=== PATIENT | male | born 1930 | race Caucasian/White ===

== ENCOUNTER 2016-10-12 12:40 | Inpatient (IN) | payer OTHER, MEDICARE ==
[~2016-10-12] VITALS: Ht 182.9 cm; Wt 91.4 kg
[~2016-10-12 12:40] MED LIST: ALEN70TA4 PO; ASCA500 PO; ASPEC81 PO; CLTP PO; CMD25 PO; HYDR-3419 PO; MAGN400T6 PO; MULT-506 PO; SIMV10TA2 PO
[2016-10-12] MEDS ORDERED: CMD/25 PO ×2 (15:46→16:35)
[2016-10-12] MEDS ORDERED: CHOL20005 PO (15:46)
[2016-10-12] MEDS ORDERED: METO-551 PO (15:46)
[2016-10-12] MEDS ORDERED: OMEG-112 PO (15:46)
--- NOTE | 2016-10-12 16:26 | EMERGENCY ROOM VISIT NOTE ---
History First contact with patient: 15:42 (David Marquez MD) First contact with patient: 15:41 (Murray Farris M.D.) Chief Complaint: RESPIRATORY PROBLEMS Stated Complaint: RESP ISSUES-HAS PACEMAKER Nursing Triage Summary: woke up this morning with sob. denies chest pains. denies cough. does not wear home o2. "i just feel like I cant catch my breath" (David Marquez MD) History of Present Illness The patient is a 85 year old male w/ Hx of Afib on Coumadin, Metoprolol a who presents to the Emergency Room with complaints of Generalized weakness and increased SOB. Patient reports he was walking around the house this morning and when trying to make it up a step going into the kitchen he felt increasingly weak like hr couldn't make it up the step. He denies presyncope, syncope, Chest pain, palpitation. He later to his bedroom and relaxed for a few hrs and felt better. Upon arrival of his son to the house, son was concerned about his symptoms and patient subsequently called his University Manager (Len) Dr. Rowland. Dr. Rowland then advised patient to get evaluated at Emergency Dept. Patient reports he never had previous similar symptoms. Pt denies headache, change in vision, fevers, , nausea, vomiting, diarrhea, pain with urination, and change in stool. NO hx of CAD, CVA, CHF, VTE. Patient reportedly had a stress test within the last year that was normal. (David Marquez MD) Review of Systems Pt denies headache, change in vision, fevers, chest pain, shortness of breath, nausea, vomiting, diarrhea, pain with urination, and melena. (David Marquez MD) Past Medical/Surgical History Medical Problems: (1) Atrial fibrillation (2) CKD (chronic kidney disease) stage 3, GFR 30-59 ml/min (3) Generalized weakness (4) History of left heart catheterization (5) HTN (hypertension) (6) Hyperlipidemia (7) SOB (shortness of breath) (8) Tachy-saray syndrome Surgical Problems: (1) History of appendectomy (2) History of cholecystectomy (Murray Farris M.D.) Atrial Fibrillation (David Marquez MD) Social History Smoking Status: Never Smoker Alcohol Use: none Marital Status: Housing Status: lives with family Occupation Status: retired (David Marquez MD) Current/Historical Medications Scheduled Ascorbic Acid (Vitamin C 500 mg), 500 MG PO DAILY Aspirin (Aspirin Ec), 81 MG PO DAILY Calcium Carbonate-Vitamin D W/ (Caltrate 600 Plus), 1 TAB PO DAILY Cholecalciferol (Vitamin D3), 2,000 UNIT PO DAILY Fluorouracil (Topical) (Efudex), 1 APPLN TOP DAILY Krill Oil (Krill Oil 500 mg), 1 CAP PO DAILY Magnesium Oxide (Mag-Ox), 400 MG PO DAILY Metoprolol Tartrate (Lopressor), 50 MG PO BID Multivitamin (Multivitamin), 1 TAB PO DAILY Simvastatin (Zocor), 10 MG PO HS Warfarin Sod (Coumadin), 5 MG PO 5XWK Warfarin Sod (Coumadin), 2.5 MG PO MON & FRI Allergies Coded Allergies: Apple (Verified Allergy, Severe, SWELLING OF LIPS AND HIVES, 07/27/12) Coffee (Verified Allergy, Severe, SWELLING OF LIPS AND HIVES, 07/27/12) Flounder (Verified Allergy, Severe, SWELLING OF LIPS AND HIVES, 07/27/12) Penicillins (Verified Adverse Reaction, Intermediate, GIVES PATIENT THRUSH , 07/27/12) Meperidine (Verified Adverse Reaction, Mild, LIGHTHEADEDNESS, 08/23/09) Physical Exam Vital Signs Date Time Temp Pulse Resp B/P Pulse Ox O2 Delivery O2 Flow Rate FiO2 10/12/16 17:20 84 16 147/75 96 Room Air 10/12/16 16:35 89 10/12/16 15:52 84 20 158/79 100 Room Air 10/12/16 12:50 99 Room Air 10/12/16 12:48 36.4 88 26 123/74 99 Room Air (Murray Farris M.D.) Physical Exam GENERAL: alert, well appearing, well nourished, no distress, non-toxic EYE EXAM: normal conjunctiva, PERRL and EOM's grossly intact OROPHARYNX: no exudate, no erythema, lips, buccal mucosa, and tongue normal and mucous membranes are moist NECK: supple, no nuchal rigidity, no adenopathy, non-tender, NO elevated JVD LUNGS: Clear to auscultation. Normal chest wall mechanics HEART: no murmurs, Irregularly Irregular Rhythm ABDOMEN: abdomen soft, non-tender, normo-active bowel sounds, no masses, no rebound or guarding. SKIN: no rashes and no bruising UPPER EXTREMITIES: upper extremities are grossly normal. LOWER EXTREMITIES: No pitting edema. (David Marquez MD) Medical Decision & Procedures Laboratory Results 10/12/16 16:47 Red Blood Count 3.63, Mean Corpuscular Volume 87.3, Mean Corpuscular Hemoglobin 28.9, Mean Corpuscular Hemoglobin Concent 33.1, Mean Platelet Volume 11.6, Neutrophils (%) (Auto) 69.5, Lymphocytes (%) (Auto) 17.3, Monocytes (%) (Auto) 10.6, Eosinophils (%) (Auto) 2.2, Basophils (%) (Auto) 0.2, Neutrophils # (Auto ) 4.38, Lymphocytes # (Auto) 1.09, Monocytes # (Auto) 0.67, Eosinophils # (Auto ) 0.14, Basophils # (Auto) 0.01 10/12/16 16:47 Test 10/12/16 16:47 White Blood Count 6.30 K/uL (4.8-10.8) Red Blood Count 3.63 M/uL (4.7-6.1) Hemoglobin 10.5 g/dL (14.0-18.0) Hematocrit 31.7 % (42-52) Mean Corpuscular Volume 87.3 fL (80-100) Mean Corpuscular Hemoglobin 28.9 pg (25-34) Mean Corpuscular Hemoglobin Concent 33.1 g/dl (32-36) Platelet Count 161 K/uL (130-400) Mean Platelet Volume 11.6 fL (7.4-10.4) Neutrophils (%) (Auto) 69.5 % Lymphocytes (%) (Auto) 17.3 % Monocytes (%) (Auto) 10.6 % Eosinophils (%) (Auto) 2.2 % Basophils (%) (Auto) 0.2 % Neutrophils # (Auto) 4.38 K/uL (1.4-6.5) Lymphocytes # (Auto) 1.09 K/uL (1.2-3.4) Monocytes # (Auto) 0.67 K/uL (0.11-0.59) Eosinophils # (Auto) 0.14 K/uL (0-0.5) Basophils # (Auto) 0.01 K/uL (0-0.2) RDW Standard Deviation 45.5 fL (36.4-46.3) RDW Coefficient of Variation 14.2 % (11.5-14.5) Immature Granulocyte % (Auto) 0.2 % Immature Granulocyte # (Auto) 0.01 K/uL (0.00-0.02) Prothrombin Time 33.9 SECONDS (9.0-12.0) Prothromb Time International Ratio 3.0 (0.9-1.1) Urine Color YELLOW Urine Appearance CLEAR (CLEAR) Urine pH 5.5 (4.5-7.5) Urine Specific [place] 1.020 (1.000-1.030) Urine Protein NEG (NEG) Urine Glucose (UA) NEG (NEG) Urine Ketones NEG (NEG) Urine Occult Blood NEG (NEG) Urine Nitrite NEG (NEG) Urine Bilirubin NEG (NEG) Urine Urobilinogen NEG (NEG) Urine Leukocyte Esterase NEG (NEG) Anion Gap 5.0 mmol/L (3-11) Est Creatinine Clear Calc Drug Dose 75.6 ml/min Estimated GFR () 91.9 Estimated GFR (Non- 79.3 BUN/Creatinine Ratio 59.4 (10-20) Calcium Level 8.4 mg/dl (8.5-10.1) Magnesium Level 2.3 mg/dl (1.8-2.4) Troponin I < 0.015 ng/ml (0-0.045) (Murray Farris M.D.) Medications Administered Medications (Trade) Dose Ordered Sig/Melanie Route Start Time Stop Time Status Last Admin Dose Admin Sodium Chloride (Nss 500ml) 500 ml @ 500 mls/hr Q1H IV 10/12/16 17:45 10/12/16 21:01 DC 10/12/16 17:51 500 MLS/HR (Murray Farris M.D.) Medical Decision 85 yo M w/ hx of Afib on Coumadin, Metoprolol, p/w Generalized weakness, SOB on exertion, afebrile, normal breath sounds , normal O2 saturation Weakness Differential diagnoses includes but is not limited to pneumonia, bronchitis, COPD/Asthma exacerbation, pneumothorax, pulmonary embolism, congestive heart failure, acute coronary syndrome CBC mild anemia H/H 10.5/31.7 INR: 3 BMP unremarkable Mg wnl CXR: chronic changes, no acute process ECG: Afib with T-wave inversions Troponin <0.015, new onset CAD unlikely -Given 500 ml Fluid -Based on weakness with new ekg changes patient needs further evaluation -[facility]. (David Marquez MD) Resident Physician Supervision Note: Dr. Marquez was resident physician during care of patient. I separately evaluated patient and did history and exam. I discussed the case with the resident and generally agree with the findings and plan. Please see my full H& P note for complete documentation. Documented By: Murray Farris MD (Murray Farris M.D.) Impression Primary Impression: Generalized weakness Additional Impression: Dyspnea on exertion Departure Information Dispostion Admitted as an inpatient Referrals Daniel Rowland M.D. (PCP) Patient Instructions My [facility] Resident Tracking Resident Involvement: Resident Care Provided Care Provided: Adult ED (David Marquez MD) Problem Qualifiers
--- NOTE | 2016-10-12 16:32 | DIAGNOSTIC IMAGING REPORT ---
CHEST ONE VIEW PORTABLE CLINICAL HISTORY: SOB dyspnea COMPARISON STUDY: 04/29/2010 FINDINGS: Mild stable cardiomegaly. Small fixed hiatal hernia. Diaphragms smooth. Lungs are clear. Chronic parenchymal prominence left lung base. IMPRESSION: Chronic change. No acute process. Electronically signed by: Red Hoang M.D. 10/12/2016 4:30 PM Dictated Date/Time: 10/12/2016 4:29 PM
[2016-10-12] MEDS ORDERED: CALCTAB7 PO (16:35)
[2016-10-12] MEDS ORDERED: ASPI81TA28 PO (16:35)
[2016-10-12] MEDS ORDERED: ASCO500C43 PO (16:35)
[2016-10-12] MEDS ORDERED: FLUO5CRE TOP (16:35)
[2016-10-12 17:11] LABS: BASO % 0.2 %; BASO ABS # 0.01 K/uL (0-0.2); COMPLETE YES; EOS % 2.2 %; HEMATOCRIT 31.7 % (42-52); IG% 0.2 %; LYMPH % 17.3 %; LYMPH ABS # 1.09 K/uL (1.2-3.4); MEAN CELL VOLUME 87.3 fL (80-100); MEAN CORPUSCULAR HEMOGLOBIN 28.9 pg (25-34); MEAN CORPUSCULAR HGB CONC 33.1 g/dl (32-36); MEAN PLATELET VOLUME 11.6 fL (7.4-10.4); MONO % 10.6 %; NEUT % 69.5 %; PLATELET COUNT 161 K/uL (130-400); RED BLOOD COUNT 3.63 M/uL (4.7-6.1)
[2016-10-12 17:24] LABS: URINE APPEARANCE CLEAR (CLEAR); URINE BILIRUBIN NEG (NEG); URINE COLOR YELLOW; URINE NITRITE NEG (NEG); URINE PH 5.5 (4.5-7.5); UROBILINOGEN NEG (NEG)
[2016-10-12 17:33] LABS: BLOOD UREA NITROGEN 52 mg/dl (7-18); BUN/CREATININE RATIO 59.4 (10-20); CALCIUM 8.4 mg/dl (8.5-10.1); CARBON DIOXIDE 26 mmol/L (21-32); CHLORIDE 111 mmol/L (98-107); CREATININE 0.87 mg/dl (0.60-1.40); GLUCOSE 84 mg/dl (70-99); MAGNESIUM 2.3 mg/dl (1.8-2.4); POTASSIUM 4.2 mmol/L (3.5-5.1); SODIUM 142 mmol/L (136-145)
[2016-10-12 17:35] LABS: MANUAL MICROSCOPIC REQUIRED? NO; REVIEW REQ? NO
[2016-10-12 17:42] LABS: PROTHROMBIN TIME (PATIENT) 33.9 SECONDS (9.0-12.0)
[2016-10-12] MEDS ORDERED: SODIUM CHLORIDE 0.9% 500ML 500 ML IV SCH (17:45)
--- NOTE | 2016-10-12 18:23 | EMERGENCY ROOM VISIT NOTE ---
History Report prepared by Zoey: Jennifer Begum Under the Supervision of: Dr. Murray Farris M.D. First contact with patient: 15:41 Chief Complaint: RESPIRATORY PROBLEMS Stated Complaint: RESP ISSUES-HAS PACEMAKER Nursing Triage Summary: woke up this morning with sob. denies chest pains. denies cough. does not wear home o2. "i just feel like I cant catch my breath" History of Present Illness The patient is a 85 year old male who presents to the Emergency Room with complaints of improved shortness of breath that started this morning. He states that he feels better now than he did this morning and he states that he slept well last night. The patient walked into the kitchen to get a pill bottle after he ate cereal for breakfast and when he was walking back from the kitchen he felt very weak and short of breath, which made it difficult for him to go down the one step between his kitchen and the family room. He denies any pre-syncope symptoms, as well as LOC. The patient also denies recent head trauma, cough, and melena. The patient's reports that the patient has been experiencing clear rhinorrhea recently. The patient states that as the day went on his symptoms seemed to resolve, but when his son got to the house, he was concerned and called the patient's diamond assorter, Dr. Rowland. Dr. Rowland recommended bringing the patient into the ED for further evaluation. The patient has a history of atrial fibrillation and is on Coumadin. He also has a pacemaker in place. The patient states that when his INR most recently, it was normal. He adds that he is due for a check-up with his PCP next Wednesday. The patient states that he has been eating and drinking normally. He also states that he is taking is medications regularly. The patient denies recent sick contacts. The patient adds that he had a stress test done within the last year that was unremarkable. Source of History: patient, spouse/significant other () Onset: this morning Position: chest Quality: other (shortness of breath) Timing: other (improved) Associated Symptoms: + weakness (generalized), No LOC, No cough, No melena Note: clear rhinorrhea, no pre-syncope symptoms, as well as LOC, no recent head trauma Review of Systems See HPI for pertinent positives & negatives. A total of 10 systems reviewed and were otherwise negative. Past Medical & Surgical Medical Problems: (1) Atrial fibrillation (2) CKD (chronic kidney disease) stage 3, GFR 30-59 ml/min (3) Generalized weakness (4) History of left heart catheterization (5) HTN (hypertension) (6) Hyperlipidemia (7) SOB (shortness of breath) (8) Tachy-saray syndrome Surgical Problems: (1) History of appendectomy (2) History of cholecystectomy Family History Cancer Heart disease Social History Smoking Status: Never Smoker Marital Status: Housing Status: lives with family Current/Historical Medications Scheduled Ascorbic Acid (Vitamin C 500 mg), 500 MG PO DAILY Aspirin (Aspirin Ec), 81 MG PO DAILY Calcium Carbonate-Vitamin D W/ (Caltrate 600 Plus), 1 TAB PO DAILY Cholecalciferol (Vitamin D3), 2,000 UNIT PO DAILY Fluorouracil (Topical) (Efudex), 1 APPLN TOP DAILY Krill Oil (Krill Oil 500 mg), 1 CAP PO DAILY Magnesium Oxide (Mag-Ox), 400 MG PO DAILY Metoprolol Tartrate (Lopressor), 50 MG PO BID Multivitamin (Multivitamin), 1 TAB PO DAILY Simvastatin (Zocor), 10 MG PO HS Warfarin Sod (Coumadin), 5 MG PO 5XWK Warfarin Sod (Coumadin), 2.5 MG PO MON & FRI Allergies Coded Allergies: Apple (Verified Allergy, Severe, SWELLING OF LIPS AND HIVES, 07/27/12) Coffee (Verified Allergy, Severe, SWELLING OF LIPS AND HIVES, 07/27/12) Flounder (Verified Allergy, Severe, SWELLING OF LIPS AND HIVES, 07/27/12) Penicillins (Verified Adverse Reaction, Intermediate, GIVES PATIENT THRUSH , 07/27/12) Meperidine (Verified Adverse Reaction, Mild, LIGHTHEADEDNESS, 08/23/09) Physical Exam Vital Signs Date Time Temp Pulse Resp B/P Pulse Ox O2 Delivery O2 Flow Rate FiO2 10/12/16 17:20 84 16 147/75 96 Room Air 10/12/16 16:35 89 10/12/16 15:52 84 20 158/79 100 Room Air 10/12/16 12:50 99 Room Air 10/12/16 12:48 36.4 88 26 123/74 99 Room Air Physical Exam GENERAL: Patient is well appearing and in no acute distress. HEENT: No acute trauma, normocephalic atraumatic, mucous membranes moist, no nasal congestion, no scleral icterus. NECK: No stridor, no adenopathy, no meningismus, trachea is midline. LUNGS: No dyspnea. Clear to auscultation and equal bilaterally. No wheeze, no rhonchi. HEART: Regular rate and irregular rhythm. No murmurs, rubs, gallops appreciated. ABDOMEN: Soft, nontender, bowel sounds positive, no masses appreciated, no peritonitis. BACK: No midline tenderness, no CVA tenderness EXTREMITIES: Normal motion all extremities, no cyanosis, no edema. NEUROLOGIC: Alert and oriented, no acute motor or sensory deficits, no focal weakness, cranial nerves grossly intact. SKIN: No rash, no jaundice, no diaphoresis. Medical Decision & Procedures ER Provider Diagnostic Interpretation: X ray results are stated below per my interpretation and the radiologist's interpretation. CHEST ONE VIEW PORTABLE IMPRESSION: Chronic change. No acute process. Electronically signed by: Red Hoang M.D. 10/12/2016 4:30 PM Dictated Date/Time: 10/12/2016 4:29 PM Laboratory Results 10/12/16 16:47 Red Blood Count 3.63, Mean Corpuscular Volume 87.3, Mean Corpuscular Hemoglobin 28.9, Mean Corpuscular Hemoglobin Concent 33.1, Mean Platelet Volume 11.6, Neutrophils (%) (Auto) 69.5, Lymphocytes (%) (Auto) 17.3, Monocytes (%) (Auto) 10.6, Eosinophils (%) (Auto) 2.2, Basophils (%) (Auto) 0.2, Neutrophils # (Auto ) 4.38, Lymphocytes # (Auto) 1.09, Monocytes # (Auto) 0.67, Eosinophils # (Auto ) 0.14, Basophils # (Auto) 0.01 10/12/16 16:47 Test 10/12/16 16:47 White Blood Count 6.30 K/uL (4.8-10.8) Red Blood Count 3.63 M/uL (4.7-6.1) Hemoglobin 10.5 g/dL (14.0-18.0) Hematocrit 31.7 % (42-52) Mean Corpuscular Volume 87.3 fL (80-100) Mean Corpuscular Hemoglobin 28.9 pg (25-34) Mean Corpuscular Hemoglobin Concent 33.1 g/dl (32-36) Platelet Count 161 K/uL (130-400) Mean Platelet Volume 11.6 fL (7.4-10.4) Neutrophils (%) (Auto) 69.5 % Lymphocytes (%) (Auto) 17.3 % Monocytes (%) (Auto) 10.6 % Eosinophils (%) (Auto) 2.2 % Basophils (%) (Auto) 0.2 % Neutrophils # (Auto) 4.38 K/uL (1.4-6.5) Lymphocytes # (Auto) 1.09 K/uL (1.2-3.4) Monocytes # (Auto) 0.67 K/uL (0.11-0.59) Eosinophils # (Auto) 0.14 K/uL (0-0.5) Basophils # (Auto) 0.01 K/uL (0-0.2) RDW Standard Deviation 45.5 fL (36.4-46.3) RDW Coefficient of Variation 14.2 % (11.5-14.5) Immature Granulocyte % (Auto) 0.2 % Immature Granulocyte # (Auto) 0.01 K/uL (0.00-0.02) Prothrombin Time 33.9 SECONDS (9.0-12.0) Prothromb Time International Ratio 3.0 (0.9-1.1) Urine Color YELLOW Urine Appearance CLEAR (CLEAR) Urine pH 5.5 (4.5-7.5) Urine Specific [place] 1.020 (1.000-1.030) Urine Protein NEG (NEG) Urine Glucose (UA) NEG (NEG) Urine Ketones NEG (NEG) Urine Occult Blood NEG (NEG) Urine Nitrite NEG (NEG) Urine Bilirubin NEG (NEG) Urine Urobilinogen NEG (NEG) Urine Leukocyte Esterase NEG (NEG) Anion Gap 5.0 mmol/L (3-11) Est Creatinine Clear Calc Drug Dose 75.6 ml/min Estimated GFR () 91.9 Estimated GFR (Non- 79.3 BUN/Creatinine Ratio 59.4 (10-20) Calcium Level 8.4 mg/dl (8.5-10.1) Magnesium Level 2.3 mg/dl (1.8-2.4) Troponin I < 0.015 ng/ml (0-0.045) Laboratory results as reviewed by me. Medications Administered Medications (Trade) Dose Ordered Sig/Melanie Route Start Time Stop Time Status Last Admin Dose Admin Sodium Chloride (Nss 500ml) 500 ml @ 500 mls/hr Q1H IV 10/12/16 17:45 10/12/16 21:01 DC 10/12/16 17:51 500 MLS/HR ECG Indication: SOB/dyspnea Rate (beats per minute): 85 Rhythm: atrial fibrillation Findings: T-wave inversion (Anterolateral) Comparison ECG Date: Multiple Prior Change: Anterolateral T-wave inversions are new compared to previous EKGs, atrial fibrillation has replaced a paced rhythm in the patient's most recent EKGs ED Course 1545: The medical device engineer, Dr. David Marquez, evaluated the patient at this time. We discussed his findings and potential treatment plans. 1640: The patient was evaluated in room B8. A complete history and physical exam was performed. 1745: Ordered Sodium Chloride 500 ml @ 500 mls/hr IV 175: Upon Dr. Marquez's reevaluation, the patient is resting comfortably. He discussed results and treatment plan with the patient. The patient verbalized understanding and agreement with the treatment plan. The patient will be evaluated for further management. 1754: Dr. Marquez discussed the patient's case with Nelly Harrington. The patient will be evaluated for further treatment and disposition. Medical Decision Differential: Sepsis, Infectious (UTI/Pneumonia/Meningitis/etc), Metabolic/ Electrolyte Abnormality, Cardiac, Hepatic, Endocrine, Toxicologic, Neurologic, amongst other pathologies entertained. 85 yr old male with acute onset generalized weakness starting earlier today which he notes is mildly better than earlier but still persists. He has clear T wave inversions on EKG which have acutely changed from previous EKGs. With this and symptoms I feel monitoring further reasonable and hospitalist was consulted. Consults Time Called: 1750 Consulting Physician: Nelly Harrington Returned Call: 1754 Dr. Marquez discussed the patient's case with Nelly Harrington. The patient will be evaluated for further treatment and disposition. Impression Primary Impression: Generalized weakness Additional Impression: T wave inversion in EKG Scribe Attestation The scribe's documentation has been prepared under my direction and personally reviewed by me in its entirety. I confirm that the note above accurately reflects all work, treatment, procedures, and medical decision making performed by me. Departure Information Dispostion Being Evaluated By Hospitalist Referrals Daniel Rowland M.D. (PCP) Patient Instructions My [facility] Problem Qualifiers
[2016-10-12] MEDS ORDERED: NITROGLYCERIN 0.4 MG SL PER TAB CHARGE SL PRN (18:45)
[2016-10-12] MEDS ORDERED: ONDANSETRON INJ 2 MG/ML 2 ML VIAL IV PRN (18:45)
[2016-10-12] MEDS ORDERED: ACETAMINOPHEN 325 MG TAB PO PRN (18:45)
[2016-10-12] MEDS ORDERED: KRIL1CAP24 PO (18:49)
[2016-10-12] MEDS ORDERED: WARFARIN SOD 2.5 MG TAB PO SCH (19:00)
--- NOTE | 2016-10-12 19:14 | History and Physical ---
History & Physical Date & Time of Service: Oct 12, 2016 at 18:55 Chief Complaint: Resp Issues-Has Pacemaker Primary Care Physician: Rambo Castro D.O. History of Present Illness Source: patient This is an 85 y/o male with PMHx of CKD stage 3, Atrial Fibrillation on Coumadin , HTN, Dyslipidemia and other problems as outlined below who presents to the ED c/o generalized weakness that began this morning Today, patient had just finished eating his breakfast when he became very weak to the point that he was unable to climb up one strep. His weakness was associated with exertional SOB. Patient was eventually able to climb the step however he felt completely wiped out and exhausted. Yesterday patient climbed 13 steps to the basement with no issues. Pt called his commission specialist (Dr. Rowland) today who recommended he go to the ED for further evaluation. Pt has a history of Afib on Coumadin. He had a negative stress test in October 2015. Pt has no history of CAD or PE. He currently lives at home with his . Pt denies fever/chills, diaphoresis, chest pain, palpitations, syncope, pre-syncope, wheezing, abd pain, N/V, bowel or bladder issues, LE edema ,calf pain, unilateral weakness, facial droop, slurred speech, lightheadedness/dizziness. In the ED, vitals are stable. Trop is negative and EKG + T wave inversions in inferior and anterolateral leads. CXR no acute process. Pt is stable and will be admitted for further evaluation and treatment. 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 Status: Chronic Surgical Problems: (1) History of appendectomy Status: Resolved (2) History of cholecystectomy Status: Resolved Family History Cancer Heart disease Social History Smoking Status: Never Smoker Alcohol Use: none Drug Use: none Marital Status: Housing status: lives with significant other Occupational Status: retired Immunizations History of Influenza Vaccine: No History of Tetanus Vaccine?: Yes History of Pneumococcal: Unknown History of Hepatitis B Vaccine: No Multi-Drug Resistant Organisms History of MDRO: No Allergies Coded Allergies: Apple (Verified Allergy, Severe, SWELLING OF LIPS AND HIVES, 07/27/12) Coffee (Verified Allergy, Severe, SWELLING OF LIPS AND HIVES, 07/27/12) Flounder (Verified Allergy, Severe, SWELLING OF LIPS AND HIVES, 07/27/12) Penicillins (Verified Adverse Reaction, Intermediate, GIVES PATIENT THRUSH , 07/27/12) Meperidine (Verified Adverse Reaction, Mild, LIGHTHEADEDNESS, 08/23/09) Home Medications Scheduled Ascorbic Acid (Vitamin C 500 mg), 500 MG PO DAILY Aspirin (Aspirin Ec), 81 MG PO DAILY Calcium Carbonate-Vitamin D W/ (Caltrate 600 Plus), 1 TAB PO DAILY Cholecalciferol (Vitamin D3), 2,000 UNIT PO DAILY Fluorouracil (Topical) (Efudex), 1 APPLN TOP DAILY Krill Oil (Krill Oil 500 mg), 1 CAP PO DAILY Magnesium Oxide (Mag-Ox), 400 MG PO DAILY Metoprolol Tartrate (Lopressor), 50 MG PO BID Multivitamin (Multivitamin), 1 TAB PO DAILY Simvastatin (Zocor), 10 MG PO HS Warfarin Sod (Coumadin), 5 MG PO 5XWK Warfarin Sod (Coumadin), 2.5 MG PO MON & FRI Review of Systems Constitutional: + fatigue, + weakness, No chills, No fever, No sweats Eyes: No diplopia, No worsening of vision ENT: No hearing loss Respiratory: + dyspnea on exertion, + shortness of breath, No cough, No dyspnea at rest Cardiovascular: No chest pain, No claudication, No edema, No palpitations Abdomen: No constipation, No diarrhea, No nausea, No pain, No vomiting Musculoskeletal: No calf pain, No swelling Genitourinary - Male: No dysuria Neurologic: No weakness Psychiatric: No depression symptoms Endocrine: + fatigue Hematologic / Lymphatic: No abnormal bleeding/bruising Integumentary: No new/changing skin lesions Physical Exam Vital Signs Date Time Temp Pulse Resp B/P Pulse Ox O2 Delivery O2 Flow Rate FiO2 10/12/16 17:20 84 16 147/75 96 Room Air 10/12/16 16:35 89 10/12/16 15:52 84 20 158/79 100 Room Air 10/12/16 12:50 99 Room Air 10/12/16 12:48 36.4 88 26 123/74 99 Room Air General Appearance: WD/WN, no apparent distress, + pertinent finding (Pt is laying in bed with and 2 sons at bedside ) Head: normocephalic, atraumatic Eyes: normal inspection ENT: hearing grossly normal Neck: supple Respiratory/Chest: chest non-tender, lungs clear, normal breath sounds, no respiratory distress Cardiovascular: no edema, no murmur, + irregularly irregular (rate controlled) Abdomen/GI: normal bowel sounds, non tender, soft Back: normal inspection Extremities/Musculoskelatal: normal inspection, no calf tenderness, no pedal edema Neurologic/Psych: alert, normal mood/affect, oriented x 3 Skin: normal color, warm/dry Diagnostics Laboratory Results Results Past 24 Hours Test 10/12/16 16:47 Range/Units White Blood Count 6.30 4.8-10.8 K/uL Red Blood Count 3.63 4.7-6.1 M/uL Hemoglobin 10.5 14.0-18.0 g/dL Hematocrit 31.7 42-52 % Mean Corpuscular Volume 87.3 80-100 fL Mean Corpuscular Hemoglobin 28.9 25-34 pg Mean Corpuscular Hemoglobin Concent 33.1 32-36 g/dl Platelet Count 161 130-400 K/uL Mean Platelet Volume 11.6 7.4-10.4 fL Neutrophils (%) (Auto) 69.5 % Lymphocytes (%) (Auto) 17.3 % Monocytes (%) (Auto) 10.6 % Eosinophils (%) (Auto) 2.2 % Basophils (%) (Auto) 0.2 % Neutrophils # (Auto) 4.38 1.4-6.5 K/uL Lymphocytes # (Auto) 1.09 1.2-3.4 K/uL Monocytes # (Auto) 0.67 0.11-0.59 K/uL Eosinophils # (Auto) 0.14 0-0.5 K/uL Basophils # (Auto) 0.01 0-0.2 K/uL RDW Standard Deviation 45.5 36.4-46.3 fL RDW Coefficient of Variation 14.2 11.5-14.5 % Immature Granulocyte % (Auto) 0.2 % Immature Granulocyte # (Auto) 0.01 0.00-0.02 K/uL Prothrombin Time 33.9 9.0-12.0 SECONDS Prothromb Time International Ratio 3.0 0.9-1.1 Urine Color YELLOW Urine Appearance CLEAR CLEAR Urine pH 5.5 4.5-7.5 Urine Specific [place] 1.020 1.000-1.030 Urine Protein NEG NEG Urine Glucose (UA) NEG NEG Urine Ketones NEG NEG Urine Occult Blood NEG NEG Urine Nitrite NEG NEG Urine Bilirubin NEG NEG Urine Urobilinogen NEG NEG Urine Leukocyte Esterase NEG NEG Sodium Level 142 136-145 mmol/L Potassium Level 4.2 3.5-5.1 mmol/L Chloride Level 111 98-107 mmol/L Carbon Dioxide Level 26 21-32 mmol/L Anion Gap 5.0 3-11 mmol/L Blood Urea Nitrogen 52 7-18 mg/dl Creatinine 0.87 0.60-1.40 mg/dl Est Creatinine Clear Calc Drug Dose 75.6 ml/min Estimated GFR () 91.9 Estimated GFR (Non- 79.3 BUN/Creatinine Ratio 59.4 10-20 Random Glucose 84 70-99 mg/dl Calcium Level 8.4 8.5-10.1 mg/dl Magnesium Level 2.3 1.8-2.4 mg/dl Troponin I < 0.015 0-0.045 ng/ml Diagnostic Radiology CXR IMPRESSION: Chronic change. No acute process EKG EKG: rate controlled Afib with T wave inversion in inferior and anterolateral leads; T wave inversion is new finding when compared to EKG from 04/29/10 Impression Assessment and Plan EXERTIONAL SOB; R/O ACS pt presented with generalized weakness assoc with exertional SOB; denies chest pain -admit observation status to telemetry -RFs include HTN, Dyslipidemia, age and sex -negative stress test October 2015 -EKG + new T wave inversions in inferior and anterolateral leads; repeat EKG PRN chest pain and in AM -Initial troponin is negative; continue to monitor with serial cardiac enzymes q6h -obtain echo to r/o cardiac wall motion abnormalities -interrogate pacemaker -cont ASA, BB and statin -consult cardiology, Dr. Suh -pending input -pt is currently chest pain free -continue to monitor GENERALIZED WEAKNESS -improving -PT/OT eval CKD STAGE 3 -creatinine 0.87 ( baseline 1.1) -cont to monitor with daily prp and avoid nephrotoxic agents when able ATRIAL FIBRILLATION -EKG: rate controlled Afib -cont Coumadin and metoprolol -INR therapeutic at 3; cont to monitor daily TACHY-SARAY SYNDROME -s/p pacemaker insertion 2005 HTN -BP stable -cont metoprolol -monitor DYSLIPIDEMIA -cont statin DVT PROPHYLAXIS -Coumadin CODE STATUS -FULL CODE per discussion with patient upon admission DISPO Observation status until further workup is complete. Pt seen in collaboration with Dr. Gonzalez. Please see his addendum for further details. Thanks! Attending Addendum Pt was seen and examined with family member at bedside.Agreed with Rowena HU's physical exam, assessment and Plan. 85 y/o male with PMHx of CKD stage 3, Atrial Fibrillation on Coumadin, HTN, Dyslipidemia presents to the ED for generalized weakness that happened this morning. Pt said that this morning he feels very weak to the point where he could not climb one step. pt said that he never felt like that before. he said that the symptom last about 5 minutes. he said that now he is back to his baseline. denies any chest pain, palpitation, dizziness. General- no acute distress Head- atraumatic Eyes- PERRL, EOMI ENT- oropharynx clear Neck- supple, no JVD Lungs- clear to auscultation, no wheezing Heart- irregular rhythm Abdomen- normal bowel sounds, soft A/P Generalized weakness associated with SOB Telemetry for observation EKG showed new T wave inversions in inferior and anterolateral leads Repeat EKG in AM 1st set troponin is negative, follow up 2 more sets interrogate pacemaker cont ASA, BB and statin consult cardiology, Dr. Suh -pending input resolved EKG, imaging, lab reviewed Please refer to Rowena HU's documentation for other problems. Spike Gonzalez MD VTE Prophylaxis VTE Risk Assessment Done? Y/N: Yes Risk Level: High
[2016-10-12] MEDS ORDERED: IV FLUIDS COMPLETED PRN (19:45)
[2016-10-12 21:39] VITALS: BP 157/71; PULSE 87; TEMP 36.3; O2SAT 97; Ht 182.9 cm; Wt 91.4 kg
[2016-10-12] MEDS: SIMVASTATIN 10 MG TAB PO SCH (21:43)
[2016-10-12] MEDS: METOPROLOL TARTRATE 50 MG TAB PO SCH (21:44)
[2016-10-12 23:30] VITALS: BP 150/76; PULSE 68; TEMP 36.8; O2SAT 97
[2016-10-13 04:01] VITALS: BP 104/58; PULSE 75; TEMP 36.8; O2SAT 97
[2016-10-13 07:16] VITALS: BP 117/63; PULSE 69; TEMP 36.5; O2SAT 98
[2016-10-13 07:30] LABS: HEMATOCRIT 26.9 % (42-52); MEAN CELL VOLUME 87.3 fL (80-100); MEAN CORPUSCULAR HEMOGLOBIN 29.2 pg (25-34); MEAN CORPUSCULAR HGB CONC 33.5 g/dl (32-36); MEAN PLATELET VOLUME 10.8 fL (7.4-10.4); PLATELET COUNT 144 K/uL (130-400); RED BLOOD COUNT 3.08 M/uL (4.7-6.1); WHITE BLOOD COUNT 5.65 K/uL (4.8-10.8)
[2016-10-13 07:47] LABS: PROTHROMBIN TIME (PATIENT) 34.1 SECONDS (9.0-12.0)
[2016-10-13 08:04] LABS: BUN/CREATININE RATIO 48.8 (10-20); CALCIUM 8.2 mg/dl (8.5-10.1); CREATININE 0.89 mg/dl (0.60-1.40); POTASSIUM 4.6 mmol/L (3.5-5.1)
[2016-10-13] MEDS: MAGNESIUM OXIDE 400 MG TAB PO SCH (08:14)
[2016-10-13] MEDS: ASCORBIC ACID 500 MG TAB PO SCH (08:14)
[2016-10-13] MEDS: METOPROLOL TARTRATE 50 MG TAB PO SCH ×2 (08:14→20:03)
[2016-10-13] MEDS: MULTIVITAMIN TAB PO SCH (08:15)
[2016-10-13] MEDS: CALCIUM 600MG + VIT D 400 IU TAB PO SCH (08:15)
[2016-10-13] MEDS: CHOLECALCIFEROL 1000 INTER.UNIT TAB PO SCH (08:15)
[2016-10-13] MEDS: ASPIRIN 81 MG ECTAB PO SCH (08:16)
[2016-10-13 08:57] VITALS: BP 148/75; PULSE 69; O2SAT 99
[2016-10-13] MEDS ORDERED: KRILL OIL PO SCH (09:00)
--- NOTE | 2016-10-13 12:45 | ECHOCARDIOGRAM REPORT ---
*NOTICE TO RECEIVING LIBERTARIAN AGENCY This information is strictly Confidential and protected under [place] law. [place] law prohibits you from making any further disclosure of this information unless further disclosure is expressly permitted by the written consent of the person to whom it pertains or is authorized by law. A general authorization for the release of medical or other information is not sufficient for this purpose. Hospital accepts no responsibility if the information is made available to any other person, INCLUDING THE PATIENT. Interpretation Summary * Name: JONATHAN PROCTOR Study Date: 10/13/2016 10:31 AM BP: 117/63 mmHg * Patient Location: [facility] HR: 75 * : 1930 (M/d/yyyy) Gender: Male Height: 72 in * Age: 85 yrs Ethnicity: CA Weight: 209 lb * Ordering Physician: Rowena Pedro * Referring Physician: JACQUIE * Performed By: Luh Herzog RDCS * * Reason For Study: SOB, WEAKNESS WITH EKG CHANGES * BSA: 2.2 m2 * History: SOB, WEAKNESS WITH EKG CHANGES * -- Conclusions -- * Atrial fibrillation with controlled ventricualar rate was present during the echocardiogram examination. * Severe bitatrial enlargement is noted. * The septal and apical wall motion is consistent with right ventricular pacemaker activation. * Otherwise , the LV wall motion is normal. * Left ventricular systolic function is normal. * The qualitative LV ejection fraction=55% * There is moderate concentric left ventricular hypertrophy. * The aortic valve is mildly calcified. * Aortic stenosis is absent. * Mild aortic regurgitation. * There is moderate mitral annular calcification. * There is mild tricuspid regurgitation. * Doppler findings do not suggest pulmonary hypertension. * The LV diastolic function is abnormal based on LVH and Left Atrial enlargement, but is not graded due to the presence of underlying atrial fibrillation. * Compared to the report of the outpatient study dated 11/01/15, the LVEF appears to be improved on the present study as visualized with the administration of ultrasound contrast. Procedure Details * A contrast injection of Definity was performed to improve assessment of LV function. * Contrast was injected into an intravenous site in the left arm. * One vial of Definity ultrasound contrast was diluted in normal saline to a total volume of 10 ml. A total of '2' ml of solution was administered during imaging. * Lot # [id number] of Definity utilized for procedure. * Expiration date NOV 03. * The attending nurse who injected the contrast agent was SIENNA ESTRADA RN. * A complete two-dimensional transthoracic echocardiogram was performed (2D, M-mode, Doppler and color flow Doppler). Left Ventricle * The left ventricular cavity is small. * There is moderate concentric left ventricular hypertrophy. * Left ventricular systolic function is normal. * The qualitative LV ejection fraction=55% * The septal and apical wall motion is consistent with right ventricular pacemaker activation. Otherwise , the LV wall motion is normal. Right Ventricle * The right ventricle is normal size. * The right ventricular systolic function is normal as assessed by tricuspid annular plane systolic excursion (TAPSE) (normal >1.5 cm). Atria * The left atrium is severely dilated. * The right atrium is severely dilated. * There is no evidence of atrial septal defect, but resolution does not allow assessment for a patent foramen ovale. Mitral Valve * There is moderate mitral annular calcification. * There is no mitral valve stenosis. * Significant mitral regurgitation is absent. Tricuspid Valve * The tricuspid valve is normal. * There is no tricuspid stenosis. * There is mild tricuspid regurgitation. * Doppler findings do not suggest pulmonary hypertension. Aortic Valve * The aortic valve is trileaflet. * The aortic valve is mildly calcified. * Aortic stenosis is absent. * Mild aortic regurgitation. Pulmonic Valve * The pulmonary valve is inadequately visualized, but the Doppler data is adequate for interpretation. * Pulmonic stenosis is absent. * Moderate pulmonic valvular regurgitation. Great Vessels * The aortic root and proximal ascending aorta are normal sized. Pericardium/Pleural * There is no pericardial effusion. Right Ventricle * An intracardiac device lead is noted in the right ventricle. Great Vessels * Normal inferior vena cava diameter and respiratory variation suggests normal central venous pressure. Left Ventricular Diastolic Function * The LV diastolic function is abnormal based on LVH and Left Atrial enlargement, but is not graded due to the presence of underlying atrial fibrillation. MMode 2D Measurements and Calculations IVSd 1.5 cm IVSs 2.0 cm LVIDd 4.2 cm LVIDs 2.7 cm LVPWd 1.6 cm LVPWs 1.8 cm IVS/LVPW 0.94 FS 35.4 % EDV(Teich) 80.2 ml ESV(Teich) 28.0 ml EF(Teich) 65.1 % EDV(cubed) 76.0 ml ESV(cubed) 20.5 ml EF(cubed) 73.0 % % IVS thick 37.3 % % LVPW thick 15.1 % LV mass(C)d 258.8 grams LV mass(C)dI 119.2 grams/m\S\2 LV mass(C)s 219.8 grams LV mass(C)sI 101.3 grams/m\S\2 SV(Teich) 52.2 ml SI(Teich) 24.0 ml/m\S\2 SV(cubed) 55.5 ml SI(cubed) 25.6 ml/m\S\2 LVAd ap4 26.6 cm\S\2 LVLd ap4 7.7 cm EDV(MOD-sp4) 74.5 ml LVAs ap4 13.9 cm\S\2 LVLs ap4 6.8 cm ESV(MOD-sp4) 23.9 ml EF(MOD-sp4) 67.9 % LVAd ap2 28.4 cm\S\2 LVLd ap2 8.5 cm EDV(MOD-sp2) 78.1 ml LVAs ap2 14.5 cm\S\2 LVLs ap2 7.0 cm ESV(MOD-sp2) 26.1 ml EF(MOD-sp2) 66.6 % SV(MOD-sp4) 50.6 ml SI(MOD-sp4) 23.3 ml/m\S\2 SV(MOD-sp2) 52.0 ml SI(MOD-sp2) 24.0 ml/m\S\2 Doppler Measurements and Calculations MV E max chuy 99.4 cm/sec MV dec time 0.26 sec Ao V2 max 164.4 cm/sec Ao max PG 10.8 mmHg Ao max PG (full) 8.0 mmHg AI max chuy 335.3 cm/sec AI max PG 45.0 mmHg AI dec slope 155.9 cm/sec\S\2 AI P1/2t 629.9 msec LV V1 max PG 2.8 mmHg LV V1 max 84.4 cm/sec TR max chuy 255.0 cm/sec
[2016-10-13 13:38] LABS: CKMB/CK RATIO 3.2 (0-3.0)
[2016-10-13 14:29] VITALS: BP 133/70; PULSE 86; TEMP 36.5; O2SAT 100
--- NOTE | 2016-10-13 14:52 | Cardiology Consultation ---
Cardiology Consultation Date of Consultation: Oct 13, 2016 History of Present Illness Hawk Rae is an 85-year-old male seen in cardiology consultation per the request of Rowena Pedro PA-C for the evaluation of abnormal EKG and exertional shortness of breath. The patient typically follows with Dr. 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 He previously undergone remote pacemaker implantation, and had a generator change performed in 2012. The patient was in his normal state of health until he got up on the morning of 10/12/16. He went through his morning routine and when he walked up a step and his home he felt profound sudden onset of weakness with associated shortness of breath. He felt as though his legs would give out on him. He rested and the symptoms improved to some degree. This was an abrupt onset episode without persistent symptoms. He denies chest discomfort. He describes generalized profound weakness with shortness of breath. He was admitted via the emergency room. He been seen by physical therapy and did some light bedside exercises and felt well. Overnight last night he had recurrence of his profound weakness while he was standing trying to urinate. At present he is accompanied by his spouse at the bedside. He is in no acute distress. A single set of cardiac enzymes had been drawn yesterday 10/12/16 1647 including negative troponin. I had requested another set which was performed today at 1300 revealing normal CPK and normal troponin level. His BNP level was also within normal limits for his age at 667 PG per mL. I've been asked to see the patient regarding his symptoms and due to concern of T-wave inversions noted in leads V3 to V6 on EKG performed yesterday at 1628. A repeat EKG performed today 10/13 revealed underlying atrial fibrillation with demand ventricular pacemaker. In following the rhythm strip, a few [place] beats are noted with narrow complex QRS complexes and T-wave inversions. In review of his recent outpatient EKG tracings for the most part he is ventricular paced, and although the T-wave inversions are new compared to a EKG from several years ago EKG is somewhat unhelpful due to his chronic ventricular paced rhythm. History PAST MEDICAL HISTORY: 1. Chronic atrial fibrillation, tachycardia-bradycardia syndrome 2. Stage III chronic kidney disease 3. Hypertension 4. Dyslipidemia PAST SURGICAL HISTORY: 1. Remote cardiac catheterization performed when the patient left in [place] , procedures performed in about 1995, and revealed no significant CAD per his recollection. 2. Permanent pacemaker implantation in 2005 with generator change in 2012 3. Remote appendectomy 4. Cholecystectomy FAMILY HISTORY: Cancer heart disease, details unknown SOCIAL HISTORY: Nonsmoker, retired, lives with his spouse his 2 sons who live locally. Review Of Systems See above for pertinent positives & negatives. A total of 10 systems reviewed and were otherwise negative. Allergies Coded Allergies: Apple (Verified Allergy, Severe, SWELLING OF LIPS AND HIVES, 07/27/12) Coffee (Verified Allergy, Severe, SWELLING OF LIPS AND HIVES, 07/27/12) Flounder (Verified Allergy, Severe, SWELLING OF LIPS AND HIVES, 07/27/12) Penicillins (Verified Adverse Reaction, Intermediate, GIVES PATIENT THRUSH , 07/27/12) Meperidine (Verified Adverse Reaction, Mild, LIGHTHEADEDNESS, 08/23/09) Medications Reported Home Medications Medications Dose Route/Sig Max Daily Dose Days Date Category Dose Instructions Krill Oil 500 mg (Krill Oil) 1 Cap Cap 1 Cap PO DAILY 10/12/16 Reported Vitamin C 500 mg (Ascorbic Acid) 1 Chw Chw 500 Mg PO DAILY 10/12/16 Reported Aspirin Ec (Aspirin) 81 Mg Tab 81 Mg PO DAILY 10/12/16 Reported Efudex (Fluorouracil (Topical)) 5 % Cre 1 Appln TOP DAILY 14 10/12/16 Reported Caltrate 600 Plus (Calcium Carbonate-Vitamin D W/) 1 Tab Tab 1 Tab PO DAILY 10/12/16 Reported Coumadin (Warfarin Sod) 2.5 Mg Tab 2.5 Mg PO MON & FRI 10/12/16 Reported Mag-Ox (Magnesium Oxide) 400 Mg Tab 400 Mg PO DAILY 02/28/13 Reported Lopressor (Metoprolol Tartrate) 50 Mg Tab 50 Mg PO BID 02/17/13 Reported Vitamin D3 (Cholecalciferol) 2,000 Unit Tab 2,000 Unit PO DAILY 02/17/13 Reported Coumadin (Warfarin Sod) 2.5 Mg Tab 5 Mg PO 5XWK 02/17/13 Reported TUES,WED,THURS,SAT,SUN Multivitamin (Multivitamins) Tab 1 Tab PO DAILY 04/02/08 Reported Zocor (Simvastatin) 10 Mg Tab 10 Mg PO HS 04/02/08 Reported Physical Exam Vital Signs (Last 8hrs): Last 8 Hrs Date Time Temp Pulse Resp B/P Pulse Ox O2 Delivery O2 Flow Rate FiO2 10/13/16 14:29 36.5 86 20 133/70 100 Room Air 10/13/16 12:00 Room Air 10/13/16 08:57 69 99 10/13/16 07:52 Room Air 10/13/16 07:16 36.5 69 18 117/63 98 Room Air General Appearance: Alert and Oriented x3. NAD. Head: Normocephalic Atraumatic. Eyes: PERRLA, EOMI, conjunctiva and sclera clear Neck: Supple. No carotid bruits noted. No JVD. No HJD. Respiratory: Breath sounds clear to auscultation bilaterally. No w/r/r. Cardiovascular: Reg rate and rhythm. S1 and S2 noted. No murmurs, rubs, gallops. PMI non displace. Abdomen: Normal bowel sounds, soft nontender. no abdominal bruits. Extremities: No edema, no clubbing or cyanosis. distal pulses 2/4 bilaterally. Neuro: No focal deficits. Psychiatric: Normal affect. Data Last Resulted 10/13/16 07:10 Last Resulted 10/13/16 07:10 Past 24 Hours Test 10/12/16 16:47 10/13/16 07:10 10/13/16 13:00 Range/Units Prothromb Time International Ratio 3.0 H 3.0 H 0.9-1.1 Prothrombin Time 33.9 H 34.1 H 9.0-12.0 SECONDS Troponin I < 0.015 < 0.015 0-0.045 ng/ml Creatine Kinase MB 2.0 0.5-3.6 ng/ml Creatine Kinase MB Ratio 3.2 H 0-3.0 Total Creatine Kinase 62 39-308 U/L Imaging: Chest x-ray without any findings to suggest congestive heart failure. EKG: As outlined in history of present illness Telemetry reviewed: Atrial fibrillation, for the most part ventricular paced Summary of transthoracic echocardiogram performed today 10/13/16 reviewed independently by the undersigned: * -- Conclusions -- * Atrial fibrillation with controlled ventricualar rate was present during the echocardiogram examination. * Severe bitatrial enlargement is noted. * The septal and apical wall motion is consistent with right ventricular pacemaker activation. * Otherwise , the LV wall motion is normal. * Left ventricular systolic function is normal. * The qualitative LV ejection fraction=55% * There is moderate concentric left ventricular hypertrophy. * The aortic valve is mildly calcified. * Aortic stenosis is absent. * Mild aortic regurgitation. * There is moderate mitral annular calcification. * There is mild tricuspid regurgitation. * Doppler findings do not suggest pulmonary hypertension. * The LV diastolic function is abnormal based on LVH and Left Atrial enlargement, but is not graded due to the presence of underlying atrial fibrillation. * Compared to the report of the outpatient study dated 11/01/15, the LVEF appears to be improved on the present study as visualized with the administration of ultrasound contrast. Assessment & Plan Impression: 85-year-old male 1. Episodic fatigue associated shortness of breath, without hawk chest discomfort. 2. Euvolemic on physical examination, stable BNP level, stable chest x-ray 3. History of tachycardia-bradycardia syndrome chronic atrial fibrillation with severe biatrial enlargement 4. Normocytic anemia 5. History of stage III chronic kidney disease with stable GFR Discussion/recommendations: The patient has noted T-wave inversions in V4 to V6. Is difficult to determine the chronicity of these changes as for the most part he is ventricular paced. Most recent outpatient pacemaker interrogation in April 2016 revealed that he was ventricular paced 99% of the time. His pacemaker is set for single-chamber VVIR pacing, his right atrial lead was capped when his generator was changed in 2012 due to his chronic atrial fibrillation. Although the EKG changes may be payable representative of ischemia, and his particular case, history and findings suggest that perhaps this is due to T-wave memory phenomenon from chronic pacing. He does have the septal wall motion abnormality but this is likely reflective of the right ventricular pacemaker activation during his echocardiogram. I first impression when I read his history was that perhaps he was experiencing systolic or diastolic heart failure, but based on his physical exam findings, chest x-ray, and low BNP, he is clinically euvolemic, and I do not think his symptoms are due to volume load due to congestive heart failure. It is possible his symptoms are an atypical presentation for angina and a somewhat elderly male in a think would be reasonable to proceed with a pharmacologic nuclear stress test. He had a Lexiscan nuclear stress test in our office in October 2015 and tolerated this well with normal perfusion. Another finding is that his hemoglobin has proximally 10 g/dL. This is a significant change compared to prior outpatient labs with normal hemoglobin of 13.2 on 04/30/16. I've requested iron studies as well as B-12 and folate to be performed with laboratory studies tomorrow. He is to be nothing by mouth after midnight except medications, and he is not having any caffeine after midnight tonight for proposed Lexiscan pharmacologic nuclear stress test. Tim Berg D.O.
[2016-10-13] MEDS: WARFARIN SOD 5 MG TAB PO SCH (16:17)
--- NOTE | 2016-10-13 18:01 | Progress Note ---
Subjective Date of Service: Oct 13, 2016. Subjective Pt evaluation today including: conversation w/ patient, physical exam, lab review, review of studies, review of inpatient medication list Saw/examined the patient in room 275 He is doing okay today; no problems/issues to note states that he came in due to generalized weakness has been doing okay while ambulating here no chest pain, no palpitations Problem List Medical Problems: (1) Atrial fibrillation Status: Chronic (2) Hyperlipidemia Status: Chronic Review of Systems Constitutional: + fatigue, + weakness, No chills, No fever Respiratory: No cough, No shortness of breath, No sputum Cardiac: No chest pain, No edema, No palpitations Abdomen: No diarrhea, No nausea, No pain, No vomiting Heme: No abnormal bleeding/bruising Medications Current Inpatient Medications Medications (Trade) Dose Ordered Sig/Melanie Route Start Time Stop Time Status Last Admin Dose Admin Acetaminophen (Tylenol Tab) 650 mg Q4H PRN PO 10/12/16 18:45 11/11/16 18:44 Ondansetron HCl (Zofran Inj) 4 mg Q6H PRN IV 10/12/16 18:45 11/11/16 18:44 Nitroglycerin (Nitrostat Tab) 0.4 mg UD PRN SL 10/12/16 18:45 11/11/16 18:44 Aspirin (Ecotrin Tab) 81 mg DAILY PO 10/13/16 09:00 11/12/16 08:59 10/13/16 08:16 81 MG Calcium/Vitamin D (Caltrate Plus Tab) 1 tab DAILY PO 10/13/16 09:00 11/12/16 08:59 10/13/16 08:15 1 TAB Magnesium Oxide (Mag-Ox Tab) 400 mg DAILY PO 10/13/16 09:00 11/12/16 08:59 10/13/16 08:14 400 MG Metoprolol Tartrate (Lopressor Tab) 50 mg BID PO 10/12/16 21:00 11/11/16 20:59 10/13/16 08:14 50 MG Multivitamins (Multivitamin Tab) 1 tab DAILY PO 10/13/16 09:00 11/12/16 08:59 10/13/16 08:15 1 TAB Simvastatin (Zocor Tab) 10 mg HS PO 10/12/16 21:00 11/11/16 20:59 10/12/16 21:43 10 MG Warfarin Sodium (Coumadin Tab) 2.5 mg MoFr@1600 PO 10/12/16 19:00 11/11/16 18:59 Warfarin Sodium (Coumadin Tab) 5 mg SuTuWeThSa@1600 PO 10/13/16 16:00 11/12/16 15:59 10/13/16 16:17 5 MG Ascorbic Acid (Vitamin C Tab) 500 mg DAILY PO 10/13/16 09:00 11/12/16 08:59 10/13/16 08:14 500 MG Cholecalciferol (Vitamin D Tab) 2,000 inter.unit DAILY PO 10/13/16 09:00 11/12/16 08:59 10/13/16 08:15 2,000 INTER.UNIT Miscellaneous Information (Order Awaiting Action) 1 ea QS N/A 10/13/16 00:00 11/12/16 00:00 Miscellaneous (Iv Fluids Completed) 1 ea PRN PRN N/A 10/12/16 19:45 10/12/17 19:44 Objective Vital Signs Date Time Temp Pulse Resp B/P Pulse Ox O2 Delivery O2 Flow Rate FiO2 10/13/16 16:00 Room Air 10/13/16 14:29 36.5 86 20 133/70 100 Room Air 10/13/16 12:00 Room Air 10/13/16 08:57 69 99 10/13/16 07:52 Room Air 10/13/16 07:16 36.5 69 18 117/63 98 Room Air 10/13/16 04:01 36.8 75 18 104/58 97 Room Air 10/13/16 04:00 Room Air 10/12/16 23:45 Room Air 10/12/16 23:30 36.8 68 16 150/76 97 Room Air 10/12/16 21:39 36.3 87 20 157/71 97 Room Air 10/12/16 20:28 88 18 139/77 96 10/12/16 19:04 72 18 182/91 98 Room Air Physical Exam General Appearance: no apparent distress Respiratory/Chest: chest non-tender, lungs clear, normal breath sounds, no respiratory distress, no accessory muscle use Cardiovascular: regular rate, rhythm, no edema, no gallop, no JVD, no murmur Abdomen: normal bowel sounds, non tender, soft Extremities: normal inspection, no pedal edema Neurologic/Psychiatric: no motor/sensory deficits, alert, normal mood/affect Laboratory Results Last 24 Hours Test 10/13/16 07:10 10/13/16 13:00 White Blood Count 5.65 K/uL Red Blood Count 3.08 M/uL Hemoglobin 9.0 g/dL Hematocrit 26.9 % Mean Corpuscular Volume 87.3 fL Mean Corpuscular Hemoglobin 29.2 pg Mean Corpuscular Hemoglobin Concent 33.5 g/dl RDW Standard Deviation 46.4 fL RDW Coefficient of Variation 14.5 % Platelet Count 144 K/uL Mean Platelet Volume 10.8 fL Prothrombin Time 34.1 SECONDS Prothromb Time International Ratio 3.0 Sodium Level 144 mmol/L Potassium Level 4.6 mmol/L Chloride Level 113 mmol/L Carbon Dioxide Level 25 mmol/L Anion Gap 6.0 mmol/L Blood Urea Nitrogen 43 mg/dl Creatinine 0.89 mg/dl Est Creatinine Clear Calc Drug Dose 67.8 ml/min Estimated GFR () 91.0 Estimated GFR (Non- 78.5 BUN/Creatinine Ratio 48.8 Random Glucose 88 mg/dl Calcium Level 8.2 mg/dl Total Creatine Kinase 62 U/L Creatine Kinase MB 2.0 ng/ml Creatine Kinase MB Ratio 3.2 Troponin I < 0.015 ng/ml Pro-B-Type Natriuretic Peptide 667 pg/ml Assessment and Plan This is an 85 year old male with PMH of tachy-saray syndrome s/p pacemaker in situ, atrial fibrillation on anticoagulation, HTN, CKD stage 3, HLD presents with generalized weakness Generalized Weakness multifactorial: functional decline, anemia ordered PT/OT has been ambulating well; continue therapy may need rehab on discharge Exertional SOB possibly related to CHF vs. anemia appreciate cardiology input must r/o ACS appreciate EKG interpretation will obtain a nuclear stress in AM he is NPO after midnight Anemia appreciate cardiology input drop of Hgb from 13 to 10 he is on Coumadin, but noted no bleeding iron studies, B12, folate pending A. Fib rate controlled INR = 3.0 continue Coumadin Tachy-Saray Syndrome s/p pacemaker in situ HTN blood pressure stable continue home medications DVT ppx Coumadin FULL CODE
[2016-10-13 19:56] VITALS: BP 143/79; PULSE 70; TEMP 36.5; O2SAT 99
[2016-10-13] MEDS: SIMVASTATIN 10 MG TAB PO SCH (20:03)
[2016-10-14] VITALS (9 sets, daily range): BP systolic 110–173; BP diastolic 51–78; PULSE 56–79; TEMP 36.3–37; O2SAT 97–100
[2016-10-14 07:31] LABS: HEMATOCRIT 28.7 % (42-52); MEAN CORPUSCULAR HEMOGLOBIN 29.4 pg (25-34); MEAN CORPUSCULAR HGB CONC 33.4 g/dl (32-36); MEAN PLATELET VOLUME 11.1 fL (7.4-10.4); PLATELET COUNT 166 K/uL (130-400); RED BLOOD COUNT 3.26 M/uL (4.7-6.1); WHITE BLOOD COUNT 6.86 K/uL (4.8-10.8)
[2016-10-14 08:01] LABS: BUN/CREATININE RATIO 30.3 (10-20); CALCIUM 8.3 mg/dl (8.5-10.1); POTASSIUM 4.6 mmol/L (3.5-5.1)
[2016-10-14 08:06] LABS: FERRITIN 20.3 ng/ml (8.0-388.0)
[2016-10-14] MEDS: CHOLECALCIFEROL 1000 INTER.UNIT TAB PO SCH (09:00)
[2016-10-14] MEDS: ASCORBIC ACID 500 MG TAB PO SCH (09:00)
[2016-10-14] MEDS: CALCIUM 600MG + VIT D 400 IU TAB PO SCH (09:00)
[2016-10-14] MEDS: MAGNESIUM OXIDE 400 MG TAB PO SCH (09:00)
[2016-10-14] MEDS: MULTIVITAMIN TAB PO SCH (09:00)
[2016-10-14] MEDS: METOPROLOL TARTRATE 50 MG TAB PO SCH (10:01)
[2016-10-14] MEDS: ASPIRIN 81 MG ECTAB PO SCH (10:01)
[2016-10-14] MEDS ORDERED: REGADENOSON 0.4 MG/5 ML SYR ONE (11:57)
--- NOTE | 2016-10-14 15:50 | MYOCARDIAL PERFUSION SCAN ---
LEXISCAN CARDIOLITE STRESS TEST DATE OF STUDY: 10/14/2016. ORDERING PROVIDER: Tim Berg D.O. INDICATION: Shortness of breath, generalized episodic fatigue. INJECTION INFORMATION TECHNIQUE: For the stress portion of the study 33 mCi of technetium-99m Cardiolite IV was injected at 1320 p.m. on 10/14/2016. Thirty minutes following the injection, imaging of the heart was performed in multiple projections. For the rest portion of the study 10.6 mCi of technetium-99m Cardiolite was injected at 11:30 a.m. One hour following the injection, imaging of the heart was performed in the same projections. HEMODYNAMIC DATA: The resting heart rate of 61 beats per minute mario to a maximum heart rate of 71 beats per minute. This value represents 52% of the maximal age predicted heart rate. The resting blood pressure mario to a maximum blood pressure of 133/50 mmHg. The stress test was stopped due to protocol. The patient described mild chest heaviness with Lexiscan administration that resolved in the post-pharmacologic stress recovery interval. EKG DATA: Resting EKG revealed underlying atrial fibrillation with nonspecific T-wave changes and demand ventricular pacing. During the stress portion of the test, the rhythm alternated between atrial fibrillation and ventricular pacing. The EKG is inconclusive for ischemia due to the presence of right ventricular paced QRS complexes. RAW IMAGES: The study was of good technical quality. Review of the raw data in a rotational cine format reveals no significant abnormalities. STRESS IMAGES: Stress and rest SPECT images demonstrate homogenous tracer distribution throughout the myocardium without any significant perfusion defects. LEFT VENTRICLE: Gated SPECT images reveal normal myocardial thickening and wall motion. The left ventricular ejection fraction was calculated to be 75%. CONCLUSION: Lexiscan nuclear stress test was negative for ischemia. ECG portion of the test was nondiagnostic due to the presence of frequent ventricular pacing. No ventricular arrhythmias were observed. [facility]
--- NOTE | 2016-10-14 16:12 | Cardiology Follow-Up ---
Subjective General Date of Service: Oct 14, 2016. Chief Complaint: follow up generalized weakness , sob Pt evaluation today including: conversation w/ patient, conversation w/ family , physical exam, lab review, conversation w/ informatics consultant History of Present Illness The patient is a 85 year old male seen in follow up. Patient was seen on the floor prior to his nuclear stress. Was seen during stress test and assessed again post test. Patient feels well. No recurrence of symptoms. Allergies Coded Allergies: Apple (Verified Allergy, Severe, SWELLING OF LIPS AND HIVES, 07/27/12) Coffee (Verified Allergy, Severe, SWELLING OF LIPS AND HIVES, 07/27/12) Flounder (Verified Allergy, Severe, SWELLING OF LIPS AND HIVES, 07/27/12) Penicillins (Verified Adverse Reaction, Intermediate, GIVES PATIENT THRUSH , 07/27/12) Meperidine (Verified Adverse Reaction, Mild, LIGHTHEADEDNESS, 08/23/09) Social History Smoking Status: Unknown if Ever Smoked Hx Tobacco Use In Past Year?: No Hx Alcohol Use - Type And Amou: No Hx Substance Use - Type And Am: No Problem List Medical Problems: (1) Atrial fibrillation Status: Chronic (2) Hyperlipidemia Status: Chronic Physical Exam Vital Signs Last Vital Signs Documentation Date Time Temp Pulse Resp B/P Pulse Ox O2 Delivery O2 Flow Rate FiO2 10/14/16 15:03 36.3 62 18 173/78 100 Room Air Physical Exam Constitutional: General Apperance: heathly-appearing Level of Distress: NAD Neck: supple, trachea midline Lungs: Auscultation: no wheezing, no rales/crackles, no rhonchi Cardiovascular: Heart Auscultation: no murmurs, irregular rate rhythm Extremities: no cyanosis, no edema Neurologic: Gait & Station: pertinent finding (no focal deficits) Assessment and Plan Assessment and Plan Telemetry reviewed: after pt returned from stress test , a 22 beat vladimir of nonsustained ventricular tachycardia was noted at 10/14/16 , 15:09 , with rapid ventricular rate Impression: 81 year old male 1. Episode of NSVT as above, symptoms were not reproduced during episode, patient was already in bead having just returned from nuclear medicine 2. Normal LVEF 3. Chronic AF 4. Normal nuclear stress, no evidence of ischemia, AF and V pacing noted during stress, no PVCs or NSVT 5. Newly diagnosed mild iron deficiency anemia Plan: Electrolytes were stable on am. BP elevated. Will increase metoprolol tartrate to 75 mg BID. Add oral amiodarone. Check CMP , and TSH in am given amiodarone initiation. Will ask for EP input. Remain on telemetry. Repeat INR in am, given amiodarone start. Laboratory Results Last 24 Hours Test 10/14/16 07:17 White Blood Count 6.86 K/uL Red Blood Count 3.26 M/uL Hemoglobin 9.6 g/dL Hematocrit 28.7 % Mean Corpuscular Volume 88.0 fL Mean Corpuscular Hemoglobin 29.4 pg Mean Corpuscular Hemoglobin Concent 33.4 g/dl RDW Standard Deviation 46.6 fL RDW Coefficient of Variation 14.4 % Platelet Count 166 K/uL Mean Platelet Volume 11.1 fL Sodium Level 144 mmol/L Potassium Level 4.6 mmol/L Chloride Level 112 mmol/L Carbon Dioxide Level 24 mmol/L Anion Gap 8.0 mmol/L Blood Urea Nitrogen 30 mg/dl Creatinine 1.00 mg/dl Est Creatinine Clear Calc Drug Dose 56.2 ml/min Estimated GFR () 79.7 Estimated GFR (Non- 68.8 BUN/Creatinine Ratio 30.3 Random Glucose 105 mg/dl Calcium Level 8.3 mg/dl Iron Level 25 mcg/dl Total Iron Binding Capacity 332 mcg/dl Transferrin 245 mg/dl Transferrin % Saturation 7 % Ferritin 20.3 ng/ml Vitamin B12 Level 416 pg/mL Folate 23.51 ng/mL
[2016-10-14] MEDS: WARFARIN SOD 5 MG TAB PO SCH (17:13)
[2016-10-14] MEDS: AMIODARONE 200 MG TAB PO SCH (17:13)
--- NOTE | 2016-10-14 19:16 | Progress Note ---
Subjective Date of Service: Oct 14, 2016. Subjective Pt evaluation today including: conversation w/ patient, physical exam, lab review, review of studies, review of inpatient medication list Saw/examined the patient in room 238 He had his lexiscan performed and was negative Then developed a 20 beat run of v-tach currently no symptoms noted, he feels fine, eating well, no other issues to note Problem List Medical Problems: (1) Atrial fibrillation Status: Chronic (2) Hyperlipidemia Status: Chronic Review of Systems Constitutional: No chills, No fever Respiratory: No cough, No dyspnea on exertion, No shortness of breath, No sputum Cardiac: No chest pain, No edema, No palpitations Abdomen: No diarrhea, No nausea, No pain, No vomiting Medications Current Inpatient Medications Medications (Trade) Dose Ordered Sig/Melanie Route Start Time Stop Time Status Last Admin Dose Admin Acetaminophen (Tylenol Tab) 650 mg Q4H PRN PO 10/12/16 18:45 11/11/16 18:44 Nitroglycerin (Nitrostat Tab) 0.4 mg UD PRN SL 10/12/16 18:45 11/11/16 18:44 Aspirin (Ecotrin Tab) 81 mg DAILY PO 10/13/16 09:00 11/12/16 08:59 10/14/16 10:01 81 MG Calcium/Vitamin D (Caltrate Plus Tab) 1 tab DAILY PO 10/13/16 09:00 11/12/16 08:59 10/13/16 08:15 1 TAB Magnesium Oxide (Mag-Ox Tab) 400 mg DAILY PO 10/13/16 09:00 11/12/16 08:59 10/13/16 08:14 400 MG Multivitamins (Multivitamin Tab) 1 tab DAILY PO 10/13/16 09:00 11/12/16 08:59 10/13/16 08:15 1 TAB Simvastatin (Zocor Tab) 10 mg HS PO 10/12/16 21:00 11/11/16 20:59 10/13/16 20:03 10 MG Warfarin Sodium (Coumadin Tab) 2.5 mg MoFr@1600 PO 10/12/16 19:00 11/11/16 18:59 Warfarin Sodium (Coumadin Tab) 5 mg SuTuWeThSa@1600 PO 10/13/16 16:00 11/12/16 15:59 10/14/16 17:13 5 MG Ascorbic Acid (Vitamin C Tab) 500 mg DAILY PO 10/13/16 09:00 11/12/16 08:59 10/13/16 08:14 500 MG Cholecalciferol (Vitamin D Tab) 2,000 inter.unit DAILY PO 10/13/16 09:00 11/12/16 08:59 10/13/16 08:15 2,000 INTER.UNIT Miscellaneous Information (Order Awaiting Action) 1 ea QS N/A 10/13/16 00:00 11/12/16 00:00 Miscellaneous (Iv Fluids Completed) 1 ea PRN PRN N/A 10/12/16 19:45 10/12/17 19:44 Ferrous Sulfate (Feosol Tab) 325 mg QAM PO 10/15/16 09:00 11/14/16 08:59 Metoprolol Tartrate (Lopressor Tab) 75 mg BID PO 10/14/16 21:00 11/13/16 20:59 Amiodarone HCl (Cordarone Tab) 200 mg TIDM PO 10/14/16 16:51 11/13/16 16:59 10/14/16 17:13 200 MG Objective Vital Signs Date Time Temp Pulse Resp B/P Pulse Ox O2 Delivery O2 Flow Rate FiO2 10/14/16 15:03 36.3 62 18 173/78 100 Room Air 10/14/16 15:00 64 12 149/68 100 Room Air 10/14/16 14:47 66 100 10/14/16 12:00 Room Air 10/14/16 11:54 36.8 56 18 112/51 97 Room Air 10/14/16 08:00 Room Air 10/14/16 07:44 36.4 79 20 115/69 98 Room Air 10/14/16 04:44 36.9 71 18 122/72 99 10/14/16 04:00 Room Air 10/14/16 00:06 37.0 66 16 132/73 98 Room Air 10/14/16 00:00 Room Air 10/13/16 20:00 Room Air 10/13/16 19:56 36.5 70 16 143/79 99 Room Air Physical Exam General Appearance: no apparent distress Respiratory/Chest: lungs clear, normal breath sounds, no respiratory distress, no accessory muscle use Cardiovascular: regular rate, rhythm, no edema, no murmur Extremities: normal inspection, no pedal edema Laboratory Results Last 24 Hours Test 10/14/16 07:17 White Blood Count 6.86 K/uL Red Blood Count 3.26 M/uL Hemoglobin 9.6 g/dL Hematocrit 28.7 % Mean Corpuscular Volume 88.0 fL Mean Corpuscular Hemoglobin 29.4 pg Mean Corpuscular Hemoglobin Concent 33.4 g/dl RDW Standard Deviation 46.6 fL RDW Coefficient of Variation 14.4 % Platelet Count 166 K/uL Mean Platelet Volume 11.1 fL Sodium Level 144 mmol/L Potassium Level 4.6 mmol/L Chloride Level 112 mmol/L Carbon Dioxide Level 24 mmol/L Anion Gap 8.0 mmol/L Blood Urea Nitrogen 30 mg/dl Creatinine 1.00 mg/dl Est Creatinine Clear Calc Drug Dose 56.2 ml/min Estimated GFR () 79.7 Estimated GFR (Non- 68.8 BUN/Creatinine Ratio 30.3 Random Glucose 105 mg/dl Calcium Level 8.3 mg/dl Iron Level 25 mcg/dl Total Iron Binding Capacity 332 mcg/dl Transferrin 245 mg/dl Transferrin % Saturation 7 % Ferritin 20.3 ng/ml Vitamin B12 Level 416 pg/mL Folate 23.51 ng/mL Assessment and Plan This is an 85 year old male with PMH of tachy-saray syndrome s/p pacemaker in situ, atrial fibrillation on anticoagulation, HTN, CKD stage 3, HLD presents with generalized weakness V-tach episode of beat run of v-tach appreciate cardiology consultation metoprolol increased amiodarone added pacer check in AM Generalized Weakness multifactorial: functional decline, anemia ordered PT/OT has been ambulating well; continue therapy may need rehab on discharge Exertional SOB 10/14 had his lexiscan performed and negative possibly related to CHF vs. anemia appreciate cardiology input must r/o ACS appreciate EKG interpretation will obtain a nuclear stress in AM he is NPO after midnight Anemia appreciate cardiology input drop of Hgb from 13 to 10 he is on Coumadin, but noted no bleeding iron studies, B12, folate pending A. Fib rate controlled INR = 3.0 continue Coumadin Tachy-Saray Syndrome s/p pacemaker in situ HTN blood pressure stable continue home medications DVT ppx Coumadin FULL CODE
[2016-10-14] MEDS: METOPROLOL TARTRATE 25 MG TAB PO SCH (21:11)
[2016-10-14] MEDS: SIMVASTATIN 10 MG TAB PO SCH (21:37)
[2016-10-15 01:09] LABS: BUN/CREATININE RATIO 25.5 (10-20); CALCIUM 7.7 mg/dl (8.5-10.1); CREATININE 0.91 mg/dl (0.60-1.40); POTASSIUM 4.2 mmol/L (3.5-5.1)
[2016-10-15 03:26] VITALS: BP 117/62; PULSE 84; TEMP 36.6; O2SAT 100
[2016-10-15 06:47] LABS: HEMATOCRIT 25.3 % (42-52); MEAN CELL VOLUME 86.9 fL (80-100); MEAN CORPUSCULAR HEMOGLOBIN 28.9 pg (25-34); MEAN CORPUSCULAR HGB CONC 33.2 g/dl (32-36); MEAN PLATELET VOLUME 10.9 fL (7.4-10.4); PLATELET COUNT 151 K/uL (130-400); RED BLOOD COUNT 2.91 M/uL (4.7-6.1); WHITE BLOOD COUNT 4.85 K/uL (4.8-10.8)
[2016-10-15 07:00] LABS: INR 3.5 (0.9-1.1); PROTHROMBIN TIME (PATIENT) 38.9 SECONDS (9.0-12.0)
[2016-10-15 07:13] LABS: ALT/SGPT 20 U/L (12-78); BLOOD UREA NITROGEN 21 mg/dl (7-18); BUN/CREATININE RATIO 20.9 (10-20); CALCIUM 7.9 mg/dl (8.5-10.1); CARBON DIOXIDE 26 mmol/L (21-32); CHLORIDE 113 mmol/L (98-107); GLUCOSE 96 mg/dl (70-99); POTASSIUM 4.5 mmol/L (3.5-5.1); SODIUM 145 mmol/L (136-145)
[2016-10-15 07:16] LABS: ALKALINE PHOSPHATASE 49 U/L (45-117); AST/SGOT 19 U/L (15-37)
[2016-10-15] MEDS: ASCORBIC ACID 500 MG TAB PO SCH (07:38)
[2016-10-15] MEDS: METOPROLOL TARTRATE 25 MG TAB PO SCH (07:38)
[2016-10-15] MEDS: CHOLECALCIFEROL 1000 INTER.UNIT TAB PO SCH (07:38)
[2016-10-15] MEDS: AMIODARONE 200 MG TAB PO SCH (07:39)
[2016-10-15] MEDS: MULTIVITAMIN TAB PO SCH (07:39)
[2016-10-15] MEDS: MAGNESIUM OXIDE 400 MG TAB PO SCH (07:39)
[2016-10-15] MEDS: CALCIUM 600MG + VIT D 400 IU TAB PO SCH (07:39)
[2016-10-15 08:20] VITALS: BP 134/67; PULSE 73; TEMP 36.5; O2SAT 99
[2016-10-15] MEDS: ASPIRIN 81 MG ECTAB PO SCH (08:38)
--- NOTE | 2016-10-15 08:41 | Progress Note ---
Progress Note Date of Service Oct 15, 2016. Progress Note Full EP consult dictated; pacemaker interrogated. Strips from telemetry reviewed. It does appear to be NSVT and had another episode last night. Nuclear is negative for ischemia and EF preserved. His symptoms of near syncope sound more to be secondary to orthostatic hypotension and the NSVT is an incidental finding. Agree with amiodarone and titrating BB. We will continue to monitor for further episodes on ppm interrogations; the device was reprogrammed today to lower rate we save episodes. No further cardiac testing necessary at this juncture.
[2016-10-15] MEDS ORDERED: FERROUS SULFATE 325 MG TAB PO SCH (09:00)
--- NOTE | 2016-10-15 11:36 | Cardiology Follow-Up ---
Subjective General Date of Service: Oct 15, 2016. Chief Complaint: follow up generalized weakness , sob Pt evaluation today including: conversation w/ patient, physical exam History of Present Illness The patient is a 85 year old male seen in follow up. Patient feels well. No dizziness, syncope or near syncope. Telemetry reveals two episodes of NSVT overnight, a 10 Beat run at 2349 on 10/14 , and an 8 beat run at 2:24 am on 10/15. Patient was asymptomatic with these episodes, that seem to have occurred with sleep. Allergies Coded Allergies: Apple (Verified Allergy, Severe, SWELLING OF LIPS AND HIVES, 07/27/12) Coffee (Verified Allergy, Severe, SWELLING OF LIPS AND HIVES, 07/27/12) Flounder (Verified Allergy, Severe, SWELLING OF LIPS AND HIVES, 07/27/12) Penicillins (Verified Adverse Reaction, Intermediate, GIVES PATIENT THRUSH , 07/27/12) Meperidine (Verified Adverse Reaction, Mild, LIGHTHEADEDNESS, 08/23/09) Social History Smoking Status: Unknown if Ever Smoked Hx Tobacco Use In Past Year?: No Hx Alcohol Use - Type And Amou: No Hx Substance Use - Type And Am: No Problem List Medical Problems: (1) Atrial fibrillation Status: Chronic (2) Hyperlipidemia Status: Chronic Physical Exam Vital Signs Last Vital Signs Documentation Date Time Temp Pulse Resp B/P Pulse Ox O2 Delivery O2 Flow Rate FiO2 10/15/16 08:20 36.5 73 16 134/67 99 Room Air Physical Exam Constitutional: General Apperance: heathly-appearing Level of Distress: NAD Neck: supple, trachea midline Lungs: Auscultation: no wheezing, no rales/crackles, no rhonchi Cardiovascular: Heart Auscultation: no murmurs, irregular rate rhythm Extremities: no cyanosis, no edema Neurologic: Gait & Station: pertinent finding (no focal deficits) Assessment and Plan Assessment and Plan Telemetry reviewed:as above. Last Resulted 10/15/16 06:32 Last Resulted 10/15/16 06:32 Past 24 Hours Test 10/15/16 06:32 Range/Units Prothromb Time International Ratio 3.5 H 0.9-1.1 Prothrombin Time 38.9 H 9.0-12.0 SECONDS Impression: 81 year old male 1. Episodes of NSVT as above, perhaps incidental finding that may or may not be related to his presenting symptoms 2. Normal LVEF 3. Chronic AF 4. Normal nuclear stress, no evidence of ischemia, AF and V pacing noted during stress, no PVCs or NSVT 5. Newly diagnosed mild iron deficiency anemia Plan: EP input noted and appreciated. Electrolytes are stable. BP improved. Stable for discharge on : metoprolol tartrate to 75 mg BID. Amiodarone 200 mg BID (baseline LFTs, TFTs , CXR stable) INR is 3.5 today. Will hold coumadin dose today, 10/15 given amiodarone. Reduce coumadin dose from 5 mg alternating with 2.5 mg , to 2.5 mg daily starting tomorrow. Has follow up with anticoag visit planned as outpatient. Follow up with Dr Rowland or MAYTE in 1-2 weeks. Laboratory Results Last 24 Hours Test 10/15/16 00:30 10/15/16 06:32 Sodium Level 144 mmol/L 145 mmol/L Potassium Level 4.2 mmol/L 4.5 mmol/L Chloride Level 113 mmol/L 113 mmol/L Carbon Dioxide Level 27 mmol/L 26 mmol/L Anion Gap 4.0 mmol/L 6.0 mmol/L Blood Urea Nitrogen 23 mg/dl 21 mg/dl Creatinine 0.91 mg/dl 1.00 mg/dl Est Creatinine Clear Calc Drug Dose 61.8 ml/min 60.4 ml/min Estimated GFR () 89.4 79.7 Estimated GFR (Non- 77.1 68.8 BUN/Creatinine Ratio 25.5 20.9 Random Glucose 91 mg/dl 96 mg/dl Calcium Level 7.7 mg/dl 7.9 mg/dl Magnesium Level 2.0 mg/dl 2.0 mg/dl Thyroid Stimulating Hormone (TSH) 2.290 uIu/ml White Blood Count 4.85 K/uL Red Blood Count 2.91 M/uL Hemoglobin 8.4 g/dL Hematocrit 25.3 % Mean Corpuscular Volume 86.9 fL Mean Corpuscular Hemoglobin 28.9 pg Mean Corpuscular Hemoglobin Concent 33.2 g/dl RDW Standard Deviation 46.0 fL RDW Coefficient of Variation 14.6 % Platelet Count 151 K/uL Mean Platelet Volume 10.9 fL Prothrombin Time 38.9 SECONDS Prothromb Time International Ratio 3.5 Total Bilirubin 0.3 mg/dl Direct Bilirubin < 0.1 mg/dl Aspartate Amino Transf (AST/SGOT) 19 U/L Alanine Aminotransferase (ALT/SGPT) 20 U/L Alkaline Phosphatase 49 U/L Total Protein 5.4 gm/dl Albumin 2.9 gm/dl
--- NOTE | 2016-10-15 12:22 | Progress Note ---
Subjective Date of Service: Oct 15, 2016. Subjective Pt evaluation today including: conversation w/ patient, physical exam, lab review, review of studies, conversation w/ insurance healthcare consultant, review of inpatient medication list Saw/examined the patient in room 238 He is doing well, no complaints at this time, ate lunch, ambulating well; eager to go home Problem List Medical Problems: (1) Atrial fibrillation Status: Chronic (2) Hyperlipidemia Status: Chronic Review of Systems Constitutional: No weakness Respiratory: No cough, No shortness of breath, No sputum Cardiac: No chest pain Abdomen: No diarrhea, No nausea, No pain, No vomiting Medications Current Inpatient Medications Medications (Trade) Dose Ordered Sig/Melanie Route Start Time Stop Time Status Last Admin Dose Admin Acetaminophen (Tylenol Tab) 650 mg Q4H PRN PO 10/12/16 18:45 11/11/16 18:44 Nitroglycerin (Nitrostat Tab) 0.4 mg UD PRN SL 10/12/16 18:45 11/11/16 18:44 Aspirin (Ecotrin Tab) 81 mg DAILY PO 10/13/16 09:00 11/12/16 08:59 10/15/16 08:38 81 MG Calcium/Vitamin D (Caltrate Plus Tab) 1 tab DAILY PO 10/13/16 09:00 11/12/16 08:59 10/15/16 07:39 1 TAB Magnesium Oxide (Mag-Ox Tab) 400 mg DAILY PO 10/13/16 09:00 11/12/16 08:59 10/15/16 07:39 400 MG Multivitamins (Multivitamin Tab) 1 tab DAILY PO 10/13/16 09:00 11/12/16 08:59 10/15/16 07:39 1 TAB Simvastatin (Zocor Tab) 10 mg HS PO 10/12/16 21:00 11/11/16 20:59 10/14/16 21:37 10 MG Ascorbic Acid (Vitamin C Tab) 500 mg DAILY PO 10/13/16 09:00 11/12/16 08:59 10/15/16 07:38 500 MG Cholecalciferol (Vitamin D Tab) 2,000 inter.unit DAILY PO 10/13/16 09:00 11/12/16 08:59 10/15/16 07:38 2,000 INTER.UNIT Miscellaneous Information (Order Awaiting Action) 1 ea QS N/A 10/13/16 00:00 11/12/16 00:00 Miscellaneous (Iv Fluids Completed) 1 ea PRN PRN N/A 10/12/16 19:45 10/12/17 19:44 Ferrous Sulfate (Feosol Tab) 325 mg QAM PO 10/15/16 09:00 11/14/16 08:59 10/15/16 08:38 325 MG Metoprolol Tartrate (Lopressor Tab) 75 mg BID PO 10/14/16 21:00 11/13/16 20:59 10/15/16 07:38 75 MG Amiodarone HCl (Cordarone Tab) 200 mg BID PO 10/15/16 21:00 11/14/16 20:59 Objective Vital Signs Date Time Temp Pulse Resp B/P Pulse Ox O2 Delivery O2 Flow Rate FiO2 10/15/16 12:00 Room Air 10/15/16 08:20 36.5 73 16 134/67 99 Room Air 10/15/16 08:00 Room Air 10/15/16 04:02 Room Air 10/15/16 03:26 36.6 84 16 117/62 100 Room Air 10/15/16 00:02 Room Air 10/14/16 23:30 36.3 79 17 110/62 99 Room Air 10/14/16 20:00 Room Air 10/14/16 19:30 36.5 73 20 169/60 99 Room Air 10/14/16 15:03 36.3 62 18 173/78 100 Room Air 10/14/16 15:00 64 12 149/68 100 Room Air 10/14/16 14:47 66 100 Physical Exam General Appearance: no apparent distress Respiratory/Chest: chest non-tender, lungs clear, normal breath sounds, no respiratory distress, no accessory muscle use Cardiovascular: no edema, no gallop, no JVD, no murmur, + irregularly irregular Extremities: normal inspection, no pedal edema Laboratory Results Last 24 Hours Test 10/15/16 00:30 10/15/16 06:32 Sodium Level 144 mmol/L 145 mmol/L Potassium Level 4.2 mmol/L 4.5 mmol/L Chloride Level 113 mmol/L 113 mmol/L Carbon Dioxide Level 27 mmol/L 26 mmol/L Anion Gap 4.0 mmol/L 6.0 mmol/L Blood Urea Nitrogen 23 mg/dl 21 mg/dl Creatinine 0.91 mg/dl 1.00 mg/dl Est Creatinine Clear Calc Drug Dose 61.8 ml/min 60.4 ml/min Estimated GFR () 89.4 79.7 Estimated GFR (Non- 77.1 68.8 BUN/Creatinine Ratio 25.5 20.9 Random Glucose 91 mg/dl 96 mg/dl Calcium Level 7.7 mg/dl 7.9 mg/dl Magnesium Level 2.0 mg/dl 2.0 mg/dl Thyroid Stimulating Hormone (TSH) 2.290 uIu/ml White Blood Count 4.85 K/uL Red Blood Count 2.91 M/uL Hemoglobin 8.4 g/dL Hematocrit 25.3 % Mean Corpuscular Volume 86.9 fL Mean Corpuscular Hemoglobin 28.9 pg Mean Corpuscular Hemoglobin Concent 33.2 g/dl RDW Standard Deviation 46.0 fL RDW Coefficient of Variation 14.6 % Platelet Count 151 K/uL Mean Platelet Volume 10.9 fL Prothrombin Time 38.9 SECONDS Prothromb Time International Ratio 3.5 Total Bilirubin 0.3 mg/dl Direct Bilirubin < 0.1 mg/dl Aspartate Amino Transf (AST/SGOT) 19 U/L Alanine Aminotransferase (ALT/SGPT) 20 U/L Alkaline Phosphatase 49 U/L Total Protein 5.4 gm/dl Albumin 2.9 gm/dl Assessment and Plan This is an 85 year old male with PMH of tachy-saray syndrome s/p pacemaker in situ, atrial fibrillation on anticoagulation, HTN, CKD stage 3, HLD presents with generalized weakness NS V-tach 10/15 appreciate cardiology and EP input plan is for increased dose of metoprolol continue amiodarone 200mg BID 10/14 episode of beat run of v-tach appreciate cardiology consultation metoprolol increased amiodarone added pacer check in AM Generalized Weakness multifactorial: functional decline, anemia ordered PT/OT has been ambulating well; continue therapy may need rehab on discharge Exertional SOB 10/14 had his lexiscan performed and negative possibly related to CHF vs. anemia appreciate cardiology input must r/o ACS appreciate EKG interpretation will obtain a nuclear stress in AM he is NPO after midnight Anemia appreciate cardiology input drop of Hgb from 13 to 10 he is on Coumadin, but noted no bleeding iron studies, B12, folate pending A. Fib 10/15 hold Coumadin today restart at 2.5mg daily outpatient Coumadin clinic 10/14 rate controlled INR = 3.0 continue Coumadin Tachy-Saray Syndrome s/p pacemaker in situ HTN blood pressure stable continue home medications DVT ppx Coumadin FULL CODE
[2016-10-15] MEDS ORDERED: METO-722 PO (12:32)
[2016-10-15] MEDS ORDERED: CRD200 PO (12:32)
[2016-10-15] MEDS ORDERED: FRRS300 PO (12:32)
[2016-10-15] MEDS ORDERED: CMD/25 PO (12:32)
--- NOTE | 2016-10-15 12:36 | Discharge Instructions ---
Discharge Instructions Date of Service Oct 15, 2016. Admission Reason for Admission: Generalized Weakness, Sob Discharge Discharge Diagnosis / Problem: A. Fib, NSVT, Generalized Weakness Discharge Goals Goal(s): Decrease discomfort, Improve function, Diagnostic testing, Therapeutic intervention Activity Recommendations Activity Limitations: resume your previous activity . Instructions / Follow-Up Instructions / Follow-Up Please follow-up with Dr. Castro on October 22 @ 10:50AM * You will be prescribed Amiodarone 200mg twice a day * Your dose of metoprolol is increased to 75mg twice a day * do not take Coumadin tonight (10/15) - start 2.5mg daily starting tomorrow () - follow-up with the Coumadin clinic * You will also be prescribed iron tablets as your iron levels were slightly low * Your primary care can recheck labs (H/H) in a few weeks * Follow-up with cardiology, Dr. Rowland, in 1-2 weeks Current Hospital Diet Patient's current hospital diet: Regular Diet Discharge Diet Recommended Diet: AHA Diet (Heart Healthy) Pending Studies Studies pending at discharge: no Medical Emergencies . Who to Call and When: Medical Emergencies: If at any time you feel your situation is an emergency, please call 911 immediately. . Non-Emergent Contact Non-Emergency issues call your: Primary Care Provider . . "Provider Documentation" section prepared by Dianna Langford. VTE Core Measure Inpt VTE Proph given/why not?: Warfarin (Coumadin)
--- NOTE | 2016-10-15 12:38 | Discharge Summary ---
Discharge Summary Date of Service Oct 15, 2016. Discharge Summary Admission Date: Oct 14, 2016 at 19:13 Discharge Date: Oct 15, 2016 Discharge Disposition: Home with services Principal Diagnosis: A. Fib Episode of NSVT Normal Lexiscan Normal LVEF Medication Reconciliation New Medications: Amiodarone HCl (Amiodarone HCl) 200 Mg Tab 200 MG PO BID for 30 Days, #60 TAB Ferrous Sulfate (Ferrous Sulfate) 325 Mg Tab 325 MG PO QAM for 30 Days, #30 TAB Changed Medications: Metoprolol Tartrate (Metoprolol Tartrate) 75 Mg Tab 75 MG PO BID for 30 Days, #60 TAB (Changed from: Metoprolol Tartrate (Lopressor ) 50 Mg Tab 50 Mg PO BID) Warfarin Sod (Coumadin) 2.5 Mg Tab 2.5 MG PO DAILY for 30 Days, #30 TAB (Changed from: MON & FRI) Continued Medications: Ascorbic Acid (Vitamin C 500 mg) 1 Chw Chw 500 MG PO DAILY Aspirin (Aspirin Ec) 81 Mg Tab 81 MG PO DAILY Calcium Carbonate-Vitamin D W/ (Caltrate 600 Plus) 1 Tab Tab 1 TAB PO DAILY, TAB Cholecalciferol (Vitamin D3) 2,000 Unit Tab 2000 UNIT PO DAILY Fluorouracil (Topical) (Efudex) 5 % Cre 1 APPLN TOP DAILY for 14 Days, #40 GM Krill Oil (Krill Oil 500 mg) 1 Cap Cap 1 CAP PO DAILY Magnesium Oxide (Mag-Ox) 400 Mg Tab 400 MG PO DAILY, TAB Multivitamin (Multivitamin) Tab 1 TAB PO DAILY, 0 Refills Simvastatin (Zocor) 10 Mg Tab 10 MG PO HS, 0 Refills Discontinued Medications: Warfarin Sod (Coumadin) 2.5 Mg Tab 5 MG PO 5XWK, TAB TU,WED,THURS,SAT,SUN Admission Information HPI (per Admitting provider): This is an 85 y/o male with PMHx of CKD stage 3, Atrial Fibrillation on Coumadin , HTN, Dyslipidemia and other problems as outlined below who presents to the ED c/o generalized weakness that began this morning Today, patient had just finished eating his breakfast when he became very weak to the point that he was unable to climb up one strep. His weakness was associated with exertional SOB. Patient was eventually able to climb the step however he felt completely wiped out and exhausted. Yesterday patient climbed 13 steps to the basement with no issues. Pt called his electronics technology instructor (Dr. Rowland) today who recommended he go to the ED for further evaluation. Pt has a history of Afib on Coumadin. He had a negative stress test in October 2015. Pt has no history of CAD or PE. He currently lives at home with his . Pt denies fever/chills, diaphoresis, chest pain, palpitations, syncope, pre-syncope, wheezing, abd pain, N/V, bowel or bladder issues, LE edema ,calf pain, unilateral weakness, facial droop, slurred speech, lightheadedness/dizziness. In the ED, vitals are stable. Trop is negative and EKG + T wave inversions in inferior and anterolateral leads. CXR no acute process. Pt is stable and will be admitted for further evaluation and treatment. Physical Exam (per Admitting): General Appearance: WD/WN, no apparent distress, + pertinent finding (Pt is laying in bed with and 2 sons at bedside ) Head: normocephalic, atraumatic Eyes: normal inspection ENT: hearing grossly normal Neck: supple Respiratory/Chest: chest non-tender, lungs clear, normal breath sounds, no respiratory distress Cardiovascular: no edema, no murmur, + irregularly irregular (rate controlled) Abdomen/GI: normal bowel sounds, non tender, soft Back: normal inspection Extremities/Musculoskelatal: normal inspection, no calf tenderness, no pedal edema Neurologic/Psych: alert, normal mood/affect, oriented x 3 Skin: normal color, warm/dry Hospital Course This is an 85 year old male with PMH of tachy-saray syndrome s/p pacemaker in situ, atrial fibrillation on anticoagulation, HTN, CKD stage 3, HLD presents with generalized weakness NS V-tach 10/15 appreciate cardiology and EP input plan is for increased dose of metoprolol continue amiodarone 200mg BID 10/14 episode of beat run of v-tach appreciate cardiology consultation metoprolol increased amiodarone added pacer check in AM Generalized Weakness multifactorial: functional decline, anemia ordered PT/OT has been ambulating well; continue therapy may need rehab on discharge Exertional SOB 10/14 had his lexiscan performed and negative possibly related to CHF vs. anemia appreciate cardiology input must r/o ACS appreciate EKG interpretation will obtain a nuclear stress in AM he is NPO after midnight Anemia appreciate cardiology input drop of Hgb from 13 to 10 he is on Coumadin, but noted no bleeding iron studies, B12, folate pending A. Fib 10/15 hold Coumadin today restart at 2.5mg daily outpatient Coumadin clinic 10/14 rate controlled INR = 3.0 continue Coumadin Tachy-Saray Syndrome s/p pacemaker in situ HTN blood pressure stable continue home medications DVT ppx Coumadin FULL CODE Total time spent on discharge = 50 minutes This includes examination of the patient, discharge planning, medication reconciliation, and communication with other providers. Discharge Instructions Please follow-up with Dr. Castro on October 22 @ 10:50AM * You will be prescribed Amiodarone 200mg twice a day * Your dose of metoprolol is increased to 75mg twice a day * do not take Coumadin tonight (10/15) - start 2.5mg daily starting tomorrow () - follow-up with the Coumadin clinic * You will also be prescribed iron tablets as your iron levels were slightly low * Your primary care can recheck labs (H/H) in a few weeks * Follow-up with cardiology, Dr. Rowland, in 1-2 weeks
[2016-10-15 12:50] VITALS: BP 124/70; PULSE 67; TEMP 36.7; O2SAT 99
[2016-10-15] MEDS ORDERED: AMIODARONE 200 MG TAB PO SCH (21:00)
--- NOTE | 2016-10-16 14:38 | CARDIOLOGY CONSULTATION ---
DATE OF CONSULTATION: 10/15/2016 DATE OF CONSULTATION: 10/15/2016. REASON FOR CONSULTATION: Nonsustained ventricular tachycardia. REFERRING PHYSICIAN: Dr. Berg. HISTORY OF PRESENT ILLNESS: This is an 85-year-old gentleman who was admitted to the [facility] secondary to near syncopal episode, sounds like he had a few episodes of lightheadedness and dizziness, all with changing in position and felt like he was going to pass out. He denied any palpitations, chest pains or shortness of breath and he never did pass out. He has been monitored and workup in the hospital. He has underlying atrial fibrillation and on telemetry he was found to have a 20 beat run of nonsustained VT, so then he had an ischemic workup including a nuclear stress test which was unremarkable. This prompted electrophysiology consult. The patient had another episode of nonsustained VT 10 beats. Again, he was asymptomatic with it. PAST MEDICAL HISTORY: 1. Permanent atrial fibrillation. 2. Tachybrady syndrome, status post permanent pacemaker with capping of the RA lead. 3. Chronic kidney disease stage III. 4. Hypertension. 5. Hyperlipidemia. PAST SURGICAL HISTORY: Remote catheterization in [facility] in 1995. No significant coronary disease as per the patient's recollection. Permanent pacemaker initially in 2002 with generator change in 2012, remote appendectomy and cholecystectomy. FAMILY HISTORY: Positive for cancer and heart disease, details unknown. SOCIAL HISTORY: He is a nonsmoker, lives with his spouse. He is retired. REVIEW OF SYSTEMS: All other 10 point review of systems were reviewed and are essentially negative at this time. ALLERGIES: APPLE, COFFEE, FLOUNDER, PENICILLIN AND MEPERIDINE. PHYSICAL EXAMINATION: VITAL SIGNS: Temperature 36.5 degrees Celsius, heart rate 73, respirations 16, blood pressure 134/67. Oxygen saturation 99% on room air. GENERAL: He is awake, alert and oriented x3, no acute distress. Sitting up comfortably in the edge of the bed. HEAD, EYES, EARS, NOSE, AND THROAT: Normocephalic, atraumatic. Extraocular motions intact. Sclera nonicteric. Mucous membranes moist. NECK: Supple, no carotid bruits appreciated. No JVD. Carotid upstrokes normal. CARDIOVASCULAR: Irregularly irregular S1, S2. No murmur appreciated. The pacemaker site is without any evidence of threatened erosion. PULMONARY: Clear to auscultation bilaterally. No wheezes, rales, or rhonchi. ABDOMEN: Positive bowel sounds, soft, nontender, nondistended. EXTREMITIES: No clubbing or cyanosis of the fingers. No edema of the bilateral extremities. Peripheral pulses intact. NEUROLOGIC: Grossly intact. PERTINENT TESTING: Hematology: WBC 4.8, hemoglobin 8.4, hematocrit 25, platelets 151. Chemistry: Sodium 145, potassium 4.5, chloride 113, carbon dioxide 26, BUN 21, creatinine 1, glucose 96, calcium 7.9, magnesium 2. LFTs: AST 19, ALT 20, alkaline phosphatase 49, total bilirubin 0.3, total protein 5.4, albumin 2.9. EKG 09/13/2016, atrial flutter, 82 beats per minute. On 09/12/2016, atrial flutter, 89 beats per minute. On 09/12/2016, atrial flutter, 128 beats per minute and on 08/22/2015 sinus rhythm, 76 beats per minute. On telemetry review, there are 2 episodes of nonsustained VT at 10 beat run and also a 20 beat run. On pacemaker interrogation today the patient is in atrial fibrillation, occasional V pacing was seen. Lead testing was normal with threshold 0.375 volts at 0.4 milliseconds. R waves were 11 to 22 millivolts, and impedance was 805 ohms. In review of the 2 ventricular nonsustained VTs it does look like it is probably nonsustained VT and not atrial fib with rapid ventricular response. Echocardiogram severe right atrial enlargement, EF is preserved at 55%, moderate LVH, mild aortic valve calcification but no , mild aortic regurgitation, moderate mitral annular calcification, mild tricuspid regurgitation. Nuclear stress test is negative for ischemia. IMPRESSION: 1. Nonsustained ventricular tachycardia. 2. Near syncope, probably secondary to orthostatic hypotension. 3. Tachybrady syndrome, history of a permanent pacemaker initially in 2005 with generator change in 2012. 4. Preserved ejection fraction. 5. Persistent atrial fibrillation. 6. Chronic kidney disease stage III. 7. Hyperlipidemia. 8. Hypertension. PLAN: I agree with amiodarone due to the nonsustained VT, check thyroid level. His LFTs were already intact. No further electrophysiology testing at this time. We did reprogram the pacemaker to allow for saving more ventricular arrhythmias with anything over 140 beats per minute. MTDD
== END 2016-10-15 14:13 | disposition home or self-care (01) | DRG 310 ==
LOC: ENRESERVDT → ENRESERVTM → C.EDB 12:44 → C.MED 18:52 → C.2T 10-14 16:51 → OBSVTOIN 10-14 19:13
PROVIDERS: ADMIT Internal Medicine; ATTEND Family Medicine
DX: I48.1 Persistent atrial fibrillation (principal); I47.2 Ventricular tachycardia; Z95.0 Presence of cardiac pacemaker; N18.3 Chronic kidney disease, stage 3 (moderate); Z79.01 Long term (current) use of anticoagulants; E78.5 Hyperlipidemia, unspecified; Z90.49 Acquired absence of other specified parts of digestive tract; Z80.9 Family history of malignant neoplasm, unspecified; Z82.49 Family history of ischemic heart disease and other diseases of the circulatory system; Z91.018 Allergy to other foods; Z91.013 Allergy to seafood; Z88.0 Allergy status to penicillin; Z79.82 Long term (current) use of aspirin; Z79.899 Other long term (current) drug therapy; D50.9 Iron deficiency anemia, unspecified; I12.9 Hypertensive chronic kidney disease with stage 1 through stage 4 chronic kidney disease, or unspecified chronic kidney disease

== ENCOUNTER 2019-04-10 02:30 | Inpatient (IN) ==
[2019-04-10 03:47] LABS: Basophils # (auto) 0.01 K/uL (0-0.2); Basophils % (auto) 0.1 %; Hematocrit (blood only) 44.1 % (42-52); Hemoglobin 14.8 g/dL (14.0-18.0); Immature Granulocytes # (auto) 0.04 K/uL (0.00-0.02); Immature Granulocytes % (auto) 0.2 %; Lymphocytes # (auto) 0.77 K/uL (1.2-3.4); Lymphocytes % (auto) 4.7 %; Mean Corpuscular Hemoglobin 30.3 pg (25-34); Mean Corpuscular Hgb Conc 33.6 g/dL (32-36); Mean Corpuscular Volume 90.4 fL (80-100); Mean Platelet Volume 11.7 fL (7.4-10.4); Monocytes # (auto) 1.01 K/uL (0.11-0.59); Monocytes % (auto) 6.2 %; Neutrophils # (auto) 14.39 K/uL (1.4-6.5); Neutrophils % (auto) 88.8 %; Platelet Count 182 K/uL (130-400); RDW Coefficient of Variation 14.3 % (11.5-14.5); Red Blood Count 4.88 M/uL (4.7-6.1); White Blood Count 16.22 K/uL (4.8-10.8)
[2019-04-10 03:56] LABS: INR 2.5 (0.9-1.1); Partial Thromboplastin Ratio 1.3; Partial Thromboplastin Time 35.1 Seconds (21.0-31.0)
[2019-04-10 04:07] LABS: Alanine Aminotransferase 36 U/L (12-78); Albumin Level 3.8 gm/dl (3.4-5.0); Aspartate Aminotransferase 31 U/L (15-37); BUN Creatinine Ratio 20.8 (10-20); Blood Urea Nitrogen 26 mg/dl (7-18); Calcium 8.7 mg/dl (8.5-10.1); Carbon Dioxide 24 mmol/L (21-32); Chloride 102 mmol/L (98-107); Creatinine Clr Calc Pharmacy 49.9 ml/min; Est GFR (African American) 59.6; Est GFR (Non-African American) 51.4; Glucose 142 mg/dl (70-99); Potassium 4.3 mmol/L (3.5-5.1); Sodium 135 mmol/L (136-145)
[2019-04-10 04:12] LABS: Alkaline Phosphatase 96 U/L (45-117); Globulin 3.8 gm/dl (2.5-4.0); NT Pro B Type Natriuretic Pept 3404 pg/ml (0-1800); Total Protein 7.6 gm/dl (6.4-8.2); Troponin I < 0.015 ng/ml (0-0.045)
[2019-04-10] MEDS ORDERED: FUROSEMIDE 20 MG in SYRINGE 0 ML IV ONE (04:12)
[2019-04-10] MEDS ORDERED: FUROSEMIDE 40 MG/4 ML VIAL IV ONE (04:16)
--- NOTE | 2019-04-10 04:49 | Emergency Department Note ---
Entered by Marla Dykes acting as a scribe for History of Present Illness General Chief complaint: Shortness of Breath/Dyspnea Stated complaint: TROUBLE BREATHING,COUGH,FATIGUE Time Seen by Provider: 04/10/19 02:46 Source: patient and family () History of Present Illness Onset (ago): hour(s) (several) Location: chest Pain Consistency: + other (worsening ) Maximum Pain Intensity: 0 Quality: + other (shortness of breath) Relieved By: + other (oxygen) Associated symptoms: + chest pain (with coughing), + cough and + other (negative abdominal pain; positive cold symptoms ) The patient is a 88 year old male who presents to the Emergency Room with complaints of worsening shortness of breath that began several hours prior to arrival. The patient reports that he woke up two days ago with cold symptoms, and states that yesterday he began to cough and this cough became worse as the day went on. The patient reports some chest pain while coughing. He denies abdominal pain. The patient states that his symptoms are relieved with oxygen. The patient states that he has swelling in his legs at baseline, and states that he is on 10mg of Lasix every other day. The patient denies using an inhaler recently. Per the patient's son, the patient had pneumonia about one year ago. Home Medications Home Medications Medication Instructions Recorded Confirmed Type Calcium 600 + D(3) 1 tab PO DAILY 04/15/18 04/10/19 History Centrum Silver 1 tab PO DAILY 04/15/18 04/10/19 History amiodarone 200 mg PO DAILY 04/15/18 04/10/19 History ascorbic acid (vitamin C) [Vitamin 500 mg PO DAILY 04/15/18 04/10/19 History C] aspirin [Aspir-81] 81 mg PO DAILY 04/15/18 04/10/19 History cholecalciferol (vitamin D3) 1,000 unit PO DAILY 04/15/18 04/10/19 History [Vitamin D3] simvastatin 10 mg PO PM 04/15/18 04/10/19 History acetaminophen [Tylenol Extra 500 mg PO DIRECTED PRN 05/04/18 04/10/19 History Strength] metoprolol tartrate 50 mg PO QPM 05/04/18 04/10/19 History metoprolol tartrate 75 mg PO QAM 05/04/18 04/10/19 History amlodipine 2.5 mg PO DAILY 04/10/19 04/10/19 History furosemide [Lasix] 10 mg PO Q OTHER DAY 04/10/19 04/10/19 History [id number]-[id number]-ast 1 cap PO DAILY 04/10/19 04/10/19 History [MegaRed [place]-3 Krill Oil] sennosides [senna] 8.6 mg PO Q OTHER DAY 04/10/19 04/10/19 History warfarin 1.25 mg PO WK 04/10/19 04/10/19 History warfarin 2.5 mg PO 6XWK 04/10/19 04/10/19 History Allergies Allergy/AdvReac Type Severity Reaction Status Date / Time coffee (Coffea arabica) Allergy Severe SWELLING Verified 04/10/19 03:20 OF LIPS AND HIVES Penicillins AdvReac Intermediate GIVES Verified 04/10/19 03:20 PATIENT THRUSH meperidine AdvReac Mild LIGHTHEADED Verified 04/10/19 03:20 NESS Past Med/Surg History Medical History Chronic diastolic (congestive) heart failure (Chronic) Atrial fibrillation (Chronic) Hyperlipidemia (Chronic) Generalized weakness (Resolved) SOB (shortness of breath) (Resolved) CKD (chronic kidney disease) stage 3, GFR 30-59 ml/min (Chronic) Tachy-saray syndrome (Chronic) "s/p pacemaker insertion 2005" HTN (hypertension) (Chronic) History of left heart catheterization (Resolved) "1995; no CAD" V tach (Resolved) Surgical History History of cholecystectomy (Resolved) History of appendectomy (Resolved) Family History Other Colon cancer Coronary heart disease Prostate cancer Social History Preferred Language: Spanish Communication Ability: Effective 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 and A total of 10 systems reviewed and were otherwise negative Physical Exam Vital Signs Vital Signs - 24 hr 04/10/19 02:35 04/10/19 03:09 04/10/19 04:18 Temperature 37.0 C Temperature Source Oral Sepsis Recent Fever Within 48 Hours No Sepsis New/Unexplained Change in Mental Status No Sepsis Action Taken by Nursing No Action Required Fraction of Inspired Oxygen - Titration 4 Pulse Oximetry Post Tiitration 90 Pulse Rate 70 Pulse Rate [Apical] 66 65 Pulse Rhythm [Apical] Regular Respiratory Rate 32 H 30 H 22 Respiratory Effort / Characteristics Short of Breath Respiratory Pattern Tachypnea Blood Pressure 183/82 H Blood Pressure [Right Arm] 177/72 H Blood Pressure Mean 115 Blood Pressure Mean [Right Arm] 107 Pulse Oximetry 88 L 90 90 Oxygen Delivery Method Room Air Nasal Cannula Nasal Cannula Oxygen Flow Rate 4 4 HEENT: Head - normocephalic and atraumatic Pupils are equal, round, and reactive to light. Extraocular eye muscles are intact, and sclera are anicteric. Nose - moist nasal mucosa without discharge. Mouth - extremely dry buccal mucosa. O ropharynx is nonerythematous and there is no tonsillar exudate or edema noted. Neck: Supple; no JVD or cervical lymphadenopathy. Heart: Regular rate and rhythm. There is a normal S1 and S2 with no murmurs, clicks, or gallops appreciated. Lungs: Diffuse rales in both lungs with the left greater than the right. Diminished breath sounds at both lung bases. Abdomen: Soft, completely nontender, nondistended, with good bowel sounds. There are no palpable pulsatile masses or hepatosplenomegaly. There is no guarding, rigidity, or rebound noted. Extremities: 2+ pitting edema to the bilateral lower extremities. No evidence of cyanosis or clubbing. There are easily palpable peripheral pulses. Skin: warm and dry with good turgor and no rashes. Course 0249: Past medical records reviewed. The patient was evaluated in room B6. A complete history and physical exam was performed. An IV lock was initiated and labs were drawn as above. A twelve-lead EKG was obtained. The patient was observed on the partner cco and pulse oximeter. He will have a chest x-ray. The patient was hypoxic on room air. He was placed on 4 L of O2 by nasal can nula which brought his oxygen saturation up to 90%. 0417: Ordered Lasix 20 mg IV. 0419: Dr. Gaytan Hospitalist was paged. 0421: I discussed the case with Dr. Gaytan Hospitalist who accepts the patient for further evaluation. Consultations Consultation #1: I discussed the case with Dr. Gaytan Hospitalalo who accepts the patient for further evaluation. Time: 04:21 Administered Medications Discontinued Medications Furosemide (Lasix) Confirm Administered Dose 40 mg IV .STHumanAPI-MED ONE Stop: 04/10/19 04:17 Last Admin: 04/10/19 04:18 Dose: Not Given Documented by: [id number] Furosemide 20 mg/ Syringe 2 mls @ 4 mls/min IV ONE ONE Stop: 04/10/19 04:13 Last Admin: 04/10/19 04:18 Dose: 4 mls/min Documented by: [id number] Medical Decision Making Differential Diagnosis Differential diagnoses include pneumonia, bronchitis, CHF, and others were considered. Medical Records Attestation: I reviewed the patient's medical records. Home Medications Current Medication List: was personally reviewed by me Laboratory Data Attestation: I reviewed the patient's lab results. Result diagrams: 04/10/19 03:32 04/10/19 03:32 Lab Results 04/10/19 04/10/19 04/10/19 Range/Units 03:32 03:32 03:32 WBC 16.22 H (4.8-10.8) K/uL RBC 4.88 (4.7-6.1) M/uL Hgb 14.8 (14.0-18.0) g/dL Hct 44.1 (42-52) % MCV 90.4 (80-100) fL MCH 30.3 (25-34) pg MCHC 33.6 (32-36) g/dL RDW Std Deviation 47.0 H (36.4-46.3) fL RDW Coeff of Klever 14.3 (11.5-14.5) % Plt Count 182 (130-400) K/uL MPV 11.7 H (7.4-10.4) fL Immature Gran % (Auto) 0.2 % Neut % (Auto) 88.8 % Lymph % (Auto) 4.7 % Yell % (Auto) 6.2 % Eos % (Auto) 0.0 % Baso % (Auto) 0.1 % Immature Gran # (Auto) 0.04 H (0.00-0.02) K/uL Neut # (Auto) 14.39 H (1.4-6.5) K/uL Lymph # (Auto) 0.77 L (1.2-3.4) K/uL Yell # (Auto) 1.01 H (0.11-0.59) K/uL Eos # (Auto) 0.00 (0-0.5) K/uL Baso # (Auto) 0.01 (0-0.2) K/uL PT 24.0 H (9.0-12.0) Seconds INR 2.5 H (0.9-1.1) APTT 35.1 H (21.0-31.0) Seconds PTT Ratio 1.3 Sodium 135 L (136-145) mmol/L Potassium 4.3 (3.5-5.1) mmol/L Chloride 102 (98-107) mmol/L Carbon Dioxide 24 (21-32) mmol/L Anion Gap 9.0 (3-11) BUN 26 H (7-18) mg/dl Creatinine 1.25 (0.6-1.4) mg/dl Est Cr Clr Drug Dosing 49.9 ml/min Est GFR ( Amer) 59.6 Est GFR (Non-Af Amer) 51.4 BUN/Creatinine Ratio 20.8 H (10-20) Glucose 142 H (70-99) mg/dl Calcium 8.7 (8.5-10.1) mg/dl Total Bilirubin 1.0 (0.2-1) mg/dl AST 31 (15-37) U/L ALT 36 (12-78) U/L Alkaline Phosphatase 96 (45-117) U/L Troponin I < 0.015 (0-0.045) ng/ml NT-Pro-B Natriuret Pep 3404 H (0-1800) pg/ml Total Protein 7.6 (6.4-8.2) gm/dl Albumin 3.8 (3.4-5.0) gm/dl Globulin 3.8 (2.5-4.0) gm/dl Albumin/Globulin Ratio 1.0 (0.9-2) Imaging Data Attestation: I personally reviewed and interpreted this imaging study as follows: My Impression: 1 VIEW CHEST X-RAY: Cardiomegaly. Implanted pacemaker. Pulmonary edema. No obvious consolidation. ECG Data Attestation: I personally reviewed and interpreted this ECG as follows: Indication: SOB/dyspnea Rate (beats per minute): 61 Rhythm: other (ventricular paced) Findings: no PAC, no PVC, no ST depression, no ST elevation, no acute ischemic change and no ectopy Comparison ECG Date: from (05/04/18) Change: no significant change Blood Pressure Blood Pressure Findings: Elevated blood pressure Blood Pressure Disposition: further management by hospitalist MDM Narrative The patient is a 88 year old male who presents to the Emergency Room with complaints of worsening shortness of breath that began several hours prior to arrival. The patient was hypoxic on room air. He was placed on supplemental oxygen. On physical exam, the patient has bilateral rales and lower extremity pitting edema. He was given 20 mg of IV Lasix. He started to diurese. The patient will require hospitalization and remain on supplemental oxygen. I discussed the case with Dr. Renteria who from the [facility] Hospitalist service. Impression & Plan Hypoxia, CHF (congestive heart failure) Critical Care Time Critical Care Time: Yes Total Critical Care Time: 50 I have personally spent 50 minutes of critical care time in the direct management of this patient. This includes bedside care, interpretation of diagnostic studies, and testing, discussion with consultants, patient, and family members, and other required patient management activities. This 50 minutes is in excess of all separately billable procedures. Discharge Plan Visit Data Chief Complaint: Shortness of Breath/Dyspnea Stated Complaint: TROUBLE BREATHING,COUGH,FATIGUE ED Provider: Giselle Luna Discharge Problem: Hypoxia, CHF (congestive heart failure) Patient Disposition: Being Evaluated by Hospitalist Forms Stand Alone Forms: My [facility] [place] Prescriptions Prescriptions: No Action amiodarone 200 mg Tablet 200 mg PO DAILY RF: 0 simvastatin 10 mg Tablet 10 mg PO PM RF: 0 aspirin [Aspir-81] 81 mg Tablet,Delayed Release (Dr/Ec) 81 mg PO DAILY RF: 0 ascorbic acid (vitamin C) [Vitamin C] 500 mg Tablet 500 mg PO DAILY RF: 0 cholecalciferol (vitamin D3) [Vitamin D3] 1,000 unit Capsule 1,000 unit PO DAILY RF: 0 Centrum Silver 0.4-300-250 mg-mcg-mcg Tablet 1 tab PO DAILY RF: 0 Calcium 600 + D(3) 600 mg calcium- 200 unit Capsule 1 tab PO DAILY RF: 0 metoprolol tartrate 50 mg tablet 50 mg PO QPM RF: 0 metoprolol tartrate 25 mg tablet 75 mg PO QAM RF: 0 acetaminophen [Tylenol Extra Strength] 500 mg Tablet 500 mg PO DIRECTED PRN (Reason: PAIN/FEVER) RF: 0 sennosides [senna] 8.6 mg Tablet 8.6 mg PO Q OTHER DAY RF: 0 warfarin 2.5 mg Tablet 2.5 mg PO 6XWK RF: 0 warfarin 2.5 mg Tablet 1.25 mg PO WK RF: 0 amlodipine 2.5 mg Tablet 2.5 mg PO DAILY RF: 0 furosemide [Lasix] 20 mg Tablet 10 mg PO Q OTHER DAY RF: 0 MegaRed [place]-3 Krill Oil [phone] mg Capsule 1 cap PO DAILY RF: 0 Referrals Referrals: Rambo Castro DO [Primary Care Provider] - Discharge Problem: CHF (congestive heart failure) Qualifiers: Heart failure type: unspecified Heart failure chronicity: acute Qualified C ode(s): I50.9 - Heart failure, unspecified The scribe's documentation has been prepared under my direction and personally reviewed by me in its entirety. I confirm that the note above accurately reflects all work, treatment, procedures, and medical decision making performed by me.
[2019-04-10 05:28] LABS: Appearance Urine Clear (Clear); Bacteria Urine Automated Negative (Negative); Bilirubin Urine Negative (Negative); Blood Urine 2+ (Negative); Cast Urine Automated 0 /lpf (0-5); Color Urine Yellow; Epithelial Cell Urine Auto 0-5 /lpf (0-5); Glucose Urine UA Negative (Negative); Ketones Urine Negative (Negative); Leukocyte Esterase Urine Negative (Negative); Nitrite Urine Negative (Negative); Protein Urine Negative (Negative); Specific Gravity Urine 1.016 (1.000-1.030); Urobilinogen Urine Negative (Negative); WBC Urine Automated 0 /hpf (0-5)
[2019-04-10] MEDS ORDERED: IPRATROPIUM BROMIDE NEB SOLN 0.02% 2.5 ML VIAL INH PRN (05:54)
[2019-04-10] MEDS ORDERED: XOPENEX/ATROVENT 0.63mg/0.5MG NEB COMBO NEB PRN (05:54)
[2019-04-10] MEDS ORDERED: ONDANSETRON INJ 2 MG/ML 2 ML VIAL IV PRN (05:54)
[2019-04-10] MEDS ORDERED: ACETAMINOPHEN 500 MG TAB PO PRN (05:54)
[2019-04-10] MEDS ORDERED: LEVALBUTEROL HCL 0.63 MG/3 ML NEB NEB PRN (05:54)
[2019-04-10] MEDS ORDERED: NITROGLYCERIN SL 0.4 MG/TAB TAB SL PRN (05:54)
[2019-04-10] MEDS ORDERED: ACETAMINOPHEN 325 MG TAB PO PRN (05:54)
[2019-04-10] MEDS ORDERED: POLYETHYLENE (MIRALAX) 17 GM PACK PO PRN (05:54)
[2019-04-10] MEDS: FUROSEMIDE 40 MG in SYRINGE 0 ML IV SCH (06:48)
[2019-04-10] MEDS: DOXYCYCLINE HYCLATE 100 MG CAP PO SCH ×2 (06:48→20:12)
[2019-04-10] MEDS: cefTRIAXone SODIUM 2,000 MG in DEXTROSE 5% 50 ML IV SCH (06:48)
--- NOTE | 2019-04-10 06:52 | XRay Report ---
XR chest 1V portable CLINICAL HISTORY: Dyspnea COMPARISON STUDY: Chest radiograph June 04, 2018. FINDINGS: Pacemaker is noted. There is moderate cardiomegaly. A hiatal hernia is present. There is no pneumothorax or pleural effusion. Interstitial thickening is noted. This has developed since exam of May 04, 2018. IMPRESSION: 1. Mild interstitial pulmonary edema. 2. Moderate cardiomegaly. 3. Hiatal hernia. Electronically signed by: Liban Elizalde M.D. 04/10/2019 6:51 AM
[2019-04-10] MEDS: METOPROLOL TARTRATE 25 MG TAB PO SCH (08:03)
[2019-04-10] MEDS: AMIODARONE 200 MG TAB PO SCH (08:03)
[2019-04-10] MEDS: ASCORBIC ACID 500 MG TAB PO SCH (08:03)
[2019-04-10] MEDS: ASPIRIN 81 MG ECTAB PO SCH (08:03)
[2019-04-10] MEDS: AMLODIPINE BESYLATE 5 MG TAB PO SCH (08:04)
[2019-04-10] MEDS: CALCIUM 600MG + VIT D 400 IU TAB PO SCH (08:04)
[2019-04-10] MEDS: CEROVITE ADV FORMULA TAB PO SCH (08:04)
--- NOTE | 2019-04-10 09:51 | History and Physical Report ---
DATE OF ADMISSION: 04/10/2019 CHIEF COMPLAINT: Shortness of breath. HISTORY OF PRESENT ILLNESS: This is an 88-year-old male with past medical history significant for hyperlipidemia, hx of paroxysmal VT, diastolic CHF, chronic kidney disease stage III, hypertension, tachybrady syndrome, status post pacemaker, mitral valve regurgitation - moderate, chronic atrial fibrillation, GERD, osteoporosis, lumbar degenerative disc disease, who lives with his and son, ambulates with the help of walker, presents with shortness of breath. The patient states since last Wednesday evening, he has been feeling short of breath, it got progressively worse and it has gotten worse today night, so he came to the hospital. He is having dry cough. Denies any fever or chills. Has some chest discomfort when he coughs. No nausea, no vomiting, no abdominal pain, no headaches, no dizziness, no blurred visions. Has some runny nose, no sore throat, no difficulty swallowing, on regular food. No diarrhea or constipation, no black stools or blood in the stools. Normal bladder movements. No hematuria, no burning micturition. Has some swelling in the lower extremities. No rash. Currently on 4 liters, saturating only 87%, but is speaking in full sentences. ALLERGIES: COFFEE, PENICILLINS, MEPERIDINE. PAST MEDICAL HISTORY: As mentioned above. PAST SURGICAL HISTORY: Left heart catheterization, colonoscopy, dual chamber pacemaker placement, replacement of java j2ee lead, laparoscopic cholecystectomy, proctosigmoidoscopy with biopsy, appendectomy. MEDICATIONS: The patient is on Lopressor 50 mg in the a.m. and 75 mg in the p.m., amiodarone 200 mg p.o. daily, Senokot 1 tablet every other day, Coumadin 1.5 mg once daily on Wednesday and Wednesday and 2.5 mg all other days, Lasix 10 mg every other day, Zocor 10 mg p.o. at bedtime, amlodipine 2.5 mg p.o. daily, Krill oil omega 1 tablet daily, calcium plus vitamin D 1 tablet daily, vitamin D 1000 units p.o. daily, aspirin 81 mg p.o. daily, vitamin C 500 mg p.o. daily, Centrum Silver 1 tablet daily. FAMILY HISTORY: Significant for mother had colon cancer. Father had AR. Brother had prostate cancer. Another brother had CABG. Son has Crohn disease. SOCIAL HISTORY: , lives with his and son. No smoking history. No alcohol, no drug use. REVIEW OF SYMPTOMS: As per HPI. Rest of the review of systems is negative. PHYSICAL EXAMINATION: GENERAL: The patient is old and frail, not in acute distress. VITAL SIGNS: Temperature 37, pulse 66, respiratory rate 20s-30s, blood pressure 180/84, oxygen 86%-90% on 4 liters. HEENT: No pallor, no icterus. Pupils equal, round, and reactive to light. NECK: No JVD, no neck masses, no carotid bruits. CARDIOVASCULAR: S1, S2 heard, regular rate and rhythm, no murmur. RESPIRATORY SYSTEM: Normal AP diameter. No accessory muscle use. Bilateral rhonchi heard. Bibasilar crackles. ABDOMEN: Soft, bowel sounds present, nontender. No distention. CENTRAL NERVOUS SYSTEM: Cranial nerves II-XII grossly intact, nonfocal. EXTREMITIES: Left lower extremity pedal edema present, no erythema seen. LABORATORIES DATA: WBC 16.2, hemoglobin 14.8, hematocrit 44.1, platelets 182. PT 24, INR 2.5, APTT 33.1. Sodium 135, potassium 4.3, chloride 102, bicarbonate 24, BUN 26, creatinine 1.25, serum glucose 142, calcium 8.7, total bilirubin 1, AST 31, ALT 36, alkaline phosphatase 96, troponin I less than 0.015. BNP 1400. Urinalysis pending. Chest x-ray shows bilateral congestion. EKG: Ventricular paced rhythm with rate of 61. ASSESSMENT AND PLAN: This is an 88-year-old male who presents with shortness of breath. 1. Shortness of breath, most likely acute on chronic diastolic congestive heart failure, history of moderate mitral regurgitation. A dose of IV Lasix 20 mg given in the Emergency Room, we will give another 40 of IV Lasix and place him on IV Lasix 40 daily. Monitor in the telemetry floor, daily weights, intakes and outputs. Follow echocardiogram. Follow troponin and consult cardiology for further recommendations. 2. Questionable bronchitis and possible pneumonia and leukocytosis. Empirically, we will place him on IV Rocephin and p.o. doxycycline and follow the response. Also, follow cultures. 3. History of atrial fibrillation, tachybrady syndrome, status post pacemaker. On amiodarone, Lopressor and Coumadin. INR is therapeutic. We will monitor PT/INR and monitor his heart rates. 4. History of hypertension. On Lopressor and amlodipine. We will monitor the blood pressure. 5. History of hyperlipidemia, on statin. 6. ZAC? on Chronic kidney disease stage III, creatinine baseline is around 1, presents with creatinine of 1.25. We will follow the laboratories while on iv Lasix. 7. Deep venous thrombosis prophylaxis, on Coumadin. INR is therapeutic. DISPOSITION: Admit to tele floor. Expect to discharge home and follow with family doctor. PT and OT prior to discharge. Social service to help with discharge planning. Level 1, full code. MTDD
--- NOTE | 2019-04-10 11:56 | Cardiology Consultation ---
Date of Consultation April 10, 2019 Assessment & Plan (1) Chronic diastolic (congestive) heart failure: Patient's most recent inpatient echocardiogram had been in March 2018 and revealed an apical wall motion abnormality likely due to underlying right ventricular pacemaker activation. The left ventricular ejection fraction was normal at 60 to 65%. The left atrium was severely dilated. The right atrium was severely dilated. Mild to moderate aortic valve stenosis was present. Mild aortic valve regurgitation was present. Trace mitral regurgitation trace tricuspid regurgitation were present. Outpatient medications include furosemide 20 mg every other day. Agree with his current dose of furosemide 40 mg daily. Continue Coumadin. History of Present Illness Attending Physician: Jania Torres MD History of Present Illness Mr Kevin is an 88 year old male seen in cardiology consultation per the request of Dr Renteria for the evaluation of shortness of breath. The patient's primary landscape drafter is Dr. Rowland of our practice. The patient states that he lives with his spouse and his son. He was in his normal state of health until approximately Wednesday when he started noticing a scratchy throat and runny nose. On Wednesday he decided not to go to [facility] because he felt poorly and by the end of the day he ended up presented to the emergency room. His symptoms are reminiscent of his admission in April 2018 at which time he was treated for both pneumonia as well as acute diastolic heart failure decompensation. The patient is received IV diuretics and Rocephin and thus far feels improved. He is sitting eating his lunchtime meal and feeling well with the exception of a runny nose. Cardiology Problem List: 1. Past paroxysmal, now chronic atrial fibrillation 2. 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 Most recent generator change in 2012 with transition to a single-chamber device functioning in a VVIR mode 3. 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 Hypertension 5. Dyslipidemia 6. History of diastolic heart failure. Allergies Allergy/AdvReac Type Severity Reaction Status Date / Time coffee (Coffea arabica) Allergy Severe SWELLING Verified 04/10/19 03:20 OF LIPS AND HIVES Penicillins AdvReac Intermediate GIVES Verified 04/10/19 03:20 PATIENT THRUSH meperidine AdvReac Mild LIGHTHEADED Verified 04/10/19 03:20 NESS Home Medications Home Medications Medication Instructions Recorded Confirmed Type Calcium 600 + D(3) 1 tab PO DAILY 04/15/18 04/10/19 History Centrum Silver 1 tab PO DAILY 04/15/18 04/10/19 History amiodarone 200 mg PO DAILY 04/15/18 04/10/19 History ascorbic acid (vitamin C) [Vitamin 500 mg PO DAILY 04/15/18 04/10/19 History C] aspirin [Aspir-81] 81 mg PO DAILY 04/15/18 04/10/19 History cholecalciferol (vitamin D3) 1,000 unit PO DAILY 04/15/18 04/10/19 History [Vitamin D3] simvastatin 10 mg PO PM 04/15/18 04/10/19 History acetaminophen [Tylenol Extra 500 mg PO DIRECTED PRN 05/04/18 04/10/19 History Strength] metoprolol tartrate 50 mg PO QPM 05/04/18 04/10/19 History metoprolol tartrate 75 mg PO QAM 05/04/18 04/10/19 History amlodipine 2.5 mg PO DAILY 04/10/19 04/10/19 History furosemide [Lasix] 10 mg PO Q OTHER DAY 04/10/19 04/10/19 History [id number]-[id number]-ast 1 cap PO DAILY 04/10/19 04/10/19 History [MegaRed [place]-3 Krill Oil] sennosides [senna] 8.6 mg PO Q OTHER DAY 04/10/19 04/10/19 History warfarin 1.25 mg PO WK 04/10/19 04/10/19 History warfarin 2.5 mg PO 6XWK 04/10/19 04/10/19 History Patient History Medical History Chronic diastolic (congestive) heart failure (Chronic) Atrial fibrillation (Chronic) Hyperlipidemia (Chronic) Generalized weakness (Resolved) SOB (shortness of breath) (Resolved) CKD (chronic kidney disease) stage 3, GFR 30-59 ml/min (Chronic) Tachy-saray syndrome (Chronic) "s/p pacemaker insertion 2005" HTN (hypertension) (Chronic) History of left heart catheterization (Resolved) "1995; no CAD" V tach (Resolved) Surgical History History of cholecystectomy (Resolved) History of appendectomy (Resolved) Family History Other Colon cancer Coronary heart disease Prostate cancer Social History Preferred Language: Amharic Communication Ability: Effective 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 Beliefs That Will Affect Care: None marital status: Current Living Situation: Spouse current occupational status: retired Other Information That Helps Us Care for You: No Feels Safe at Home: Yes Safety Concerns: Feels Safe At This Time Smoking Status: Never smoker Do You Dip or Chew Tobacco: No ; Second Hand Exposure: No ; Tobacco Cessation Education Requested by Patient: No Hx Alcohol Use: No Hx Substance Use: No Review of Systems Review of Systems: All systems reviewed & are unremarkable except as noted in HPI & below Physical Exam Physical Exam: Temp Pulse Resp BP Pulse Ox 36.9 C 60 18 134/61 92 04/10/19 11:36 04/10/19 11:36 04/10/19 11:36 04/10/19 11:36 04/10/19 11:36 Constitutional: No acute distress, elderly, frail Respiratory: Auscultation: no crackles and no rales Mildly decreased breath sounds bilaterally at the bases Cardiovascular: Rate/Rhythm: regular rhythm Heart Sounds: + murmur (1/6 systolic murmur) Extremities: no edema Gastrointestinal (Abdomen): normal bowel sounds, soft, nontender, no hepatosplenomegaly Neurologic: PERRL, EOMI, accommodation nl, no face palsy, no dysarthria Results & Data Vital Signs (Past 12 Hours) Vital Signs Temp Pulse Pulse Resp BP BP Pulse Ox 04/10/19 11:36 36.9 C 60 18 134/61 92 04/10/19 08:07 36.6 C 65 22 168/66 H 92 04/10/19 05:45 37.2 C 67 20 196/73 H 90 04/10/19 05:33 66 34 H 160/83 H 89 L 04/10/19 05:26 60 32 H 97 04/10/19 05:08 66 35 H 180/84 H 86 L 04/10/19 04:18 65 22 177/72 H 90 04/10/19 03:09 66 30 H 90 04/10/19 02:35 37.0 C 70 32 H 183/82 H 88 L Laboratory Results Cardiac Enzymes INR 2.5 today 04/10/2019 04/10/19 04/10/19 Range/Units 03:32 07:51 AST 31 (15-37) U/L Troponin I < 0.015 0.018 (0-0.045) ng/ml Coagulation 04/10/19 Range/Units 03:32 PT 24.0 H (9.0-12.0) Seconds APTT 35.1 H (21.0-31.0) Seconds CBC 04/10/19 Range/Units 03:32 WBC 16.22 H (4.8-10.8) K/uL RBC 4.88 (4.7-6.1) M/uL Hgb 14.8 (14.0-18.0) g/dL Hct 44.1 (42-52) % Plt Count 182 (130-400) K/uL Neut # (Auto) 14.39 H (1.4-6.5) K/uL Lymph # (Auto) 0.77 L (1.2-3.4) K/uL Treasure # (Auto) 1.01 H (0.11-0.59) K/uL Eos # (Auto) 0.00 (0-0.5) K/uL Baso # (Auto) 0.01 (0-0.2) K/uL Comprehensive Metabolic Panel 04/10/19 Range/Units 03:32 Sodium 135 L (136-145) mmol/L Potassium 4.3 (3.5-5.1) mmol/L Chloride 102 (98-107) mmol/L Carbon Dioxide 24 (21-32) mmol/L BUN 26 H (7-18) mg/dl Creatinine 1.25 (0.6-1.4) mg/dl Glucose 142 H (70-99) mg/dl Calcium 8.7 (8.5-10.1) mg/dl AST 31 (15-37) U/L ALT 36 (12-78) U/L Alkaline Phosphatase 96 (45-117) U/L Total Protein 7.6 (6.4-8.2) gm/dl Albumin 3.8 (3.4-5.0) gm/dl Intake and Output 04/09/19 04/10/19 04/10/19 22:59 06:59 14:59 Intake Total 70 / 70 Output Total 250 / 250 1575 / 1575 Balance -250 / -250 -1505 / -1505 Intake: IV 70 / 70 Rocephin 2,000 mg In D5w 50 ml 70 / 70 @ 140 mls/hr IV Q24H [facility] Rx#: [id number] Output: Urine 250 / 250 1575 / 1575 Other: Weight 93.5 kg Diagnostic Findings EKG performed 04/10/2019 revealed ventricular paced rhythm at 61 bpm
[2019-04-10] MEDS ORDERED: WARFARIN SOD 1.25 MG TAB PO SCH (16:00)
--- NOTE | 2019-04-10 18:45 | Hospitalist Progress Note ---
Date of Service April 10, 2019 Assessment & Plan (1) Acute on chronic diastolic heart failure: Presented with increasing shortness of breath Chest x-ray consistent with CHF Received intravenous Lasix in the emergency room and will be continued Repeat echo did show EF of 60 to 65%, mild valvular heart disease and severe pulmonary hypertension was noted to be new findings Appreciate cardiology input and recommendation He has been feeling a little better since admission Presented with shortness of breath and cough Chest x-ray did not show any pneumonia Noted to have high white count Possible bronchitis Ceftriaxone and doxycycline were added (2) Atrial fibrillation: Noted to have paroxysmal atrial fibrillation in the past Now has chronic defibrillation Heart rate is controlled on oral amiodarone (3) Tachy-saray syndrome: Status post placement (4) CKD (chronic kidney disease) stage 3, GFR 30-59 ml/min: Creatinine remains within normal range (5) Hyperlipidemia: Continues statin DVT prophylaxis Continue with CODE STATUS Full Subjective 04/10 Patient was seen and examined in telemetry unit He was admitted with shortness of breath likely secondary to acute on chronic diastolic heart failure Has been feeling a little bit better since admission Denies any chest pain and/or palpitation and shortness of breath seems to be improved Review of Systems Review of Systems: All systems reviewed and unremarkable except as noted below Constitutional: + weakness Respiratory: + dyspnea (Minimal shortness of breath at rest); no cough Cardiovascular: no chest pain Gastrointestinal: no abdominal pain Neurologic: Generally weak and lethargy Physical Exam Physical Exam: Lying in bed without any acute symptoms Constitutional: well developed and + ill appearing; no acute distress Eyes: PERRL, conjunctivae normal, anicteric sclerae ENMT: external ear and nose normal, oropharynx normal Neck: trachea midline, no thyromegaly Respiratory: normal respiratory effort; no respiratory distress Cardiovascular: Rate/Rhythm: regular rate and regular rhythm Heart Sounds: + murmur Gastrointestinal (Abdomen): Inspection/Auscultation: abdomen normal to inspection and normal bowel sounds Percussion/Palpation: abdomen soft Musculoskeletal: No acute arthritis in any of the joints Lymphatic: no cervical or axillary lymphadenopathy Results & Data Vital Signs (Past 12 Hours) Vital Signs Temp Pulse Resp BP Pulse Ox 04/10/19 15:47 36.9 C 62 20 127/65 91 04/10/19 11:36 36.9 C 60 18 134/61 92 04/10/19 08:07 36.6 C 65 22 168/66 H 92 Laboratory Results Short CBC 04/10/19 Range/Units 03:32 WBC 16.22 H (4.8-10.8) K/uL Hgb 14.8 (14.0-18.0) g/dL Hct 44.1 (42-52) % Plt Count 182 (130-400) K/uL BMP 04/10/19 03:32 Sodium 135 L Potassium 4.3 Chloride 102 Carbon Dioxide 24 BUN 26 H Creatinine 1.25 Glucose 142 H Calcium 8.7 Cardiac Enzymes 04/10/19 04/10/19 04/10/19 Range/Units 03:32 07:51 12:00 Troponin I < 0.015 0.018 0.026 (0-0.045) ng/ml 04/10/19 Range/Units 17:47 Troponin I 0.029 (0-0.045) ng/ml Liver Function 04/10/19 Range/Units 03:32 Total Bilirubin 1.0 (0.2-1) mg/dl AST 31 (15-37) U/L ALT 36 (12-78) U/L Alkaline Phosphatase 96 (45-117) U/L Albumin 3.8 (3.4-5.0) gm/dl Urine 04/10/19 Range/Units 05:05 Urine Color Yellow Urine Appearance Clear (Clear) Urine pH 5.0 (4.5-7.5) Ur Specific Filion 1.016 (1.000-1.030) Urine Protein Negative (Negative) Urine Glucose (UA) Negative (Negative) Medications Administered Current Inpatient Medications Acetaminophen (Tylenol) 650 mg PO Q4H PRN PRN Reason: Pain or Fever Stop: 05/10/19 05:53 Amiodarone HCl (Cordarone) 200 mg PO DAILY [facility] Stop: 05/10/19 08:59 Last Admin: 04/10/19 08:03 Dose: 200 mg Documented by: Amlodipine Besylate (Norvasc) 2.5 mg PO DAILY DAI Stop: 05/10/19 08:59 Last Admin: 04/10/19 08:04 Dose: 2.5 mg Documented by: Ascorbic Acid (Vitamin C) 500 mg PO DAILY [facility] Stop: 05/10/19 08:59 Last Admin: 04/10/19 08:03 Dose: 500 mg Documented by: Aspirin (Ecotrin Ectab) 81 mg PO DAILY [facility] Stop: 05/10/19 08:59 Last Admin: 04/10/19 08:03 Dose: 81 mg Documented by: Doxycycline Hyclate (Vibramycin) 100 mg PO BID@1000,2200 [facility] Stop: 04/17/19 06:29 Last Admin: 04/10/19 06:48 Dose: 100 mg Documented by: Furosemide 40 mg/ Syringe 4 mls @ 4 mls/min IV DAILY DAI Stop: 05/10/19 06:29 Last Admin: 04/10/19 06:48 Dose: 4 mls/min Documented by: Ceftriaxone Sodium 2,000 mg/ (Dextrose) 70 mls @ 140 mls/hr IV Q24H [facility]; Protocol Stop: 04/17/19 05:59 Last Infusion: 04/10/19 07:31 Dose: Infused Documented by: Ipratropium [place] (Atrovent 0.02% 0.5mg/2.5ml) 0.5 mg INH Q4H PRN PRN Reason: SHORTNESS OF BREATH Stop: 05/10/19 05:53 Levalbuterol HCl (Xopenex 0.63 Mg/3 Ml Neb) 0.63 mg NEB Q4H PRN PRN Reason: SHORTNESS OF BREATH Stop: 05/10/19 05:53 Metoprolol Tartrate (Lopressor) 50 mg PO QPM [facility] Stop: 05/10/19 20:59 Metoprolol Tartrate (Lopressor) 75 mg PO QAM [facility] Stop: 05/10/19 08:59 Last Admin: 04/10/19 08:03 Dose: 75 mg Documented by: Multivitamins/Minerals (Multivitamin W/ Minerals Tab) 1 tab PO DAILY [facility] Stop: 05/10/19 08:59 Last Admin: 04/10/19 08:04 Dose: 1 tab Documented by: Multivitamins/Minerals (Caltrate Plus) 1 tab PO DAILY [facility] Stop: 05/10/19 08:59 Last Admin: 04/10/19 08:04 Dose: 1 tab Documented by: Nitroglycerin (Nitrostat) 0.4 mg SL UD PRN PRN Reason: Chest Pain Stop: 05/10/19 05:53 Ondansetron HCl (Zofran) 4 mg IV Q6H PRN PRN Reason: Nausea Stop: 05/10/19 05:53 Polyethylene Glycol (Miralax Powder Packet) 17 gm PO DAILY PRN PRN Reason: Constipation Stop: 05/10/19 05:53 Sennosides (Senokot) 8.6 mg PO Q2D@0900 [facility] Stop: 05/11/19 08:59 Simvastatin (Zocor) 10 mg PO PM [facility] Stop: 05/10/19 20:59 Warfarin Sodium (Coumadin) 1.25 mg PO Mo@1600 [facility] Stop: 05/10/19 15:59 Last Admin: 04/10/19 15:21 Dose: 1.25 mg Documented by: Warfarin Sodium (Coumadin) 2.5 mg PO SuTuWeThFrSa@1600 [facility] Stop: 05/11/19 15:59
[2019-04-10] MEDS: METOPROLOL TARTRATE 50 MG TAB PO SCH (20:12)
[2019-04-10] MEDS: SIMVASTATIN 10 MG TAB PO SCH (20:13)
[2019-04-11 05:52] LABS: Basophils # (auto) 0.01 K/uL (0-0.2); Basophils % (auto) 0.1 %; Hematocrit (blood only) 39.4 % (42-52); Hemoglobin 13.4 g/dL (14.0-18.0); Immature Granulocytes # (auto) 0.03 K/uL (0.00-0.02); Immature Granulocytes % (auto) 0.3 %; Lymphocytes # (auto) 0.44 K/uL (1.2-3.4); Lymphocytes % (auto) 4.3 %; Mean Corpuscular Hemoglobin 30.6 pg (25-34); Mean Platelet Volume 11.5 fL (7.4-10.4); Monocytes # (auto) 1.33 K/uL (0.11-0.59); Monocytes % (auto) 13.1 %; Neutrophils # (auto) 8.25 K/uL (1.4-6.5); Neutrophils % (auto) 81.2 %; Platelet Count 143 K/uL (130-400); RDW Coefficient of Variation 14.4 % (11.5-14.5); RDW Standard Deviation 47.3 fL (36.4-46.3); Red Blood Count 4.38 M/uL (4.7-6.1); White Blood Count 10.16 K/uL (4.8-10.8)
[2019-04-11 06:09] LABS: INR 2.4 (0.9-1.1)
[2019-04-11] MEDS: cefTRIAXone SODIUM 2,000 MG in DEXTROSE 5% 50 ML IV SCH (06:16)
[2019-04-11 06:19] LABS: BUN Creatinine Ratio 24.2 (10-20); Calcium 8.1 mg/dl (8.5-10.1); Creatinine Clr Calc Pharmacy 53.3 ml/min; Est GFR (African American) 65.3; Est GFR (Non-African American) 56.3; Magnesium 1.9 mg/dl (1.8-2.4); Potassium 3.9 mmol/L (3.5-5.1)
[2019-04-11] MEDS: SENNA 8.6 MG TAB PO SCH (08:19)
[2019-04-11] MEDS: AMLODIPINE BESYLATE 5 MG TAB PO SCH (08:20)
[2019-04-11] MEDS: CEROVITE ADV FORMULA TAB PO SCH (08:20)
[2019-04-11] MEDS: METOPROLOL TARTRATE 25 MG TAB PO SCH (08:20)
[2019-04-11] MEDS: AMIODARONE 200 MG TAB PO SCH (08:20)
[2019-04-11] MEDS: ASCORBIC ACID 500 MG TAB PO SCH (08:20)
[2019-04-11] MEDS: ASPIRIN 81 MG ECTAB PO SCH (08:20)
[2019-04-11] MEDS: CALCIUM 600MG + VIT D 400 IU TAB PO SCH (08:20)
[2019-04-11] MEDS: FUROSEMIDE 40 MG in SYRINGE 0 ML IV SCH (10:06)
[2019-04-11] MEDS: DOXYCYCLINE HYCLATE 100 MG CAP PO SCH ×2 (10:08→21:21)
--- NOTE | 2019-04-11 13:36 | Cardiology Progress Note ---
Date of Service April 11, 2019 Assessment & Plan (1) Acute on chronic diastolic heart failure: Continue current dose of IV furosemide, 40 mg daily. Agree with covering with antibiotics for bronchitis as well. (2) Atrial fibrillation: INR is with therapeutic range. Patient is ventricular paced. Disposition: Patient was actually scheduled to have an appointment with Dr. Rowland on 04/13/2019. We are going to actually switch this to his spouse will take that appointment, and the patient will enter utilize Mrs Kevin's scheduled appointment on 04/19/2019 which will serve as a post hospital follow-up appointment. Reschedule department at the office is working on making this change. Subjective Chief complaint: Follow-up shortness of breath Subjective: Patient feeling improved. 2.3 L of urine output noted yesterday, lost 1.5 L. Blood pressure remained stable. Review of Systems Review of Systems: All systems reviewed & are unremarkable except as noted in HPI & below Physical Exam Physical Exam: Temp Pulse Resp BP Pulse Ox 36.5 C 62 20 127/63 90 04/11/19 11:16 04/11/19 11:16 04/11/19 11:16 04/11/19 11:16 04/11/19 11:16 Respiratory: normal respiratory effort, lungs clear to auscultation Cardiovascular: Rate/Rhythm: regular rhythm Heart Sounds: + murmur (1/6 murmur) Vessels: no JVD Extremities: no edema Gastrointestinal (Abdomen): normal bowel sounds, soft, nontender, no hepatosplenomegaly Neurologic: PERRL, EOMI, accommodation nl, no face palsy, no dysarthria Results & Data Vital Signs (Past 12 Hours) Vital Signs Temp Pulse Pulse Resp BP Pulse Ox 04/11/19 11:16 36.5 C 62 20 127/63 90 04/11/19 07:48 36.7 C 68 18 151/73 H 94 04/11/19 03:00 36.3 C L 62 18 119/64 93
--- NOTE | 2019-04-11 16:33 | Hospitalist Progress Note ---
Date of Service April 11, 2019 Assessment & Plan (1) Acute on chronic diastolic heart failure: Presented with increasing shortness of breath Chest x-ray consistent with CHF Received intravenous Lasix in the emergency room and will be continued Repeat echo did show EF of 60 to 65%, mild valvular heart disease and severe pulmonary hypertension was noted to be new findings Appreciate cardiology input and recommendation He has been feeling a little better since admission Continue with current diuretics dose Clinically much better We will get PT and OT evaluation As outpatient cardiology follow-up appointment already Presented with shortness of breath and cough Chest x-ray did not show any pneumonia Noted to have high white count Possible bronchitis Ceftriaxone and doxycycline were added We will continue with oral doxycycline to complete 7 to 10 days of antibiotic (2) Atrial fibrillation: Noted to have paroxysmal atrial fibrillation in the past Now has chronic defibrillation Heart rate is controlled on oral amiodarone (3) Tachy-saray syndrome: Status post pacemaker placement (4) CKD (chronic kidney disease) stage 3, GFR 30-59 ml/min: Creatinine remains within normal range (5) Hyperlipidemia: Continues statin DVT prophylaxis Continue with CODE STATUS Full Discussed with the patient and the Will get PT and OT evaluation Likely discharge tomorrow Subjective 04/10 Patient was seen and examined in telemetry unit He was admitted with shortness of breath likely secondary to acute on chronic diastolic heart failure Has been feeling a little bit better since admission Denies any chest pain and/or palpitation and shortness of breath seems to be im proved 04/11 Patient was seen and examined in telemetry unit He has been feeling little better Still complains of cough without any phlegm Shortness of breath is improved and denies any chest pain and/or palpitation Review of Systems Review of Systems: All systems reviewed and unremarkable except as noted below Constitutional: + weakness Respiratory: + dyspnea (Minimal shortness of breath at rest); no cough Neurologic: Generally weak and lethargy Physical Exam Physical Exam: No apparent distress at rest Constitutional: well developed and + ill appearing; no acute distress Eyes: PERRL, conjunctivae normal, anicteric sclerae ENMT: external ear and nose normal, oropharynx normal Neck: trachea midline, no thyromegaly Respiratory: normal respiratory effort; no respiratory distress Cardiovascular: Rate/Rhythm: regular rate and regular rhythm Heart Sounds: + murmur Extremities: no edema Gastrointestinal (Abdomen): Inspection/Auscultation: abdomen normal to inspection and normal bowel sounds Percussion/Palpation: abdomen soft Musculoskeletal: Denies any acute arthritis in any joints Neurologic: Alert, awake and oriented x3. Generally weak without any focal neuro deficit Lymphatic: no cervical or axillary lymphadenopathy Results & Data Vital Signs (Past 12 Hours) Vital Signs Temp Pulse Resp BP Pulse Ox Pulse Ox Pulse Ox 04/11/19 16:01 36.8 C 60 18 129/57 L 93 04/11/19 13:40 93 94 04/11/19 11:16 36.5 C 62 20 127/63 90 04/11/19 07:48 36.7 C 68 18 151/73 H 94 Pulse Ox 04/11/19 16:01 04/11/19 13:40 88 L 04/11/19 11:16 04/11/19 07:48 Laboratory Results Short CBC 04/11/19 Range/Units 05:23 WBC 10.16 (4.8-10.8) K/uL Hgb 13.4 L (14.0-18.0) g/dL Hct 39.4 L (42-52) % Plt Count 143 (130-400) K/uL BMP 04/11/19 05:23 Sodium 133 L Potassium 3.9 Chloride 100 Carbon Dioxide 28 BUN 28 H Creatinine 1.16 Glucose 99 Calcium 8.1 L Cardiac Enzymes 04/10/19 Range/Units 17:47 Troponin I 0.029 (0-0.045) ng/ml Medications Administered Current Inpatient Medications Acetaminophen (Tylenol) 650 mg PO Q4H PRN PRN Reason: Pain or Fever Stop: 05/10/19 05:53 Amiodarone HCl (Cordarone) 200 mg PO DAILY [facility] Stop: 05/10/19 08:59 Last Admin: 04/11/19 08:20 Dose: 200 mg Documented by: Amlodipine Besylate (Norvasc) 2.5 mg PO DAILY [facility] Stop: 05/10/19 08:59 Last Admin: 04/11/19 08:20 Dose: 2.5 mg Documented by: Ascorbic Acid (Vitamin C) 500 mg PO DAILY [facility] Stop: 05/10/19 08:59 Last Admin: 04/11/19 08:20 Dose: 500 mg Documented by: Aspirin (Ecotrin Ectab) 81 mg PO DAILY [facility] Stop: 05/10/19 08:59 Last Admin: 04/11/19 08:20 Dose: 81 mg Documented by: Doxycycline Hyclate (Vibramycin) 100 mg PO BID@1000,2200 [facility] Stop: 04/17/19 06:29 Last Admin: 04/11/19 10:08 Dose: 100 mg Documented by: Furosemide 40 mg/ Syringe 4 mls @ 4 mls/min IV DAILY [facility] Stop: 05/10/19 06:29 Last Admin: 04/11/19 10:06 Dose: 4 mls/min Documented by: Ceftriaxone Sodium 2,000 mg/ (Dextrose) 70 mls @ 140 mls/hr IV Q24H [facility]; Protocol Stop: 04/17/19 05:59 Last Infusion: 04/11/19 07:50 Dose: Infused Documented by: Ipratropium [place] (Atrovent 0.02% 0.5mg/2.5ml) 0.5 mg INH Q4H PRN PRN Reason: SHORTNESS OF BREATH Stop: 05/10/19 05:53 Levalbuterol HCl (Xopenex 0.63 Mg/3 Ml Neb) 0.63 mg NEB Q4H PRN PRN Reason: SHORTNESS OF BREATH Stop: 05/10/19 05:53 Metoprolol Tartrate (Lopressor) 50 mg PO QPM [facility] Stop: 05/10/19 20:59 Last Admin: 04/10/19 20:12 Dose: 50 mg Documented by: Metoprolol Tartrate (Lopressor) 75 mg PO QAM [facility] Stop: 05/10/19 08:59 Last Admin: 04/11/19 08:20 Dose: 75 mg Documented by: Multivitamins/Minerals (Multivitamin W/ Minerals Tab) 1 tab PO DAILY [facility] Stop: 05/10/19 08:59 Last Admin: 04/11/19 08:20 Dose: 1 tab Documented by: Multivitamins/Minerals (Caltrate Plus) 1 tab PO DAILY [facility] Stop: 05/10/19 08:59 Last Admin: 04/11/19 08:20 Dose: 1 tab Documented by: Nitroglycerin (Nitrostat) 0.4 mg SL UD PRN PRN Reason: Chest Pain Stop: 05/10/19 05:53 Ondansetron HCl (Zofran) 4 mg IV Q6H PRN PRN Reason: Nausea Stop: 05/10/19 05:53 Polyethylene Glycol (Miralax Powder Packet) 17 gm PO DAILY PRN PRN Reason: Constipation Stop: 05/10/19 05:53 Sennosides (Senokot) 8.6 mg PO Q2D@0900 [facility] Stop: 05/11/19 08:59 Last Admin: 04/11/19 08:19 Dose: 8.6 mg Documented by: Simvastatin (Zocor) 10 mg PO PM [facility] Stop: 05/10/19 20:59 Last Admin: 04/10/19 20:13 Dose: 10 mg Documented by: Warfarin Sodium (Coumadin) 1.25 mg PO Mo@1600 [facility] Stop: 05/10/19 15:59 Last Admin: 04/10/19 15:21 Dose: 1.25 mg Documented by: Warfarin Sodium (Coumadin) 2.5 mg PO SuTuWeThFrSa@1600 [facility] Stop: 05/11/19 15:59
[2019-04-11] MEDS: WARFARIN SOD 2.5 MG TAB PO SCH (17:03)
[2019-04-11] MEDS: SIMVASTATIN 10 MG TAB PO SCH (21:22)
[2019-04-11] MEDS: METOPROLOL TARTRATE 50 MG TAB PO SCH (21:22)
[2019-04-12 06:49] LABS: Prothrombin Time 19.3 Seconds (9.0-12.0)
[2019-04-12 07:18] LABS: BUN Creatinine Ratio 22.2 (10-20); Calcium 8.2 mg/dl (8.5-10.1); Creatinine Clr Calc Pharmacy 53.4 ml/min; Est GFR (Non-African American) 62.1; Potassium 3.8 mmol/L (3.5-5.1)
[2019-04-12] MEDS: CEROVITE ADV FORMULA TAB PO SCH (08:22)
[2019-04-12] MEDS: METOPROLOL TARTRATE 25 MG TAB PO SCH (08:22)
[2019-04-12] MEDS: AMLODIPINE BESYLATE 5 MG TAB PO SCH (08:22)
[2019-04-12] MEDS: ASCORBIC ACID 500 MG TAB PO SCH (08:23)
[2019-04-12] MEDS: CALCIUM 600MG + VIT D 400 IU TAB PO SCH (08:23)
[2019-04-12] MEDS: AMIODARONE 200 MG TAB PO SCH (08:24)
[2019-04-12] MEDS: ASPIRIN 81 MG ECTAB PO SCH (08:24)
[2019-04-12] MEDS: FUROSEMIDE 40 MG in SYRINGE 0 ML IV SCH (08:24)
[2019-04-12] MEDS: DOXYCYCLINE HYCLATE 100 MG CAP PO SCH ×2 (10:54→20:49)
--- NOTE | 2019-04-12 16:28 | Hospitalist Progress Note ---
Date of Service April 12, 2019 Assessment & Plan (1) Acute on chronic diastolic heart failure: Presented with increasing shortness of breath Chest x showed mild interstitial pulmonary edema. Echo did showed EF of 60 to 65%, mild valvular heart disease and severe pulmonary hypertension was noted to be new findings cardiology on board Case discussed with cardiology recommended to discharge on lasix 20mg daily (previous dose was 20mg x 3days/week Continue to require oxygen supplement Will change lasix to oral in am Clinically much better Will get a 2 step tomorrow if continue to require oxygen Follow up with cardiology on 04/19/19 Presented with shortness of breath and cough Chest x-ray did not show any pneumonia Noted to have high white count Possible bronchitis Ceftriaxone and doxycycline were added We will continue with oral doxycycline to complete 7 to 10 days of antibiotic (2) Atrial fibrillation: Noted to have paroxysmal atrial fibrillation in the past Now has chronic defibrillation Heart rate is controlled on oral amiodarone Continue coumadin (3) Tachy-saray syndrome: Status post pacemaker placement (4) CKD (chronic kidney disease) stage 3, GFR 30-59 ml/min: Creatinine remains within normal range (5) Hyperlipidemia: Continues statin DVT prophylaxis Continue with CODE STATUS Full Disposition Will discharge home tomorrow Subjective Pt was seen and examined Lying in bed with no distress Pt said that he feels much better He continues requiring oxygen supplement Denies any chest pain, palpitation, dizziness and SOB Physical Exam Physical Exam: General- No acute distress Head- atraumatic Eyes- PERRL, EOMI, ENT- oropharynx clear Neck- supple, no JVD Lungs- Coarse BS Heart- regular rhythm; +murmur Abdomen- normal bowel sounds, soft, nontender Extremities- no calf tenderness Neuro- alert, oriented x 3; PERRL, EOMI; no facial palsy; no dysarthria Skin- warm & dry Results & Data Vital Signs (Past 12 Hours) Vital Signs Temp Pulse Resp BP Pulse Ox Pulse Ox 04/12/19 16:01 36.5 C 74 19 137/62 91 04/12/19 12:00 36.6 C 61 19 127/64 91 04/12/19 07:47 36.9 C 62 18 167/77 H 91 04/12/19 05:00 94
[2019-04-12] MEDS: WARFARIN SOD 2.5 MG TAB PO SCH (16:31)
[2019-04-12] MEDS: METOPROLOL TARTRATE 50 MG TAB PO SCH (20:48)
[2019-04-12] MEDS: SIMVASTATIN 10 MG TAB PO SCH (20:49)
[2019-04-13 06:42] LABS: INR 2.1 (0.9-1.1); Prothrombin Time 20.2 Seconds (9.0-12.0)
[2019-04-13] MEDS: AMLODIPINE BESYLATE 5 MG TAB PO SCH (09:23)
[2019-04-13] MEDS: ASPIRIN 81 MG ECTAB PO SCH (09:23)
[2019-04-13] MEDS: DOXYCYCLINE HYCLATE 100 MG CAP PO SCH (09:23)
[2019-04-13] MEDS: CALCIUM 600MG + VIT D 400 IU TAB PO SCH (09:23)
[2019-04-13] MEDS: FUROSEMIDE 40 MG in SYRINGE 0 ML IV SCH (09:23)
[2019-04-13] MEDS: AMIODARONE 200 MG TAB PO SCH (09:24)
[2019-04-13] MEDS: SENNA 8.6 MG TAB PO SCH (09:24)
[2019-04-13] MEDS: METOPROLOL TARTRATE 25 MG TAB PO SCH (09:24)
[2019-04-13] MEDS: ASCORBIC ACID 500 MG TAB PO SCH (09:24)
[2019-04-13] MEDS: CEROVITE ADV FORMULA TAB PO SCH (09:24)
[2019-04-13] MEDS ORDERED: predniSONE 20 MG TAB PO SCH (14:00)
--- NOTE | 2019-04-13 15:22 | Hospitalist Progress Note ---
Date of Service April 13, 2019 Assessment & Plan (1) Acute on chronic diastolic heart failure: Presented with increasing shortness of breath Chest x showed mild interstitial pulmonary edema. Echo did showed EF of 60 to 65%, mild valvular heart disease and severe pulmonary hypertension was noted to be new findings cardiology on board Case discussed with cardiology recommended to discharge on lasix 20mg daily (previous dose was 20mg x 3days/week) 2 step exercise done today and pt does not require any oxygen supplement Has been saturated well on RA Follow up with cardiology on 04/19/19 Clinically improves significantly Bronchitis Presented with shortness of breath and cough Chest x-ray did not show any pneumonia Noted to have high white count Ceftriaxone and doxycycline were added We will continue with oral doxycycline to complete 7 to 10 days of antibiotic (2) Atrial fibrillation: Noted to have paroxysmal atrial fibrillation in the past Now has chronic defibrillation Heart rate is controlled on oral amiodarone Continue coumadin, INR 2.1 today Follow up with the coag clinic (3) Tachy-saray syndrome: Status post pacemaker placement (4) CKD (chronic kidney disease) stage 3, GFR 30-59 ml/min: Creatinine remains within normal range (5) Hyperlipidemia: Continues statin DVT prophylaxis Continue with CODE STATUS Full Disposition Will discharge home today Follow up with Dr. Cuellar on 04/17 @ 10:05 AM Follow up with cardiology on 04/19/19 Subjective Pt was seen and examined Lying in bed with no distress Pt said that his breathing is much better He has been on RA and feeling fine Denies any chest pain palpitation, dizziness and SOB Physical Exam Physical Exam: General- No acute distress Head- atraumatic Eyes- PERRL, EOMI, ENT- oropharynx clear Neck- supple, no JVD Lungs- diminished BS Heart- regular rhythm; +murmur Abdomen- normal bowel sounds, soft, nontender Extremities- no calf tenderness Neuro- alert, oriented x 3; PERRL, EOMI; no facial palsy; no dysarthria Skin- warm & dry Results & Data Vital Signs (Past 12 Hours) Vital Signs Temp Pulse Pulse Pulse Pulse Pulse Resp 04/13/19 15:00 36.7 C 62 65 18 04/13/19 14:16 76 92 H 61 04/13/19 11:18 36.7 C 65 18 04/13/19 07:15 36.5 C 67 18 04/13/19 03:45 36.7 C 61 20 Resp Resp Resp BP BP Pulse Ox Pulse Ox 04/13/19 15:00 156/76 H 145/64 H 93 04/13/19 14:16 20 20 18 94 04/13/19 11:18 156/76 H 93 04/13/19 07:15 156/64 H 91 04/13/19 03:45 145/64 H 95 Pulse Ox Pulse Ox 04/13/19 15:00 04/13/19 14:16 95 96 04/13/19 11:18 04/13/19 07:15 04/13/19 03:45
--- NOTE | 2019-04-14 08:45 | Discharge Summary ---
Date of Service April 13, 2019 Admission HPI Per Admitting Provider CHIEF COMPLAINT: Shortness of breath. HISTORY OF PRESENT ILLNESS: This is an 88-year-old male with past medical history significant for hyperlipidemia, hx of paroxysmal VT, diastolic CHF, chronic kidney disease stage III, hypertension, tachybrady syndrome, status post pacemaker, mitral valve regurgitation - moderate, chronic atrial fibrillation, GERD, osteoporosis, lumbar degenerative disc disease, who lives with his and son, ambulates with the help of walker, presents with shortness of breath. The patient states since last Wednesday evening, he has been feeling short of breath, it got progressively worse and it has gotten worse today night, so he came to the hospital. He is having dry cough. Denies any fever or chills. Has some chest discomfort when he coughs. No nausea, no vomiting, no abdominal pain, no headaches, no dizziness, no blurred visions. Has some runny nose, no sore throat, no difficulty swallowing, on regular food. No diarrhea or constipation, no black stools or blood in the stools. Normal bladder movements. No hematuria, no burning micturition. Has some swelling in the lower extremities. No rash. Currently on 4 liters, saturating only 87%, but is speaking in full sentences. Admission Exam Per Admitting Provider GENERAL: The patient is old and frail, not in acute distress. VITAL SIGNS: Temperature 37, pulse 66, respiratory rate 20s-30s, blood pressure 180/84, oxygen 86%-90% on 4 liters. HEENT: No pallor, no icterus. Pupils equal, round, and reactive to light. NECK: No JVD, no neck masses, no carotid bruits. CARDIOVASCULAR: S1, S2 heard, regular rate and rhythm, no murmur. RESPIRATORY SYSTEM: Normal AP diameter. No accessory muscle use. Bilateral rhonchi heard. Bibasilar crackles. ABDOMEN: Soft, bowel sounds present, nontender. No distention. CENTRAL NERVOUS SYSTEM: Cranial nerves II-XII grossly intact, nonfocal. EXTREMITIES: Left lower extremity pedal edema present, no erythema seen. Principal Diagnosis Acute on chronic diastolic heart failure Bronchitis Atrial fibrillation Tachy-saray syndrome CKD (chronic kidney disease) stage 3 Dyslipidemia Discharge Exam General- No acute distress Head- atraumatic Eyes- PERRL, EOMI, ENT- oropharynx clear Neck- supple, no JVD Lungs- diminished BS Heart- regular rhythm; +murmur Abdomen- normal bowel sounds, soft, nontender Extremities- no calf tenderness Neuro- alert, oriented x 3; PERRL, EOMI; no facial palsy; no dysarthria Skin- warm & dry Discharge Data Allergies Allergy/AdvReac Type Severity Reaction Status Date / Time coffee (Coffea arabica) Allergy Severe SWELLING Verified 04/10/19 03:20 OF LIPS AND HIVES Penicillins AdvReac Intermediate GIVES Verified 04/10/19 03:20 PATIENT THRUSH meperidine AdvReac Mild LIGHTHEADED Verified 04/10/19 03:20 NESS Consultations 04/10/19 04:18 ED Decision to Admit Stat 04/10/19 05:54 Consult Case Management - Discharge Planning Routine 04/10/19 08:00 Consult Cardiology Routine Ordered Studies XR chest 1V portable CLINICAL HISTORY: Dyspnea COMPARISON STUDY: Chest radiograph June 04, 2018. FINDINGS: Pacemaker is noted. There is moderate cardiomegaly. A hiatal hernia is present. There is no pneumothorax or pleural effusion. Interstitial thickening is noted. This has developed since exam of May 04, 2018. IMPRESSION: 1. Mild interstitial pulmonary edema. 2. Moderate cardiomegaly. 3. Hiatal hernia. Electronically signed by: Liban Elizalde M.D. 04/10/2019 6:51 AM Dictated: 04/10/19 0650 Transcribed: 04/10/19 0650 Hospital Course (1) Acute on chronic diastolic heart failure: Presented with increasing shortness of breath Chest x showed mild interstitial pulmonary edema. Echo did showed EF of 60 to 65%, mild valvular heart disease and severe pulmonary hypertension was noted to be new findings cardiology on board Case discussed with cardiology recommended to discharge on lasix 20mg daily (previous dose was 20mg x 3days/week) 2 step exercise done today and pt does not require any oxygen supplement Has been saturated well on RA Follow up with cardiology on 04/19/19 Clinically improves significantly Bronchitis Presented with shortness of breath and cough Chest x-ray did not show any pneumonia Noted to have high white count Ceftriaxone and doxycycline were added We will continue with oral doxycycline to complete 7 to 10 days of antibiotic (2) Atrial fibrillation: Noted to have paroxysmal atrial fibrillation in the past Now has chronic defibrillation Heart rate is controlled on oral amiodarone Continue coumadin, INR 2.1 today Follow up with the [facility] (3) Tachy-saray syndrome: Status post pacemaker placement (4) CKD (chronic kidney disease) stage 3, GFR 30-59 ml/min: Creatinine remains within normal range (5) Hyperlipidemia: Continues statin DVT prophylaxis Continue with CODE STATUS Full Disposition Will discharge home today Follow up with Dr. Cuellar on 04/17 @ 10:05 AM Follow up with cardiology on 04/19/19 Total Time Total Time Spent Total Time Spent (In Minutes): 35 minutes Total Time Includes: Examination of the Patient, Discharge Planning, Medication Reconciliation, Communication With Other Providers and Other Discharge Plan Discharge Items Patient Disposition: Home - Self-Care Reason For Visit: SOB Discharge Diagnosis: Acute on chronic diastolic heart failure Bronchitis Atrial fibrillation Activity: Resume your previous activity Activity Comment: As tolerated Non-emergency contact: Primary Care Provider and [employer] Call non-emergency contact if: your temperature is above 101 Follow-up/Referrals: Rambo Castro DO [Primary Care Provider] - Diet: Heart Healthy Addtl Attending Provider Instructions: Follow up with primary care provider Dr. Cuellar on 04/17 @ 10:05 AM Follow up with cardiology Dr. Rowland on 04/19/19 at 3 PM Follow up with the coumadin clinic Complete course of antibiotic Fall precaution Check BMP in 1 week to monitor electrolytes and kidney function Pending Studies at Discharge: No Stand-Alone Forms: My [facility] Medications and DC Order Prescriptions: New doxycycline hyclate 100 mg Capsule 100 mg PO BID@1000,2200 5 Days Qty: 10 RF: 0 prednisone 20 mg Tablet 20 mg PO DAILY 5 Days Qty: 5 RF: 0 Continued amiodarone 200 mg Tablet 200 mg PO DAILY RF: 0 simvastatin 10 mg Tablet 10 mg PO PM RF: 0 aspirin [Aspir-81] 81 mg Tablet,Delayed Release (Dr/Ec) 81 mg PO DAILY RF: 0 ascorbic acid (vitamin C) [Vitamin C] 500 mg Tablet 500 mg PO DAILY RF: 0 cholecalciferol (vitamin D3) [Vitamin D3] 1,000 unit Capsule 1,000 unit PO DAILY RF: 0 Centrum Silver 0.4-300-250 mg-mcg-mcg Tablet 1 tab PO DAILY RF: 0 Calcium 600 + D(3) 600 mg calcium- 200 unit Capsule 1 tab PO DAILY RF: 0 metoprolol tartrate 50 mg tablet 50 mg PO QPM RF: 0 metoprolol tartrate 25 mg tablet 75 mg PO QAM RF: 0 acetaminophen [Tylenol Extra Strength] 500 mg Tablet 500 mg PO DIRECTED PRN (Reason: PAIN/FEVER) RF: 0 sennosides [senna] 8.6 mg Tablet 8.6 mg PO Q OTHER DAY RF: 0 warfarin 2.5 mg Tablet 2.5 mg PO [id number] RF: 0 warfarin 2.5 mg Tablet 1.25 mg PO WK RF: 0 amlodipine 2.5 mg Tablet 2.5 mg PO DAILY RF: 0 MegaRed [place]-3 Krill Oil [id number] mg Capsule 1 cap PO DAILY RF: 0 Changed furosemide [Lasix] 20 mg Tablet 20 mg PO DAILY 30 Days Qty: 30 RF: 0 Discharge Orders: Discharge Order (Routine); Ordered 04/13/19 Ordered By: Spike Gonzalez Admission Data Admit Date/Time: 04/10/19 05:20 Attending Provider: Spike Gonzalez Admit Provider: Maximo Renteria Primary Care Provider: Rambo Castro Other Providers: Maximo Renteria ; Tim Berg ; Jania Torres Other Interventions: Discharge Summary Assessment (RN) Last Done: 04/13/19 15:00 DC Date/Time DO NOT enter until pt leaves facility: 04/13/19 16:05
== END 2019-04-13 16:05 | disposition home or self-care (01) | DRG 291 ==
LOC: ED 02:30 → 2S 05:20 → SUATTDRO 05:20 → 2S 05:33

== ENCOUNTER 2021-03-31 10:23 | Inpatient (IN) ==
[2021-03-31 11:11] LABS: Basophils # (auto) 0.02 K/uL (0-0.2); Basophils % (auto) 0.2 %; Eosinophils # (auto) 0.03 K/uL (0-0.5); Eosinophils % (auto) 0.3 %; Hematocrit (blood only) 28.9 % (42-52); Hemoglobin 9.4 g/dL (14.0-18.0); Immature Granulocytes # (auto) 0.02 K/uL (0.00-0.02); Immature Granulocytes % (auto) 0.2 %; Lymphocytes # (auto) 1.09 K/uL (1.2-3.4); Lymphocytes % (auto) 11.8 %; Mean Corpuscular Hemoglobin 28.8 pg (25-34); Mean Corpuscular Hgb Conc 32.5 g/dL (32-36); Mean Corpuscular Volume 88.7 fL (80-100); Mean Platelet Volume 11.9 fL (7.4-10.4); Monocytes # (auto) 0.62 K/uL (0.11-0.59); Monocytes % (auto) 6.7 %; Neutrophils # (auto) 7.47 K/uL (1.4-6.5); Neutrophils % (auto) 80.8 %; Platelet Count 210 K/uL (130-400); RDW Coefficient of Variation 14.3 % (11.5-14.5); RDW Standard Deviation 46.5 fL (36.4-46.3); Red Blood Count 3.26 M/uL (4.7-6.1); White Blood Count 9.25 K/uL (4.8-10.8)
[2021-03-31 11:20] LABS: INR 3.1 (0.9-1.1); Partial Thromboplastin Ratio 1.3; Partial Thromboplastin Time 32.9 Seconds (21.0-31.0); Prothrombin Time 28.4 Seconds (9.0-12.0)
[2021-03-31] MEDS ORDERED: SODIUM CHLORIDE 0.9% 250 ML IV PRN (11:27)
[2021-03-31] MEDS ORDERED: PHYTONADIONE 10 MG in SODIUM CHLORIDE 0.9% 50 ML IV STA (11:28)
[2021-03-31] MEDS ORDERED: PANTOprazole 80 MG in DEXTROSE 5% 100 ML IV STA (11:29)
[2021-03-31 11:35] LABS: Albumin Level 2.9 gm/dl (3.4-5.0); BUN Creatinine Ratio 68.5 (10-20); Creatinine Clr Calc Pharmacy 57.2 ml/min; Est GFR (African American) 73.4 ml/min; Est GFR (Non-African American) 63.4 ml/min; Potassium 4.4 mmol/L (3.5-5.1)
[2021-03-31 11:38] LABS: Bilirubin,Total 0.3 mg/dl (0.2-1); Globulin 2.9 gm/dl (2.5-4.0); Total Protein 5.8 gm/dl (6.4-8.2)
--- NOTE | 2021-03-31 11:43 | XRay Report ---
XR chest 1V portable HISTORY: Shortness of breath. COMPARISON: Chest 04/10/2019. FINDINGS: The cardiac silhouette remains mildly enlarged. Is left-sided dual-chamber pacemaker. Large hiatus hernia persists. A few left basilar linear densities likely representing subsegmental atelect asis. No pneumothorax. No pleural effusions. No new focal lung consolidations to suggest pneumonia. N o evidence for pulmonary edema. Mild interstitial thickening which has improved. This is likely chron ic. IMPRESSION: 1. No acute process within the chest. 2. Large hiatus hernia, unchanged. ACT 112: Negative or not required by law. Electronically signed by: Jarret Kessler M.D. 03/31/2021 11:42 AM
[2021-03-31] MEDS ORDERED: PHYTONADIONE 10 MG in DEXTROSE 5% 50 ML IV ONE (11:45)
[2021-03-31] MEDS: PANTOprazole 40 MG in DEXTROSE 5% 100 ML IV SCH ×3 (12:42→22:51)
--- NOTE | 2021-03-31 13:15 | Gastrointestinal Consultation ---
Date of Consultation March 31, 2021 Assessment & Plan (1) Upper GI bleed: 89 year old male admitted w/ weakness, fatigue, melena at home. HGB today 9.4 w/ Bun 71. Baseline labs show HGB 14 just two weeks ago with normal BUN. Concern for UGI bleed NPO Hold ASA, coumadin Vit K today EGD tomorrow please ensure INR < 1.6 IV PPI bolus and drip Trend HGB Monitor output Transfuse PRN Thank you for allowing us to participate in the care of this patient. Please call with any acute changes, questions or concerns. Please see addendum below with additional recommendation from my supervising physician. Supervising Physician Co-Signing Physician Notes I performed a history and physical examination of the patient today, including specifically on physical exam - soft abdomen. I have discussed the patient's management with the advanced practitioner. Please refer to the nurse practitioner's note for the documented findings and plan of care. EGD tomorrow after correcting INR. History of Present Illness Reason for Consultation: GIB Requesting Physician: Teresa Attending Physician: Teresa History of Present Illness 89 year old male with history of afib, tachy-saray syndrome s/p pacer, HTN, dyslipidemia others below admitted w/ suspected GIB, large episode of melena at home. Pt was seen and evaluated, chart reviewed. Pt notes yesterday he noted to felt fatigued, tired. This AM early he woke up with urge to have BM and noted this to be dark, tarry stool. No BRBPR. No abd pain. No nause, vomiting or GERD. No dysphagia. No ETOh No tobacco + ASA + coumadin No history of EGD Colonoscopy years ago he is not sure where Allergies Allergy/AdvReac Type Severity Reaction Status Date / Time coffee (Coffea arabica) Allergy Severe SWELLING Verified 03/31/21 11:40 OF LIPS AND HIVES Penicillins AdvReac Intermediate GIVES Verified 03/31/21 11:40 PATIENT THRUSH meperidine AdvReac Mild LIGHTHEADED Verified 03/31/21 11:40 NESS Home Medications Medication Instructions Recorded Confirmed Type ascorbic acid (vitamin C) 500 mg 500 mg PO DAILY 04/15/18 03/31/21 History tablet (Vitamin C) cholecalciferol (vitamin D3) 25 2,000 unit PO DAILY 04/15/18 03/31/21 History mcg (1,000 unit) capsule (Vitamin D3) ozfzzoqg-dug-kqtfs acid 0.4 1 tab PO DAILY 04/15/18 03/31/21 History mg-lycopene 300 mcg-lutein 250 mcg tablet (Centrum Silver) simvastatin 10 mg tablet 10 mg PO PM 04/15/18 03/31/21 History acetaminophen 500 mg tablet 500 mg PO Q6H PRN 05/04/18 03/31/21 History (Tylenol Extra Strength) metoprolol tartrate 25 mg tablet 75 mg PO QAM 05/04/18 03/31/21 History metoprolol tartrate 50 mg tablet 50 mg PO QPM 05/04/18 03/31/21 History amlodipine 2.5 mg tablet 2.5 mg PO DAILY 04/10/19 03/31/21 History krill 500 mg-omega 3 115 mg-dha 30 1 cap PO DAILY 04/10/19 03/31/21 History mg-epa 64 pd-dnclaoh-zriem capsule (MegaRed [place]-3 Krill Oil) sennosides 8.6 mg tablet 8.6 mg PO Q OTHER DAY 04/10/19 03/31/21 History warfarin 2.5 mg tablet 2.5 mg PO SUTUTHSA 04/10/19 03/31/21 History warfarin 2.5 mg tablet 5 mg PO MOWEFR 04/10/19 03/31/21 History aspirin 81 mg tablet,delayed 81 mg PO DAILY 03/31/21 03/31/21 History release furosemide 20 mg tablet 20 mg PO DAILY 03/31/21 03/31/21 History Patient History Medical History Atrial fibrillation Chronic diastolic (congestive) heart failure CKD (chronic kidney disease) stage 3, GFR 30-59 ml/min Generalized weakness History of left heart catheterization "1995; no CAD" HTN (hypertension) Hyperlipidemia Pacemaker SOB (shortness of breath) Tachy-saray syndrome "s/p pacemaker insertion 2005" V tach Surgical History History of appendectomy History of cholecystectomy Family History Other Colon cancer Coronary heart disease Prostate cancer Social History Smoking Status: Never smoker Second Hand Exposure: No; Hx Alcohol Use: No Hx Substance Use: No Preferred Language: Nigerian Communication Ability: Effective 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 Required: No Beliefs That Will Affect Care: None marital status: Current Living Situation: Spouse and Family current occupational status: retired Other Information That Helps Us Care for You: No Feels Safe at Home: Yes Safety Concerns: Feels Safe At This Time Assistive Devices: Glasses Review of Systems Review of Systems: All systems reviewed & are unremarkable except as noted in HPI & below Physical Exam Constitutional: WD/WN, vitals as above Neck: trachea midline, no thyromegaly Respiratory: normal respiratory effort, lungs clear to auscultation Cardiovascular: RRR, no murmur, no edema Gastrointestinal (Abdomen): normal bowel sounds, soft, nontender, no hepa tosplenomegaly Skin: no rashes, warm and dry Results & Data ([facility]) Vital Signs (Past 12 Hours) Vital Signs Temp Pulse Resp BP Pulse Ox 03/31/21 12:30 73 15 146/69 H 99 03/31/21 12:00 69 22 157/80 H 100 03/31/21 11:30 130 H 20 129/59 L 99 03/31/21 11:00 81 13 155/91 H 98 03/31/21 10:30 36.7 C 78 14 149/86 H 99 Laboratory Results 03/31/21 03/31/21 03/31/21 Range/Units 12:30 11:45 11:45 WBC (4.8-10.8) K/uL RBC (4.7-6.1) M/uL Hgb (14.0-18.0) g/dL Hct (42-52) % MCV (80-100) fL MCH (25-34) pg MCHC (32-36) g/dL RDW Std Deviation (36.4-46.3) fL RDW Coeff of Klever (11.5-14.5) % Plt Count (130-400) K/uL MPV (7.4-10.4) fL Immature Gran % (Auto) % Neut % (Auto) % Lymph % (Auto) % [place] % (Auto) % Eos % (Auto) % Baso % (Auto) % Neut # (Auto) (1.4-6.5) K/uL Lymph # (Auto) (1.2-3.4) K/uL [place] # (Auto) (0.11-0.59) K/uL Eos # (Auto) (0-0.5) K/uL Baso # (Auto) (0-0.2) K/uL Immature Gran # (Auto) (0.00-0.02) K/uL PT (9.0-12.0) Seconds INR (0.9-1.1) APTT (21.0-31.0) Seconds PTT Ratio Sodium (136-145) mmol/L Potassium (3.5-5.1) mmol/L Chloride (98-107) mmol/L Carbon Dioxide (21-32) mmol/L Anion Gap (3-11) BUN (7-18) mg/dl Creatinine (0.6-1.4) mg/dl Est Cr Clr Drug Dosing ml/min Est GFR ( Amer) ml/min Est GFR (Non-Af Amer) ml/min BUN/Creatinine Ratio (10-20) Glucose (70-99) mg/dl Calcium (8.5-10.1) mg/dl Total Bilirubin (0.2-1) mg/dl AST (15-37) U/L ALT (12-78) U/L Alkaline Phosphatase (45-117) U/L Total Protein (6.4-8.2) gm/dl Albumin (3.4-5.0) gm/dl Globulin (2.5-4.0) gm/dl Albumin/Globulin Ratio (0.9-2) COVID-19 Eval Order Covid19 at [facility] SARS-CoV-2 (PCR) NEGATIVE (Negative) Blood Type Blood Type Recheck O Negative Antibody Screen Crossmatch 03/31/21 03/31/21 03/31/21 Range/Units 11:34 10:40 10:40 WBC (4.8-10.8) K/uL RBC (4.7-6.1) M/uL Hgb (14.0-18.0) g/dL Hct (42-52) % MCV (80-100) fL MCH (25-34) pg MCHC (32-36) g/dL RDW Std Deviation (36.4-46.3) fL RDW Coeff of Klever (11.5-14.5) % Plt Count (130-400) K/uL MPV (7.4-10.4) fL Immature Gran % (Auto) % Neut % (Auto) % Lymph % (Auto) % [place] % (Auto) % Eos % (Auto) % Baso % (Auto) % Neut # (Auto) (1.4-6.5) K/uL Lymph # (Auto) (1.2-3.4) K/uL [place] # (Auto) (0.11-0.59) K/uL Eos # (Auto) (0-0.5) K/uL Baso # (Auto) (0-0.2) K/uL Immature Gran # (Auto) (0.00-0.02) K/uL PT 28.4 H (9.0-12.0) Seconds INR 3.1 H (0.9-1.1) APTT 32.9 H (21.0-31.0) Seconds PTT Ratio 1.3 Sodium 146 H (136-145) mmol/L Potassium 4.4 (3.5-5.1) mmol/L Chloride 116 H (98-107) mmol/L Carbon Dioxide 23 (21-32) mmol/L Anion Gap 7.0 (3-11) BUN 71 H (7-18) mg/dl Creatinine 1.04 (0.6-1.4) mg/dl Est Cr Clr Drug Dosing 57.2 ml/min Est GFR ( Amer) 73.4 ml/min Est GFR (Non-Af Amer) 63.4 ml/min BUN/Creatinine Ratio 68.5 H (10-20) Glucose 147 H (70-99) mg/dl Calcium 8.0 L (8.5-10.1) mg/dl Total Bilirubin 0.3 (0.2-1) mg/dl AST 16 (15-37) U/L ALT 15 (12-78) U/L Alkaline Phosphatase 59 (45-117) U/L Total Protein 5.8 L (6.4-8.2) gm/dl Albumin 2.9 L (3.4-5.0) gm/dl Globulin 2.9 (2.5-4.0) gm/dl Albumin/Globulin Ratio 1.0 (0.9-2) COVID-19 Eval Order SARS-CoV-2 (PCR) (Negative) Blood Type O Negative Blood Type Recheck Antibody Screen NEGATIVE Crossmatch See Detail 03/31/21 Range/Units 10:40 WBC 9.25 (4.8-10.8) K/uL RBC 3.26 L (4.7-6.1) M/uL Hgb 9.4 L (14.0-18.0) g/dL Hct 28.9 L (42-52) % MCV 88.7 (80-100) fL MCH 28.8 (25-34) pg MCHC 32.5 (32-36) g/dL RDW Std Deviation 46.5 H (36.4-46.3) fL RDW Coeff of Klever 14.3 (11.5-14.5) % Plt Count 210 (130-400) K/uL MPV 11.9 H (7.4-10.4) fL Immature Gran % (Auto) 0.2 % Neut % (Auto) 80.8 % Lymph % (Auto) 11.8 % [place] % (Auto) 6.7 % Eos % (Auto) 0.3 % Baso % (Auto) 0.2 % Neut # (Auto) 7.47 H (1.4-6.5) K/uL Lymph # (Auto) 1.09 L (1.2-3.4) K/uL [place] # (Auto) 0.62 H (0.11-0.59) K/uL Eos # (Auto) 0.03 (0-0.5) K/uL Baso # (Auto) 0.02 (0-0.2) K/uL Immature Gran # (Auto) 0.02 (0.00-0.02) K/uL PT (9.0-12.0) Seconds INR (0.9-1.1) APTT (21.0-31.0) Seconds PTT Ratio Sodium (136-145) mmol/L Potassium (3.5-5.1) mmol/L Chloride (98-107) mmol/L Carbon Dioxide (21-32) mmol/L Anion Gap (3-11) BUN (7-18) mg/dl Creatinine (0.6-1.4) mg/dl Est Cr Clr Drug Dosing ml/min Est GFR ( Amer) ml/min Est GFR (Non-Af Amer) ml/min BUN/Creatinine Ratio (10-20) Glucose (70-99) mg/dl Calcium (8.5-10.1) mg/dl Total Bilirubin (0.2-1) mg/dl AST (15-37) U/L ALT (12-78) U/L Alkaline Phosphatase (45-117) U/L Total Protein (6.4-8.2) gm/dl Albumin (3.4-5.0) gm/dl Globulin (2.5-4.0) gm/dl Albumin/Globulin Ratio (0.9-2) COVID-19 Eval Order SARS-CoV-2 (PCR) (Negative) Blood Type Blood Type Recheck Antibody Screen Crossmatch
--- NOTE | 2021-03-31 13:50 | History & Physical Report ---
Date of Service March 31, 2021 Assessment & Plan (1) Acute blood loss anemia: (2) Upper GI bleed: Plan: -admit to tele -patient presenting from home with reports of generalized weakness and black stools -in the ED, hgb 9.4 (was recently 14.0 on 03/19/21), BUN 71, INR 3.1 -received PPI bolus and drip - continue drip -s/p Vitamin K 10mg IV -NPO, IVF -GI consult, case discussed with JUAN MANUEL Hood (3) Chronic diastolic (congestive) heart failure: Plan: -volume status acceptable -hold Lasix for now due to GI bleeding (4) Atrial fibrillation: Plan: -rate controlled on metoprolol, continue -holding/reversing Coumadin as above (5) HTN (hypertension): Plan: -hold amlodipine and Lasix for now -continue metoprolol (6) Tachy-saray syndrome: (7) Pacemaker: Plan: -no acute issues (8) DVT prophylaxis: Plan: -SCDs History of Present Illness Chief Complaint: Weakness, Black Stools Primary Care Provider: Rambo Castro DO 89 year old male with PMH chronic diastolic CHF, HTN, tachy-saray syndrome s/p pacer, paroxysmal VT, chronic afib anticoagulated on Coumadin, and other problems listed below who presents to the ED with reports of weakness and black stools. Patient reports that yesterday he was unable to finish his lunch which is rather unusual for him. He states he got full very quickly. He felt generally weak for most of the day yesterday. He had one bowel movement that was soft and may have been darker in color but he is unsure. This morning he had another bowel movement that was loose and black in color. He felt very weak. No abdom inal pain, nausea, or vomiting. He denies lightheadedness, dizziness, and syncopal event. No chest pain or shortness of breath. Reports he otherwise has been feeling well recently. No other recent illnesses, fever, or chills. He denies urinary symptoms. In the ED, labs show hgb 9.4 (was recently 14.0 on 03/19/21), BUN 71, INR 3.1. Patient is hemodynamically stable. He was given a Protonix bolus and started on a drip, Vit K 10mg IV, and IVF. Allergies Allergy/AdvReac Type Severity Reaction Status Date / Time coffee (Coffea arabica) Allergy Severe SWELLING Verified 03/31/21 11:40 OF LIPS AND HIVES Penicillins AdvReac Intermediate GIVES Verified 03/31/21 11:40 PATIENT THRUSH meperidine AdvReac Mild LIGHTHEADED Verified 03/31/21 11:40 NESS Home Medications Medication Instructions Recorded Confirmed Type ascorbic acid (vitamin C) 500 mg 500 mg PO DAILY 04/15/18 03/31/21 History tablet (Vitamin C) cholecalciferol (vitamin D3) 25 2,000 unit PO DAILY 04/15/18 03/31/21 History mcg (1,000 unit) capsule (Vitamin D3) lrhswcfr-tbk-xxdpu acid 0.4 1 tab PO DAILY 04/15/18 03/31/21 History mg-lycopene 300 mcg-lutein 250 mcg tablet (Centrum Silver) simvastatin 10 mg tablet 10 mg PO PM 04/15/18 03/31/21 History acetaminophen 500 mg tablet 500 mg PO Q6H PRN 05/04/18 03/31/21 History (Tylenol Extra Strength) metoprolol tartrate 25 mg tablet 75 mg PO QAM 05/04/18 03/31/21 History metoprolol tartrate 50 mg tablet 50 mg PO QPM 05/04/18 03/31/21 History amlodipine 2.5 mg tablet 2.5 mg PO DAILY 04/10/19 03/31/21 History krill 500 mg-omega 3 115 mg-dha 30 1 cap PO DAILY 04/10/19 03/31/21 History mg-epa 64 nt-wxcytxv-melve capsule (MegaRed [place]-3 Krill Oil) sennosides 8.6 mg tablet 8.6 mg PO Q OTHER DAY 04/10/19 03/31/21 History warfarin 2.5 mg tablet 2.5 mg PO SUTUTHSA 04/10/19 03/31/21 History warfarin 2.5 mg tablet 5 mg PO MOWEFR 04/10/19 03/31/21 History furosemide 20 mg tablet 20 mg PO DAILY 03/31/21 03/31/21 History pantoprazole 40 mg tablet,delayed 40 mg PO BID #60 tab 04/04/21 Rx release Past Med/Surg History Medical History Atrial fibrillation Chronic diastolic (congestive) heart failure CKD (chronic kidney disease) stage 3, GFR 30-59 ml/min Generalized weakness History of left heart catheterization "1995; no CAD" HTN (hypertension) Hyperlipidemia Pacemaker SOB (shortness of breath) Tachy-saray syndrome "s/p pacemaker insertion 2005" V tach Surgical History History of appendectomy History of cholecystectomy Family History Other Colon cancer Coronary heart disease Prostate cancer Social History Smoking Status: Never smoker Second Hand Exposure: No; Hx Alcohol Use: No Hx Substance Use: No Preferred Language: Yi Communication Ability: Effective Insurance Representative Required: No Beliefs That Will Affect Care: None marital status: Current Living Situation: Spouse and Family current occupational status: retired Other Information That Helps Us Care for You: No Feels Safe at Home: Yes Safety Concerns: Feels Safe At This Time Assistive Devices: Walker Review of Systems Review of Systems: ROS per HPI, all other systems reviewed and negative Physical Exam Constitutional: WD/WN, vitals as above Eyes: PERRL, conjunctivae normal, anicteric sclerae ENMT: external ear and nose normal, oropharynx normal Respiratory: normal respiratory effort, lungs clear to auscultation Cardiovascular: Rate/Rhythm: regular rate and regular rhythm Vessels: normal peripheral pulses Extremities: no edema Gastrointestinal (Abdomen): normal bowel sounds, soft, nontender, no hepatosplenomegaly Musculoskeletal: no cyanosis or clubbing, extremities motor strength 5/5 Skin: no rashes, warm and dry Neurologic: PERRL, EOMI, accommodation nl, no face palsy, no dysarthria Psychiatric: A+Ox3, euthymic affect Results & Data Results & Data ([facility]) Vital Signs (Past 12 Hours) Vital Signs Temp Pulse Resp BP Pulse Ox 03/31/21 13:31 82 17 185/83 H 03/31/21 13:00 101 H 20 135/71 100 03/31/21 12:30 73 15 146/69 H 99 03/31/21 12:00 69 22 157/80 H 100 03/31/21 11:30 130 H 20 129/59 L 99 03/31/21 11:00 81 13 155/91 H 98 03/31/21 10:30 36.7 C 78 14 149/86 H 99 Laboratory Results Short CBC 03/31/21 Range/Units 10:40 WBC 9.25 (4.8-10.8) K/uL Hgb 9.4 L (14.0-18.0) g/dL Hct 28.9 L (42-52) % Plt Count 210 (130-400) K/uL BMP 03/31/21 10:40 Sodium 146 H Potassium 4.4 Chloride 116 H Carbon Dioxide 23 BUN 71 H Creatinine 1.04 Glucose 147 H Calcium 8.0 L Liver Function 03/31/21 Range/Units 10:40 Total Bilirubin 0.3 (0.2-1) mg/dl AST 16 (15-37) U/L ALT 15 (12-78) U/L Alkaline Phosphatase 59 (45-117) U/L Albumin 2.9 L (3.4-5.0) gm/dl Diagnostic Findings Chest X-Ray 03/31/21 11:03 XR chest 1V portable HISTORY: Shortness of breath. COMPARISON: Chest 04/10/2019. FINDINGS: The cardiac silhouette remains mildly enlarged. Is left-sided dual- chamber pacemaker. Large hiatus hernia persists. A few left basilar linear densities likely representing subsegmental atelectasis. No pneumothorax. No pleural effusions. No new focal lung consolidations to suggest pneumonia. No evidence for pulmonary edema. Mild interstitial thickening which has improved. This is likely chronic. IMPRESSION: 1. No acute process within the chest. 2. Large hiatus hernia, unchanged. ACT 112: Negative or not required by law. Electronically signed by: Jarret Kessler M.D. 03/31/2021 11:42 AM Code Status & VTE Plan Code Status Patient is a full code as per my discussion with him. VTE Prophylaxis Plan VTE Prophylaxis will be ordered: Yes Supervising Physician Co-Signing Physician Notes Pt was seen and examined. Agreed with Julienne ZAMBRANO exam, assessment and plan. 89 year old male with PMH chronic diastolic CHF, HTN, tachy-saray syndrome s/p pacer, paroxysmal VT, chronic afib anticoagulated on Coumadin presents to the ED with weakness and black stools. He said that he had about 2 bowel movement that seems to be black in color. He said that he felt weak. Denies any abdominal pain, nausea, or vomiting, lightheadedness, dizziness, and syncopal event, chest pain or shortness of breath. In the ED, labs show hgb 9.4 (was recently 14.0 on 03/19/21), BUN 71, INR 3.1. Patient is hemodynamically stable. Received Protonix bolus and currently on protonix drip. Vit K given. Gastro consulted. Will continue IVF. Will keep NPO. Will hold coumadin and diuretic for now. Continue monitor closely. MD Lisa
[2021-03-31] MEDS ORDERED: ACETAMINOPHEN 325 MG TAB PO PRN (14:56)
--- NOTE | 2021-03-31 15:15 | Emergency Department Note ---
History of Present Illness General Chief complaint: Illness Stated complaint: SOB, WEAKNESS Time Seen by Provider: 03/31/21 11:11 Source: patient, RN notes reviewed and old records reviewed Mode of arrival: ambulatory Limitations: no limitations History of Present Illness This patient is an 89-year-old male who is brought in by EMS after feeling weak. He said that he ate lunch yesterday and had a loose stool he is not sure if it was dark does not think he had blood or melena at the time and felt generally weak. He felt a little short of breath he drank some iced tea and he felt better. He did not sleep well overnight he had some nightmares he had to get up and urinate as well. He said he barely made into the bathroom this morning and had a black bowel movement and felt generally weak. He feels fine at present. He had no visible blood in the stool. No chest pain no shortness of breath at present. No palpitations. He is on chronic anticoagulation with Coumadin for A. fib he does not have a history of blood clots or artificial heart valve he tells me. No urinary symptoms. No focal numbness weakness. He has had the Covid vaccine. No cough or shortness of breath or abdominal pain. Home Medications Medication Instructions Recorded Confirmed Type ascorbic acid (vitamin C) 500 mg 500 mg PO DAILY 04/15/18 03/31/21 History tablet (Vitamin C) cholecalciferol (vitamin D3) 25 2,000 unit PO DAILY 04/15/18 03/31/21 History mcg (1,000 unit) capsule (Vitamin D3) rwwitckf-ovk-yinwx acid 0.4 1 tab PO DAILY 04/15/18 03/31/21 History mg-lycopene 300 mcg-lutein 250 mcg tablet (Centrum Silver) simvastatin 10 mg tablet 10 mg PO PM 04/15/18 03/31/21 History acetaminophen 500 mg tablet 500 mg PO Q6H PRN 05/04/18 03/31/21 History (Tylenol Extra Strength) metoprolol tartrate 25 mg tablet 75 mg PO QAM 05/04/18 03/31/21 History metoprolol tartrate 50 mg tablet 50 mg PO QPM 05/04/18 03/31/21 History amlodipine 2.5 mg tablet 2.5 mg PO DAILY 04/10/19 03/31/21 History krill 500 mg-omega 3 115 mg-dha 30 1 cap PO DAILY 04/10/19 03/31/21 History mg-epa 64 fv-ofgoach-deuzd capsule (MegaRed [place]-3 Krill Oil) sennosides 8.6 mg tablet 8.6 mg PO Q OTHER DAY 04/10/19 03/31/21 History warfarin 2.5 mg tablet 2.5 mg PO SUTUTHSA 04/10/19 03/31/21 History warfarin 2.5 mg tablet 5 mg PO MOWEFR 04/10/19 03/31/21 History aspirin 81 mg tablet,delayed 81 mg PO DAILY 03/31/21 03/31/21 History release furosemide 20 mg tablet 20 mg PO DAILY 03/31/21 03/31/21 History Allergies Allergy/AdvReac Type Severity Reaction Status Date / Time coffee (Coffea arabica) Allergy Severe SWELLING Verified 03/31/21 11:40 OF LIPS AND HIVES Penicillins AdvReac Intermediate GIVES Verified 03/31/21 11:40 PATIENT THRUSH meperidine AdvReac Mild LIGHTHEADED Verified 03/31/21 11:40 NESS Past Med/Surg History Medical History Atrial fibrillation Chronic diastolic (congestive) heart failure CKD (chronic kidney disease) stage 3, GFR 30-59 ml/min Generalized weakness History of left heart catheterization "1995; no CAD" HTN (hypertension) Hyperlipidemia Pacemaker SOB (shortness of breath) Tachy-saray syndrome "s/p pacemaker insertion 2005" V tach Surgical History History of appendectomy History of cholecystectomy Family History Other Colon cancer Coronary heart disease Prostate cancer Social History Smoking Status: Never smoker Second Hand Exposure: No; Hx Alcohol Use: No Hx Substance Use: No Preferred Language: [place] Communication Ability: Effective Zoo Caretaker Required: No Beliefs That Will Affect Care: None marital status: Current Living Situation: Spouse current occupational status: retired Feels Safe at Home: Yes Assistive Devices: Glasses Review of Systems A total of 10 systems reviewed and were otherwise negative Physical Exam Vital Signs Vital Signs - 24 hr 03/31/21 10:30 03/31/21 11:00 03/31/21 11:30 Temperature 36.7 C Temperature Source Oral Pulse Rate 78 81 130 H Pulse Rate from SpO2 Sensor 78 79 76 Respiratory Rate 14 13 20 Blood Pressure 149/86 H 155/91 H 129/59 L Blood Pressure Mean 107 112 82 Pulse Oximetry 99 98 99 Oxygen Delivery Method Room Air Sepsis Recent Fever Within 48 Hours No Sepsis New/Unexplained Change in Mental Status No Sepsis Action Taken by Nursing No Action Required General: Well developed well nourished older male who appears in no acute distress, breathing comfortably on room air. Normal speech HEENT: Normal cephalic atraumatic. Pupils are equal round and reactive to light. Extraocular movements are intact. Oropharynx is pink with moist mucous membranes. No swelling of the mouth lips or tongue. Neck: Supple with a midline trachea. No meningeal signs or stiffness, no JVD or bruits. No Stridor. Chest: Clear to auscultation bilaterally. No wheezes or rhonchi. No increased work of breathing. Heart: Regular rate without murmurs or gallops. Abdomen: Soft nontender, nondistended without rebound guarding or rigidity. Rectal: Normal tone. Stool is melanotic and guaiac positive Extremities: No cyanosis clubbing or edema. No calf tenderness or assymetry Spine/Back. Non tender to palpation. No CVA tenderness Skin: Good turgor without rashes. Neurologic exam: Cranial nerves two through 12 are intact. Motor and sensation are intact and symmetrical throughout. Course Administered Medications Pantoprazole Sodium 40 mg/ (Dextrose) 100 mls @ 20 mls/hr IV Q5H [facility] Stop: 04/30/21 11:29 Last Admin: 03/31/21 12:42 Dose: 8 mg/hr, 20 mls/hr Documented by: [id number] Discontinued Medications Pantoprazole Sodium 80 mg/ (Dextrose) 120 mls @ 480 mls/hr IV NOW STA Stop: 03/31/21 11:43 Last Infusion: 03/31/21 12:55 Dose: 0 mls/hr Documented by: [id number] Admin: 03/31/21 12:24 Dose: 480 mls/hr Documented by: [id number] Phytonadione 10 mg/ Dextrose 51 mls @ 101 mls/hr IV TODAY@1145 ONE Stop: 03/31/21 12:15 Last Infusion: 03/31/21 12:55 Dose: 0 mls/hr Documented by: [id number] Admin: 03/31/21 12:09 Dose: 101 mls/hr Documented by: [id number] Critical Care Time Critical Care Time: Yes Total Critical Care Time: 30 Due to the patient's weakness, GI bleed, need for multiple medications, blood typing, reversal of anticoagulation frequent reassessment and consultation, I have personally spent greater than 30 minutes of critical care time in the direct management of this patient. This includes bedside care, interpretation of diagnostic studies, and testing, discussion with consultants, patient, and family members, and other required patient management activities. This 30 minutes is in excess of all separately billable procedures. Medical Decision Making Differential Diagnosis GI bleed, anticoagulation, sepsis, electrolyte or metabolic abnormality, cardiac disease, Covid Medical Records Attestation: I reviewed the patient's medical records. Home Medications Current Medication List: was personally reviewed by me Laboratory Data Attestation: I reviewed the patient's lab results. Result diagrams: 03/31/21 10:40 03/31/21 10:40 Lab Results 03/31/21 03/31/21 03/31/21 Range/Units 10:40 10:40 10:40 WBC 9.25 (4.8-10.8) K/uL RBC 3.26 L (4.7-6.1) M/uL Hgb 9.4 L (14.0-18.0) g/dL Hct 28.9 L (42-52) % MCV 88.7 (80-100) fL MCH 28.8 (25-34) pg MCHC 32.5 (32-36) g/dL RDW Std Deviation 46.5 H (36.4-46.3) fL RDW Coeff of Klever 14.3 (11.5-14.5) % Plt Count 210 (130-400) K/uL MPV 11.9 H (7.4-10.4) fL Immature Gran % (Auto) 0.2 % Neut % (Auto) 80.8 % Lymph % (Auto) 11.8 % Greene % (Auto) 6.7 % Eos % (Auto) 0.3 % Baso % (Auto) 0.2 % Neut # (Auto) 7.47 H (1.4-6.5) K/uL Lymph # (Auto) 1.09 L (1.2-3.4) K/uL Greene # (Auto) 0.62 H (0.11-0.59) K/uL Eos # (Auto) 0.03 (0-0.5) K/uL Baso # (Auto) 0.02 (0-0.2) K/uL Immature Gran # (Auto) 0.02 (0.00-0.02) K/uL PT 28.4 H (9.0-12.0) Seconds INR 3.1 H (0.9-1.1) APTT 32.9 H (21.0-31.0) Seconds PTT Ratio 1.3 Sodium 146 H (136-145) mmol/L Potassium 4.4 (3.5-5.1) mmol/L Chloride 116 H (98-107) mmol/L Carbon Dioxide 23 (21-32) mmol/L Anion Gap 7.0 (3-11) BUN 71 H (7-18) mg/dl Creatinine 1.04 (0.6-1.4) mg/dl Est Cr Clr Drug Dosing 57.2 ml/min Est GFR ( Amer) 73.4 ml/min Est GFR (Non-Af Amer) 63.4 ml/min BUN/Creatinine Ratio 68.5 H (10-20) Glucose 147 H (70-99) mg/dl Calcium 8.0 L (8.5-10.1) mg/dl Total Bilirubin 0.3 (0.2-1) mg/dl AST 16 (15-37) U/L ALT 15 (12-78) U/L Alkaline Phosphatase 59 (45-117) U/L Total Protein 5.8 L (6.4-8.2) gm/dl Albumin 2.9 L (3.4-5.0) gm/dl Globulin 2.9 (2.5-4.0) gm/dl Albumin/Globulin Ratio 1.0 (0.9-2) Blood Type Antibody Screen Crossmatch 03/31/21 Range/Units 11:34 WBC (4.8-10.8) K/uL RBC (4.7-6.1) M/uL Hgb (14.0-18.0) g/dL Hct (42-52) % MCV (80-100) fL MCH (25-34) pg MCHC (32-36) g/dL RDW Std Deviation (36.4-46.3) fL RDW Coeff of Klever (11.5-14.5) % Plt Count (130-400) K/uL MPV (7.4-10.4) fL Immature Gran % (Auto) % Neut % (Auto) % Lymph % (Auto) % Greene % (Auto) % Eos % (Auto) % Baso % (Auto) % Neut # (Auto) (1.4-6.5) K/uL Lymph # (Auto) (1.2-3.4) K/uL Greene # (Auto) (0.11-0.59) K/uL Eos # (Auto) (0-0.5) K/uL Baso # (Auto) (0-0.2) K/uL Immature Gran # (Auto) (0.00-0.02) K/uL PT (9.0-12.0) Seconds INR (0.9-1.1) APTT (21.0-31.0) Seconds PTT Ratio Sodium (136-145) mmol/L Potassium (3.5-5.1) mmol/L Chloride (98-107) mmol/L Carbon Dioxide (21-32) mmol/L Anion Gap (3-11) BUN (7-18) mg/dl Creatinine (0.6-1.4) mg/dl Est Cr Clr Drug Dosing ml/min Est GFR ( Amer) ml/min Est GFR (Non-Af Amer) ml/min BUN/Creatinine Ratio (10-20) Glucose (70-99) mg/dl Calcium (8.5-10.1) mg/dl Total Bilirubin (0.2-1) mg/dl AST (15-37) U/L ALT (12-78) U/L Alkaline Phosphatase (45-117) U/L Total Protein (6.4-8.2) gm/dl Albumin (3.4-5.0) gm/dl Globulin (2.5-4.0) gm/dl Albumin/Globulin Ratio (0.9-2) Blood Type O Negative Antibody Screen NEGATIVE Crossmatch See Detail Imaging Data Attestation: I personally reviewed and interpreted this imaging study as follows: My Impression: Chest x-rayno acute infiltrate, failure, pneumothorax. There is a large hiatal hernia. Radiologist's Impression: Chest X-Ray 03/31/21 11:03 XR chest 1V portable HISTORY: Shortness of breath. COMPARISON: Chest 04/10/2019. FINDINGS: The cardiac silhouette remains mildly enlarged. Is left-sided dual- chamber pacemaker. Large hiatus hernia persists. A few left basilar linear densities likely representing subsegmental atelectasis. No pneumothorax. No pleural effusions. No new focal lung consolidations to suggest pneumonia. No evidence for pulmonary edema. Mild interstitial thickening which has improved. This is likely chronic. IMPRESSION: 1. No acute process within the chest. 2. Large hiatus hernia, unchanged. ACT 112: Negative or not required by law. Electronically signed by: Jarret Kessler M.D. 03/31/2021 11:42 AM ECG Data Attestation: I personally reviewed and interpreted this ECG as follows: Indication: + weakness Rate (beats per minute): 87 Rhythm: + other (Ventricular paced rhythm) ECG Intervals/blocks: + IVCD ECG ST segments: + Normal ST segments ECG Findings: no PACs or no PVCs Comparison ECG Date: from (04/10/19) Change: no significant change MDM Narrative This patient comes in as described above he had a dark bowel movement and feeling weak he has been hemodynamically stable. He looks well and is asymptomatic now but felt very weak when getting up this morning and also yester day. He had 2 dark bowel movements in the last 24 hours. I did a rectal exam and it was melanotic that was guaiac positive. IV access was established his hemoglobin was 9.3 which was down about 3 g compared to last hemoglobin which was about 2 years ago. He has no white count or fever to suggest infection. EKG shows a paced rhythm and there is no ischemic changes. Chest x-ray shows a large hiatal hernia but no acute CHF. His BUN was elevated consistent with a GI bleed as well. He has no other significant acute electrolyte or metabolic abnormalities. His INR was 3.1. He is anticoagulated for anticoagulation is A. fib. He denies any heart valve or blood clot history. In light of this, we did give him IV vitamin K as well as started on IV Protonix bolus and drip. He has been typed and crossed for 4 units packed red cells and may ultimately need a transfusion but at present does not. He is ready in case he does. I have consulted the [facility] hospitalist to see him in ER for these measures Continuous cardiac monitoring: Due to his weakness he was placed on the monitor and upon my interpretation was noted to be in a paced rhythm at a rate of 80 Impression & Plan Upper GI bleed, Pacemaker, Weakness, Current use of halfway anticoagulation, Lab test negative for COVID-19 virus Discharge Plan Visit Data Chief Complaint: Illness Stated Complaint: SOB, WEAKNESS ED Provider: Bill Forrest Discharge Problem: Upper GI bleed, Pacemaker, Weakness, Current use of parts counterman anticoagulation, Lab test negative for COVID-19 virus Discharge Instructions Interventions: ED Discharge Assessment Last Done: 03/31/21 14:00
--- NOTE | 2021-03-31 15:56 | Electrocardiogram Report ---
Test Reason : Blood Pressure : / mmHG Vent. Rate : 087 BPM Atrial Rate : 088 BPM P-R Int : 000 ms QRS Dur : 156 ms QT Int : 436 ms P-R-T Axes : 000 -78 096 degrees QTc Int : 524 ms Ventricular-paced rhythm Abnormal ECG When compared with ECG of 10-APR-2019 02:54, Vent. rate has increased BY 26 BPM Confirmed by Trey Swenson ([id number]) on 03/31/2021 3:55:57 PM Referred By: ED Confirmed By:Trey Swenson
[2021-03-31 16:02] LABS: Hematocrit (blood only) 26.2 % (42-52); Hemoglobin 8.5 g/dL (14.0-18.0)
[2021-03-31] MEDS: SODIUM CHLORIDE 0.9% 1000ML 1,000 ML IV SCH (16:06)
[2021-03-31] MEDS: METOPROLOL TARTRATE 50 MG TAB PO SCH (20:06)
[2021-04-01] MEDS: SODIUM CHLORIDE 0.9% 1000ML 1,000 ML IV SCH ×2 (01:19→12:10)
[2021-04-01] MEDS: PANTOprazole 40 MG in DEXTROSE 5% 100 ML IV SCH ×4 (03:49→19:29)
[2021-04-01 04:40] LABS: Hematocrit (blood only) 22.5 % (42-52); Hemoglobin 7.2 g/dL (14.0-18.0); Mean Corpuscular Hemoglobin 28.8 pg (25-34); Mean Platelet Volume 11.4 fL (7.4-10.4); Platelet Count 157 K/uL (130-400); RDW Coefficient of Variation 14.4 % (11.5-14.5); RDW Standard Deviation 47.4 fL (36.4-46.3); White Blood Count 8.01 K/uL (4.8-10.8)
[2021-04-01 05:00] LABS: BUN Creatinine Ratio 62.7 (10-20); Calcium 7.6 mg/dl (8.5-10.1); Creatinine Clr Calc Pharmacy 63.2 ml/min; Est GFR (African American) 88.7 ml/min; Est GFR (Non-African American) 76.5 ml/min; Potassium 3.8 mmol/L (3.5-5.1)
[2021-04-01] MEDS ORDERED: SODIUM CHLORIDE 0.9% 250 ML IV PRN (06:31)
[2021-04-01 07:43] LABS: INR 1.2 (0.9-1.1); Prothrombin Time 12.1 Seconds (9.0-12.0)
[2021-04-01] MEDS: METOPROLOL TARTRATE 25 MG TAB PO SCH (08:08)
--- NOTE | 2021-04-01 08:44 | Anesthesiology Consultation ---
Date of Service April 01, 2021 Assessment & Plan (1) Encounter for pre-operative examination: Chart Review Chart Review: Acceptable Risk for Surgery History Surgery Operation Date: 04/01/21 16:30 Proposed Procedures p Esophagogastroduodenoscopy Dr Rader - Baljinder Rader MD Height/Weight Height: 6 ft Weight: 87.9 kg Allergies Allergy/AdvReac Type Severity Reaction Status Date / Time coffee (Coffea arabica) Allergy Severe SWELLING Verified 03/31/21 11:40 OF LIPS AND HIVES Penicillins AdvReac Intermediate GIVES Verified 03/31/21 11:40 PATIENT THRUSH meperidine AdvReac Mild LIGHTHEADED Verified 03/31/21 11:40 NESS Medications Home Medications Medication Instructions Recorded Confirmed Last Taken ascorbic acid (vitamin C) 500 mg 500 mg PO DAILY 04/15/18 03/31/21 03/30/21 tablet (Vitamin C) cholecalciferol (vitamin D3) 25 2,000 unit PO DAILY 04/15/18 03/31/21 03/30/21 mcg (1,000 unit) capsule (Vitamin D3) emolrrlk-nro-xqapl acid 0.4 1 tab PO DAILY 04/15/18 03/31/21 03/30/21 mg-lycopene 300 mcg-lutein 250 mcg tablet (Centrum Silver) simvastatin 10 mg tablet 10 mg PO PM 04/15/18 03/31/21 03/30/21 acetaminophen 500 mg tablet 500 mg PO Q6H PRN 05/04/18 03/31/21 Unknown (Tylenol Extra Strength) metoprolol tartrate 25 mg tablet 75 mg PO QAM 05/04/18 03/31/21 03/30/21 metoprolol tartrate 50 mg tablet 50 mg PO QPM 05/04/18 03/31/21 03/30/21 amlodipine 2.5 mg tablet 2.5 mg PO DAILY 04/10/19 03/31/21 03/30/21 krill 500 mg-omega 3 115 mg-dha 30 1 cap PO DAILY 04/10/19 03/31/21 03/30/21 mg-epa 64 vw-azeyncu-khsof capsule ([employer] [address] [employer]) sennosides 8.6 mg tablet 8.6 mg PO Q OTHER DAY 04/10/19 03/31/21 03/30/21 warfarin 2.5 mg tablet 2.5 mg PO SUTUTHSA 04/10/19 03/31/21 03/30/21 warfarin 2.5 mg tablet 5 mg PO VESNA 04/10/19 03/31/21 03/28/21 aspirin 81 mg tablet,delayed 81 mg PO DAILY 03/31/21 03/31/21 03/30/21 release furosemide 20 mg tablet 20 mg PO DAILY 03/31/21 03/31/21 03/30/21 Active Medications Generic Name Dose Route Start Last Admin Trade Name Ghanshyam PRN Reason Stop Dose Admin Pantoprazole Sodium 40 mg/ 100 mls @ 20 mls/hr 03/31/21 11:30 04/01/21 03:49 Dextrose IV 04/30/21 11:29 8 mg/hr Q5H DAI 20 mls/hr Administration 8 MG/HR Sodium Chloride 1,000 mls @ 100 mls/hr 03/31/21 14:56 04/01/21 01:19 Nss 1000ml IV 04/30/21 14:55 100 mls/hr .Q10H DAI Administration Metoprolol Tartrate 50 mg 03/31/21 21:00 03/31/21 20:06 Metoprolol Tartrate 50 Mg Tab PO 04/30/21 20:59 50 mg QPM DAI Administration Metoprolol Tartrate 75 mg 04/01/21 09:00 04/01/21 08:08 Metoprolol Tartrate 25 Mg Tab PO 05/01/21 08:59 75 mg QAM DAI Administration Past Medical History Medical History Atrial fibrillation Chronic diastolic (congestive) heart failure CKD (chronic kidney disease) stage 3, GFR 30-59 ml/min Generalized weakness History of left heart catheterization "1995; no CAD" HTN (hypertension) Hyperlipidemia Pacemaker SOB (shortness of breath) Tachy-saray syndrome "s/p pacemaker insertion 2005" V tach Past Family History Family History Other Colon cancer Coronary heart disease Prostate cancer Past Surgical History Surgical History History of appendectomy History of cholecystectomy Social History Smoking Status: Never smoker Hx Alcohol Use: No Hx Substance Use: No substance use type: does not use Physical Exam Vital Signs Last Vital Signs Temp 36.7 C 04/01/21 08:15 Pulse 70 04/01/21 08:15 Resp 18 04/01/21 08:15 BP 131/71 04/01/21 08:15 Pulse Ox 99 04/01/21 08:15 Testing Laboratory Results 04/01/21 04:12 04/01/21 04:12 PT 12.1 Seconds (9.0-12.0) H 04/01/21 07:04 INR 1.2 (0.9-1.1) H 04/01/21 07:04 APTT 32.9 Seconds (21.0-31.0) H 03/31/21 10:40 Blood Type O Negative 03/31/21 11:34 Antibody Screen NEGATIVE 03/31/21 11:34 Electrocardiogram Date: 03/31/21 V paced 87 Chest X-Ray Date: 03/31/21 Findings: + NAD (hiatal hernia) Echocardiogram Date: 04/10/19 EF: 60% LV Function: normal Valvular Disease: + (mild) and + MR (mild) severe pulmonary hypertension
--- NOTE | 2021-04-01 08:57 | History & Physical Bridge Note ---
Date of Service April 01, 2021 History & Physical Bridge Note I have examined the patient, reviewed the History & Physical and in the interval since the performance of the History & Physical I have noted the following changes of clinical significance: no changes noted Patient was explained in detail regarding risks, benefits, limitations and alternatives of the above endoscopic procedure. Risks of intravenous sedation used for procedure were also explained. Risks include, but not limited to perforation, bleeding, infection, respiratory distress, cardiac arrest and . Patient is also aware about the possibility of missed lesion. Patient's questions were answered. The patient verbalized understanding the information and agreed to undergo the procedure. EGD today
[2021-04-01] MEDS ORDERED: PROPOFOL IV EMULSION 10 MG/ML 20 ML VIAL IV ONE (09:26)
[2021-04-01] MEDS ORDERED: PHENYLEPHRINE 100MCG/ML 5ML SYR ONE (09:26)
[2021-04-01] MEDS ORDERED: LIDOCAINE 2% 2 ML VIAL/AMP(20MG/ML) INFIL ONE (09:26)
--- NOTE | 2021-04-01 09:27 | GI REPORT ---
Patient Name: Jame Kevin Procedure Date: 04/01/2021 9:00 AM Date of : 1930 Admit Type: Inpatient Age: 89 Gender: Male Attending MD: Baljinder Rader MD Procedure: Upper GI endoscopy Providers: Baljinder Rader MD Referring MD: LATISHA SHETH Indications: Melena Medicines: Propofol per Anesthesia Complications: No immediate complications. Estimated Blood Loss: Estimated blood loss: none. Procedure: Pre-Anesthesia Assessment: - Prior to the procedure, a History and Physical was performed, and patient medications, allergies and sensitivities were reviewed. The patient's tolerance of previous anesthesia was reviewed. - The risks and benefits of the procedure and the sedation options and risks were discussed with the patient. All questions were answered and informed consent was obtained. - Patient identification and proposed procedure were verified prior to the procedure by the physician and the nurse. The procedure was verified in the procedure room. - Pre-procedure physical examination revealed no contraindications to sedation. After obtaining informed consent, the endoscope was passed under direct vision. Throughout the procedure, the patient's blood pressure, pulse, and oxygen saturations were monitored continuously. The Endoscope was introduced through the mouth, and advanced to the second part of duodenum. The upper GI endoscopy was accomplished without difficulty. The patient tolerated the procedure well. Findings: The examined esophagus was normal. A large hiatal hernia was present. One non-bleeding cratered gastric ulcer with a visible vessel was found in the prepyloric region of the stomach. The lesion was 10 mm in largest dimension. Coagulation for hemostasis using bipolar probe was successful. For hemostasis, two hemostatic clips were successfully placed (MR conditional). The duodenal bulb and second portion of the duodenum were normal. Impression: - Normal esophagus. - Large hiatal hernia. - Non-bleeding gastric ulcer with a visible vessel. Treated with bipolar cautery. Clips (MR conditional) were placed. - Normal duodenal bulb and second portion of the duodenum. Recommendation: - Return patient to [facility] for ongoing care. - Clear liquid diet today. - Resume Coumadin (warfarin) at prior dose in 3 days. Watch for rebleeding. - Repeat upper endoscopy in 2 months to check healing. - Use a proton pump inhibitor IV for 1 day then switch to PO BID for 2 months. Baljinder Rader MD 04/01/2021 9:27:32 AM This report has been signed electronically. Note Initiated On: 04/01/2021 9:00 AM Number of Addenda: 0 I attest to the content of the Intraoperative Record and orders documented therein, exceptions below {[id number]}
--- NOTE | 2021-04-01 10:03 | Anesthesiology Progress Note ---
Date of Service April 01, 2021 Anesthesia Post Procedure Vital Signs Vital Signs: Temp Pulse Pulse Resp BP BP BP 04/01/21 09:43 71 16 144/75 H 04/01/21 09:30 36.2 C L 71 16 128/61 04/01/21 08:59 36.5 C 75 18 125/64 04/01/21 08:30 36.6 C 74 20 142/61 H 04/01/21 08:15 36.7 C 70 18 131/71 04/01/21 07:57 37.1 C 69 18 108/60 04/01/21 07:02 36.7 C 63 17 112/63 04/01/21 03:47 37.1 C 72 20 117/61 04/01/21 00:00 66 03/31/21 22:54 36.6 C 77 18 145/60 H 03/31/21 20:24 36.5 C 81 20 124/61 03/31/21 16:00 82 03/31/21 15:00 36.3 C L 80 18 146/68 H 03/31/21 14:56 37.0 C 89 18 139/74 03/31/21 14:01 135/60 03/31/21 13:31 82 17 185/83 H 03/31/21 13:00 101 H 20 135/71 03/31/21 12:30 73 15 146/69 H 03/31/21 12:00 69 22 157/80 H 03/31/21 11:30 130 H 20 129/59 L 03/31/21 11:00 81 13 155/91 H 03/31/21 10:30 36.7 C 78 14 149/86 H Pulse Ox 04/01/21 09:43 98 04/01/21 09:30 96 04/01/21 08:59 99 04/01/21 08:30 99 04/01/21 08:15 99 04/01/21 07:57 99 04/01/21 07:02 97 04/01/21 03:47 97 04/01/21 00:00 03/31/21 22:54 100 03/31/21 20:24 98 03/31/21 16:00 03/31/21 15:00 99 03/31/21 14:56 98 03/31/21 14:01 03/31/21 13:31 03/31/21 13:00 100 03/31/21 12:30 99 03/31/21 12:00 100 03/31/21 11:30 99 03/31/21 11:00 98 03/31/21 10:30 99 Transfer of Care Handoff Completed per policy Notes Mental Status: alert / awake / arousable Patient Amnestic to Procedure: Yes Nausea / Vomiting: adequately controlled Pain: adequately controlled Airway Patency, RR, SpO2: stable & adequate BP & HR: stable & adequate Hydration State: stable & adequate Anesthetic Complications: no major complications apparent
[2021-04-01 12:32] LABS: Hematocrit (blood only) 24.4 % (42-52); Hemoglobin 8.1 g/dL (14.0-18.0)
--- NOTE | 2021-04-01 19:09 | Hospitalist Progress Note ---
Date of Service April 01, 2021 Assessment & Plan (1) Acute blood loss anemia: (2) Upper GI bleed: Plan: Presenting from home with reports of generalized weakness and black stools Possible related to warfarin with INR 3.1 Hemoglobin on admission was 9.4 (was recently 14.0 on 03/19/21) Received vitamin K in the ER and was started on PPI drip Hemoglobin 7.2 today Status post 1 unit PRBC Gastro on board EGD showed large hiatal hernia. Nonbleeding gastric ulcer with visible vessel treated with biopsy- Normal esophagus. Status post EGD with cautery of a bleeding gastric ulcer by Dr. Bill LEIJA recommended to resume Coumadin at prior dose in 3 days. Continue monitor closely for rebleeding Repeat EGD in 2 months to check for healing Continue IV PPI for 1 day then switch to p.o. PPI twice daily for 2 months Continue monitor hemoglobin We will start on clear liquid diet (3) Chronic diastolic (congestive) heart failure: Plan: -volume status acceptable -hold Lasix for now due to GI bleeding (4) Atrial fibrillation: Plan: -rate controlled on metoprolol, continue -holding/reversing Coumadin as above (5) HTN (hypertension): Plan: -hold amlodipine and Lasix for now -continue metoprolol (6) Tachy-saray syndrome: (7) Pacemaker: Plan: -no acute issues (8) DVT prophylaxis: Plan: -SCDs Admission and Anticipated Discharge Date Admission Date: March 31, 2021 Subjective Patient was seen and examined for follow-up of GI bleed Sitting in chair with no acute distress Patient said that he feels fine He said he has not had any more episodes of dark stools Denies any chest pain, palpitation, dizziness, shortness of breath. Review of Systems Review of Systems: All systems reviewed & are unremarkable except as noted in Subjective Physical Exam Physical Exam: General- No acute distress Head- atraumatic Eyes- PERRL, EOMI, ENT- oropharynx clear Neck- supple, no JVD Lungs- clear to auscultation Heart- regular rhythm; no murmur Abdomen- normal bowel sounds, soft, nontender Extremities- no calf tenderness Neuro- alert, oriented x 3; PERRL, EOMI; no facial palsy; no dysarthria Skin- warm & dry Results & Data Results & Data ([facility]) Vital Signs (Past 12 Hours) Vital Signs Temp Pulse Pulse Resp BP BP BP 04/01/21 14:58 36.4 C L 62 16 113/57 L 04/01/21 11:19 36.5 C 73 19 125/69 04/01/21 10:30 36.7 C 81 18 139/65 04/01/21 10:00 68 04/01/21 09:58 69 16 130/65 04/01/21 09:43 71 16 144/75 H 04/01/21 09:30 36.2 C L 71 16 128/61 04/01/21 08:59 36.5 C 75 18 125/64 04/01/21 08:30 36.6 C 74 20 142/61 H 04/01/21 08:15 36.7 C 70 18 131/71 04/01/21 07:57 37.1 C 69 18 108/60 Pulse Ox 04/01/21 14:58 99 04/01/21 11:19 100 04/01/21 10:30 99 04/01/21 10:00 04/01/21 09:58 98 04/01/21 09:43 98 04/01/21 09:30 96 04/01/21 08:59 99 04/01/21 08:30 99 04/01/21 08:15 99 04/01/21 07:57 99
[2021-04-01] MEDS: METOPROLOL TARTRATE 50 MG TAB PO SCH (19:57)
[2021-04-02] MEDS: PANTOprazole 40 MG in DEXTROSE 5% 100 ML IV SCH ×5 (00:03→19:27)
[2021-04-02] MEDS: METOPROLOL TARTRATE 25 MG TAB PO SCH (08:40)
[2021-04-02 11:18] LABS: Hemoglobin 7.4 g/dL (14.0-18.0); Mean Corpuscular Hemoglobin 28.7 pg (25-34); Mean Corpuscular Hgb Conc 32.2 g/dL (32-36); Mean Corpuscular Volume 89.1 fL (80-100); Mean Platelet Volume 11.4 fL (7.4-10.4); Platelet Count 152 K/uL (130-400); RDW Coefficient of Variation 15.6 % (11.5-14.5); RDW Standard Deviation 50.2 fL (36.4-46.3); Red Blood Count 2.58 M/uL (4.7-6.1); White Blood Count 6.44 K/uL (4.8-10.8)
[2021-04-02 11:43] LABS: BUN Creatinine Ratio 33.7 (10-20); Calcium 7.4 mg/dl (8.5-10.1); Creatinine Clr Calc Pharmacy 65.4 ml/min; Est GFR (Non-African American) 77.6 ml/min; Potassium 3.7 mmol/L (3.5-5.1)
[2021-04-02] MEDS ORDERED: SODIUM CHLORIDE 0.9% 250 ML IV PRN (11:48)
--- NOTE | 2021-04-02 11:52 | Gastroenterology Progress Note ---
Date of Service April 02, 2021 Assessment & Plan Admission and Anticipated Discharge Date Admission Date: March 31, 2021 Subjective s/p EGD with cautery of a bleeding gastric ulcer. Today labs showed stable H/H. Continue PPI and plan per EGD recommendations from yesterday. Recall GI if needed. Results & Data ([facility]) Vital Signs (Past 12 Hours) Vital Signs Temp Pulse Pulse Pulse Resp BP Pulse Ox 04/02/21 11:16 36.4 C L 62 18 120/57 L 99 04/02/21 08:00 61 04/02/21 07:25 36.6 C 70 19 136/69 95 04/02/21 03:04 36.5 C 74 20 158/71 H 99
--- NOTE | 2021-04-02 16:41 | Hospitalist Progress Note ---
Date of Service April 02, 2021 Assessment & Plan (1) Acute blood loss anemia: (2) Upper GI bleed: Plan: Presenting from home with reports of generalized weakness and black stools Possible related to warfarin with INR 3.1 Hemoglobin on admission was 9.4 (was recently 14.0 on 03/19/21) Received vitamin K in the ER and was started on PPI drip Hemoglobin last night was 8.1, repeat hemoglobin this morning 7.4 Type and cross and will transfuse another 1 unit PRBC today(total 2 units PRBC transfusion during the hospital course so far) Gastro on board EGD showed large hiatal hernia. Nonbleeding gastric ulcer with visible vessel treated with biopsy- Normal esophagus. Status post EGD with cautery of a bleeding gastric ulcer by Dr. Bill LEIJA recommended to resume Coumadin at prior dose in 3 days. Continue monitor closely for rebleeding Repeat EGD in 2 months to check for healing Continue IV PPI for 1 day then switch to p.o. PPI twice daily for 2 months Continue monitor hemoglobin Diet advance as tolerated (3) Chronic diastolic (congestive) heart failure: Plan: Volume status acceptable Lasix was held due to GI bleeding, will resume tomorrow (4) Atrial fibrillation: Plan: rate controlled on metoprolol, continue Continue to hold Coumadin, plan to resume on Wednesday if hemoglobin stable (5) HTN (hypertension): Plan: amlodipine and Lasix on hold for now continue metoprolol (6) Tachy-saray syndrome: (7) Pacemaker: Plan: -no acute issues (8) DVT prophylaxis: Plan: -SCDs due to GI bleed Admission and Anticipated Discharge Date Admission Date: March 31, 2021 Subjective Patient was seen and examined for follow-up of GI bleed Sitting in chair with no acute distress He said that he has not had any more bowel movement Denies any chest pain, palpitation, dizziness, shortness of breath. Review of Systems Review of Systems: All systems reviewed & are unremarkable except as noted in Subjective Physical Exam Physical Exam: General- No acute distress Head- atraumatic Eyes- PERRL, EOMI, ENT- oropharynx clear Neck- supple, no JVD Lungs- clear to auscultation Heart- regular rhythm; no murmur Abdomen- normal bowel sounds, soft, nontender Extremities- no calf tenderness Neuro- alert, oriented x 3; PERRL, EOMI; no facial palsy; no dysarthria Skin- warm & dry Results & Data Results & Data ([facility]) Vital Signs (Past 12 Hours) Vital Signs Temp Pulse Pulse Resp BP BP Pulse Ox 04/02/21 16:19 36.3 C L 63 18 157/73 H 100 04/02/21 15:19 36.4 C L 61 18 129/64 100 04/02/21 15:00 60 04/02/21 14:19 36.3 C L 59 L 18 120/59 L 99 04/02/21 14:00 04/02/21 13:49 36.3 C L 65 18 120/59 L 99 04/02/21 13:19 36.3 C L 64 18 111/55 L 100 04/02/21 13:03 36.3 C L 63 18 120/59 L 100 04/02/21 12:36 36.3 C L 69 18 107/60 100 04/02/21 11:16 36.4 C L 62 18 120/57 L 99 04/02/21 08:00 61 04/02/21 07:25 36.6 C 70 19 136/69 95 Pulse Ox 04/02/21 16:19 04/02/21 15:19 04/02/21 15:00 04/02/21 14:19 04/02/21 14:00 99 04/02/21 13:49 04/02/21 13:19 04/02/21 13:03 04/02/21 12:36 04/02/21 11:16 04/02/21 08:00 04/02/21 07:25
[2021-04-02] MEDS: METOPROLOL TARTRATE 50 MG TAB PO SCH (20:09)
[2021-04-03] MEDS: PANTOprazole 40 MG in DEXTROSE 5% 100 ML IV SCH ×3 (00:30→10:19)
[2021-04-03] MEDS: METOPROLOL TARTRATE 25 MG TAB PO SCH (08:49)
[2021-04-03 09:34] LABS: BUN Creatinine Ratio 19.2 (10-20); Calcium 8.4 mg/dl (8.5-10.1); Creatinine Clr Calc Pharmacy 68.6 ml/min; Est GFR (African American) 88.3 ml/min; Est GFR (Non-African American) 76.2 ml/min
[2021-04-03 09:57] LABS: Hematocrit (blood only) 27.5 % (42-52); Mean Corpuscular Hemoglobin 28.8 pg (25-34); Mean Corpuscular Hgb Conc 32.7 g/dL (32-36); Mean Corpuscular Volume 87.9 fL (80-100); Platelet Count 148 K/uL (130-400); RDW Coefficient of Variation 15.4 % (11.5-14.5); RDW Standard Deviation 48.5 fL (36.4-46.3); Red Blood Count 3.13 M/uL (4.7-6.1); White Blood Count 6.21 K/uL (4.8-10.8)
--- NOTE | 2021-04-03 13:19 | Hospitalist Progress Note ---
Date of Service April 03, 2021 Assessment & Plan (1) Acute blood loss anemia: Plan: As below (2) Upper GI bleed: Plan: Presenting from home with reports of generalized weakness and black stools Possible related to warfarin with INR 3.1 Hemoglobin on admission was 9.4 (was recently 14.0 on 03/19/21) Received vitamin K in the ER and was started on PPI drip Type and cross and will transfuse another 1 unit PRBC today(total 2 units PRBC transfusion during the hospital course so far) Appreciate GI input and recommendation EGD showed large hiatal hernia. And Nonbleeding gastric ulcer with visible vessel treated with bipolar cautery- Normal esophagus. GI recommended to resume Coumadin at prior dose in 3 days. Continue monitor closely for rebleeding Repeat EGD in 2 months to check for healing Received intravenous PPI drip and has been changed to oral twice daily doses which will be continued for 2 months Hemoglobin remained stable Diet advance as tolerated-was advised to walk around the hallway with assistance and see how he feels before discharging home (3) Chronic diastolic (congestive) heart failure: Plan: Volume status acceptable Lasix was held due to GI bleeding, Lasix has been restarted (4) Atrial fibrillation: Plan: rate controlled on metoprolol, continue Continue to hold Coumadin, plan to resume on Wednesday if hemoglobin stable Will restart Coumadin from tomorrow (5) HTN (hypertension): Plan: amlodipine and Lasix on hold for now continue metoprolol (6) Tachy-saray syndrome: (7) Pacemaker: Plan: -no acute issues (8) DVT prophylaxis: Plan: -SCDs due to GI bleed Plan: Likely discharge tomorrow Admission and Anticipated Discharge Date Admission Date: March 31, 2021 Subjective 04/03/2021 The patient was seen and examined in telemetry unit He has been feeling extremely weak and lethargic this morning His hemoglobin remains stable and denies any more blood loss Review of Systems Review of Systems: All systems reviewed and are unremarkable except as noted below Physical Exam Physical Exam: Lying in bed comfortably Constitutional: well developed, well nourished, + ill appearing and + obese Eyes: PERRL, conjunctivae normal, anicteric sclerae ENMT: external ear and nose normal, oropharynx normal Neck: trachea midline, no thyromegaly Respiratory: no respiratory distress Auscultation: lungs clear to auscultation bilaterally Cardiovascular: Rate/Rhythm: regular rate and regular rhythm Heart Sounds: normal S1 and normal S2; no murmur Extremities: no edema Gastrointestinal (Abdomen): Inspection/Auscultation: normal bowel sounds; abdomen not distended Percussion/Palpation: abdomen soft; abdomen nontender Musculoskeletal: No acute arthritis in any joint Neurologic: Alert, awake and oriented x3. No focal sensory and motor deficit appreciated Results & Data Results & Data ([facility] [place]) Vital Signs (Past 12 Hours) Vital Signs Temp Pulse Pulse Resp BP BP Pulse Ox 04/03/21 11:46 36.5 C 81 18 129/65 91 04/03/21 07:22 36.8 C 69 17 117/47 L 96 04/03/21 07:00 61 04/03/21 03:06 36.6 C 81 18 131/75 97 Laboratory Results Short CBC 04/03/21 Range/Units 08:37 WBC 6.21 (4.8-10.8) K/uL Hgb 9.0 L (14.0-18.0) g/dL Hct 27.5 L (42-52) % Plt Count 148 (130-400) K/uL BMP 04/03/21 08:37 Sodium 144 Potassium 4.0 Chloride 114 H Carbon Dioxide 23 BUN 17 Creatinine 0.88 Glucose 106 H Calcium 8.4 L Medications Administered Current Inpatient Medications Acetaminophen (Acetaminophen 325 Mg Tab) 650 mg PO Q4H PRN PRN Reason: Pain or Fever Stop: 04/30/21 14:55 Metoprolol Tartrate (Metoprolol Tartrate 50 Mg Tab) 50 mg PO QPM DAI Stop: 04/30/21 20:59 Last Admin: 04/02/21 20:09 Dose: 50 mg Documented by: Metoprolol Tartrate (Metoprolol Tartrate 25 Mg Tab) 75 mg PO QAM DAI Stop: 05/01/21 08:59 Last Admin: 04/03/21 08:49 Dose: 75 mg Documented by: Pantoprazole Sodium (Pantoprazole 40 Mg Tab) 40 mg PO BID DAI Stop: 05/03/21 20:59
[2021-04-03] MEDS: METOPROLOL TARTRATE 50 MG TAB PO SCH (20:07)
[2021-04-03] MEDS: PANTOprazole 40 MG TAB PO SCH (20:07)
[2021-04-04 04:48] VITALS: TEMP 97.7
[2021-04-04 06:54] LABS: Basophils # (auto) 0.01 K/uL (0-0.2); Basophils % (auto) 0.1 %; Eosinophils # (auto) 0.21 K/uL (0-0.5); Hematocrit (blood only) 26.3 % (42-52); Hemoglobin 8.6 g/dL (14.0-18.0); Immature Granulocytes # (auto) 0.02 K/uL (0.00-0.02); Immature Granulocytes % (auto) 0.3 %; Lymphocytes # (auto) 0.81 K/uL (1.2-3.4); Lymphocytes % (auto) 11.4 %; Mean Corpuscular Hgb Conc 32.7 g/dL (32-36); Mean Corpuscular Volume 88.6 fL (80-100); Mean Platelet Volume 11.2 fL (7.4-10.4); Monocytes # (auto) 0.74 K/uL (0.11-0.59); Monocytes % (auto) 10.4 %; Neutrophils % (auto) 74.8 %; Platelet Count 158 K/uL (130-400); RDW Coefficient of Variation 15.3 % (11.5-14.5); Red Blood Count 2.97 M/uL (4.7-6.1); White Blood Count 7.09 K/uL (4.8-10.8)
[2021-04-04 07:27] LABS: Creatinine Clr Calc Pharmacy 63.7 ml/min; Est GFR (African American) 81.9 ml/min; Est GFR (Non-African American) 70.7 ml/min; Potassium 3.4 mmol/L (3.5-5.1)
[2021-04-04] MEDS: METOPROLOL TARTRATE 25 MG TAB PO SCH (08:09)
[2021-04-04] MEDS: PANTOprazole 40 MG TAB PO SCH (08:09)
[2021-04-04] MEDS ORDERED: POTASSIUM CHLORIDE CRTAB 20 MEQ TABCR PO STA (08:40)
--- NOTE | 2021-04-04 09:11 | Hospitalist Progress Note ---
Date of Service April 04, 2021 Assessment & Plan (1) Acute blood loss anemia: Plan: As below (2) Upper GI bleed: Plan: Presenting from home with reports of generalized weakness and black stools Possible related to warfarin with INR 3.1 Hemoglobin on admission was 9.4 (was recently 14.0 on 03/19/21) Received vitamin K in the ER and was started on PPI drip Type and cross and will transfuse another 1 unit PRBC today(total 2 units PRBC transfusion during the hospital course so far) Appreciate GI input and recommendation EGD showed large hiatal hernia. And Nonbleeding gastric ulcer with visible vessel treated with bipolar cautery- Normal esophagus. GI recommended to resume Coumadin at prior dose in 3 days. Continue monitor closely for rebleeding Repeat EGD in 2 months to check for healing Received intravenous PPI drip and has been changed to oral twice daily doses which will be continued for 2 months Hemoglobin remained stable Diet advance as tolerated-was advised to walk around the hallway with assistance and see how he feels before discharging home Hemoglobin remains stable at 8.6 today To be sent home this afternoon (3) Chronic diastolic (congestive) heart failure: Plan: Volume status acceptable Lasix was held due to GI bleeding, Lasix has been restarted (4) Atrial fibrillation: Plan: rate controlled on metoprolol, continue Continue to hold Coumadin, plan to resume on Wednesday if hemoglobin stable Will restart Coumadin from tomorrow Coumadin restarted (5) HTN (hypertension): Plan: amlodipine and Lasix on hold for now continue metoprolol (6) Tachy-saray syndrome: (7) Pacemaker: Plan: -no acute issues (8) DVT prophylaxis: Plan: -SCDs due to GI bleed Plan: Likely discharge tomorrow Admission and Anticipated Discharge Date Admission Date: March 31, 2021 Subjective 04/03/2021 The patient was seen and examined in telemetry unit He has been feeling extremely weak and lethargic this morning His hemoglobin remains stable and denies any more blood loss 04/04/2021 The patient was seen and examined in telemetry unit He has been feeling much better and wants to go home Denies any symptoms and has been walking around in the hallway without any problem Review of Systems Review of Systems: All systems reviewed and are unremarkable except as noted below Physical Exam Physical Exam: Lying in bed comfortably Constitutional: well developed, well nourished, + ill appearing and + obese Eyes: PERRL, conjunctivae normal, anicteric sclerae ENMT: external ear and nose normal, oropharynx normal Neck: trachea midline, no thyromegaly Respiratory: no respiratory distress Auscultation: lungs clear to auscultation bilaterally Cardiovascular: Rate/Rhythm: regular rate and regular rhythm Heart Sounds: normal S1 and normal S2; no murmur Extremities: no edema Gastrointestinal (Abdomen): Inspection/Auscultation: normal bowel sounds; abdomen not distended Percussion/Palpation: abdomen soft; abdomen nontender Neurologic: PERRL, EOMI, accommodation nl, no face palsy, no dysarthria Results & Data Results & Data ([facility]) Vital Signs (Past 12 Hours) Vital Signs Temp Pulse Pulse Resp BP Pulse Ox 04/04/21 07:16 36.5 C 100 H 20 111/64 94 04/04/21 07:00 94 H 04/04/21 04:33 36.5 C 108 H 18 106/63 98 04/03/21 23:30 36.3 C L 88 18 116/62 99 04/03/21 23:00 77 Laboratory Results Short CBC 04/03/21 04/04/21 Range/Units 08:37 06:29 WBC 6.21 7.09 (4.8-10.8) K/uL Hgb 9.0 L 8.6 L (14.0-18.0) g/dL Hct 27.5 L 26.3 L (42-52) % Plt Count 148 158 (130-400) K/uL [facility] 04/03/21 04/04/21 08:37 06:29 Sodium 144 142 Potassium 4.0 3.4 L Chloride 114 H 112 H Carbon Dioxide 23 24 BUN 17 17 Creatinine 0.88 0.95 Glucose 106 H 99 Calcium 8.4 L 8.0 L Medications Administered Current Inpatient Medications Acetaminophen (Acetaminophen 325 Mg Tab) 650 mg PO Q4H PRN PRN Reason: Pain or Fever Stop: 04/30/21 14:55 Metoprolol Tartrate (Metoprolol Tartrate 50 Mg Tab) 50 mg PO QPM DAI Stop: 04/30/21 20:59 Last Admin: 04/03/21 20:07 Dose: 50 mg Documented by: Metoprolol Tartrate (Metoprolol Tartrate 25 Mg Tab) 75 mg PO QAM [facility] Stop: 05/01/21 08:59 Last Admin: 04/04/21 08:09 Dose: 75 mg Documented by: Pantoprazole Sodium (Pantoprazole 40 Mg Tab) 40 mg PO BID [facility] Stop: 05/03/21 20:59 Last Admin: 04/04/21 08:09 Dose: 40 mg Documented by:
[2021-04-04 11:18] VITALS: O2SAT 97
[2021-04-04 13:54] VITALS: BP 98/59; PULSE 92
--- NOTE | 2021-04-05 08:51 | Discharge Summary ---
Date of Service April 05, 2021 Admission HPI Per Admitting Provider 89 year old male with PMH chronic diastolic CHF, HTN, tachy-saray syndrome s/p pacer, paroxysmal VT, chronic afib anticoagulated on Coumadin, and other problems listed below who presents to the ED with reports of weakness and black stools. Patient reports that yesterday he was unable to finish his lunch which is rather unusual for him. He states he got full very quickly. He felt generally weak for most of the day yesterday. He had one bowel movement that was soft and may have been darker in color but he is unsure. This morning he had another bowel movement that was loose and black in color. He felt very weak. No abdominal pain, nausea, or vomiting. He denies lightheadedness, dizziness, and syncopal event. No chest pain or shortness of breath. Reports he otherwise has been feeling well recently. No other recent illnesses, fever, or chills. He denies urinary symptoms. In the ED, labs show hgb 9.4 (was recently 14.0 on 03/19/21), BUN 71, INR 3.1. Patient is hemodynamically stable. He was given a Protonix bolus and started on a drip, Vit K 10mg IV, and IVF. Admission Exam Per Admitting Provider Constitutional: WD/WN, vitals as above Eyes: PERRL, conjunctivae normal, anicteric sclerae ENMT: external ear and nose normal, oropharynx normal Respiratory: normal respiratory effort, lungs clear to auscultation Cardiovascular: Rate/Rhythm: regular rate and regular rhythm Vessels: normal peripheral pulses Extremities: no edema Gastrointestinal (Abdomen): normal bowel sounds, soft, nontender, no hepatosplenomegaly Musculoskeletal: no cyanosis or clubbing, extremities motor strength 5/5 Skin: no rashes, warm and dry Neurologic: PERRL, EOMI, accommodation nl, no face palsy, no dysarthria Psychiatric: A+Ox3, euthymic affect Principal Diagnosis Acute blood loss anemia, upper GI bleed secondary to gastric ulcer treated with bipolar cautery, chronic diastolic heart failure Discharge Exam Constitutional well developed, well nourished, + ill appearing and + obese Eyes PERRL, conjunctivae normal, anicteric sclerae ENMT external ear and nose normal, oropharynx normal Neck trachea midline, no thyromegaly Respiratory no respiratory distress Auscultation: lungs clear to auscultation bilaterally Cardiovascular Rate/Rhythm: regular rate and regular rhythm Heart Sounds: normal S1 and normal S2; no murmur Extremities: no edema Gastrointestinal (Abdomen) Inspection/Auscultation: normal bowel sounds; abdomen not distended Percussion/Palpation: abdomen soft; abdomen nontender Neurologic PERRL, EOMI, accommodation nl, no face palsy, no dysarthria Discharge Data Allergies Allergy/AdvReac Type Severity Reaction Status Date / Time coffee (Coffea arabica) Allergy Severe SWELLING Verified 03/31/21 11:40 OF LIPS AND HIVES Penicillins AdvReac Intermediate GIVES Verified 03/31/21 11:40 PATIENT THRUSH meperidine AdvReac Mild LIGHTHEADED Verified 03/31/21 11:40 NESS Consultations 03/31/21 11:38 ED Decision to Admit Stat 03/31/21 12:11 Consult Gastroenterology Routine Procedures Performed Operation Date: 04/01/21 16:30 Actual Procedures p EGD Hemostasis - Baljinder Rader MD Hospital Course (1) Acute blood loss anemia: As below (2) Upper GI bleed: Presenting from home with reports of generalized weakness and black stools Possible related to warfarin with INR 3.1 Hemoglobin on admission was 9.4 (was recently 14.0 on 03/19/21) Received vitamin K in the ER and was started on PPI drip Type and cross and will transfuse another 1 unit PRBC today(total 2 units PRBC transfusion during the hospital course so far) Appreciate GI input and recommendation EGD showed large hiatal hernia. And Nonbleeding gastric ulcer with visible vessel treated with bipolar cautery- Normal esophagus. GI recommended to resume Coumadin at prior dose in 3 days. Continue monitor closely for rebleeding Repeat EGD in 2 months to check for healing Received intravenous PPI drip and has been changed to oral twice daily doses which will be continued for 2 months Hemoglobin remained stable Diet advance as tolerated-was advised to walk around the hallway with assistance and see how he feels before discharging home Hemoglobin remains stable at 8.6 today To be sent home this afternoon (3) Chronic diastolic (congestive) heart failure: Volume status acceptable Lasix was held due to GI bleeding, Lasix has been restarted (4) Atrial fibrillation: rate controlled on metoprolol, continue Continue to hold Coumadin, plan to resume on Wednesday if hemoglobin stable Will restart Coumadin from tomorrow Coumadin restarted (5) HTN (hypertension): amlodipine and Lasix on hold for now continue metoprolol (6) Tachy-saray syndrome: (7) Pacemaker: -no acute issues (8) DVT prophylaxis: -SCDs due to GI bleed Likely discharge tomorrow Total Time Total Time Spent Total Time Spent (In Minutes): 40 minutes Discharge Plan Discharge Items Patient Disposition: Home - Self-Care Reason For Visit: GI BLEED Discharge Diagnosis: Acute blood loss anemia, upper GI bleed secondary to gastric ulcer treated with bipolar cautery, chronic diastolic heart failure Condition on Discharge: Good Activity: Resume your previous activity Non-emergency contact: Primary Care Provider Call non-emergency contact if: you have any medication questions and your symptoms worsen Follow-up/Referrals: Caitlyn Sharp MD [Hospitalist] - (Date & Time 04/09/2021 11:00 AM Provider Caitlyn Sharp MD Department General Internal Medicine [facility] ) Diet: Heart Healthy Addtl Attending Provider Instructions: Please take precautions to avoid fall Take your medications as advised specially Protonix Your Coumadin will be started from today and please have regular follow-up with the coagulation clinic Please keep appointment with your primary care provider and you will need to have a repeat endoscopy in 2 months Do not take any aspirin and/or NSAIDs Pending Studies at Discharge: No Stand-Alone Forms: My [facility] Commutable, Smoking Cessation Medications and DC Order Prescriptions: New pantoprazole 40 mg Tablet,Delayed Release (Dr/Ec) 40 mg PO BID Qty: 60 RF: 1 Continued simvastatin 10 mg Tablet 10 mg PO PM RF: 0 ascorbic acid (vitamin C) [Vitamin C] 500 mg Tablet 500 mg PO DAILY RF: 0 cholecalciferol (vitamin D3) [Vitamin D3] 1,000 unit Capsule 2,000 unit PO DAILY RF: 0 Centrum Silver 0.4-300-250 mg-mcg-mcg Tablet 1 tab PO DAILY RF: 0 metoprolol tartrate 50 mg tablet 50 mg PO QPM RF: 0 metoprolol tartrate 25 mg tablet 75 mg PO QAM RF: 0 acetaminophen [Tylenol Extra Strength] 500 mg Tablet 500 mg PO Q6H PRN (Reason: PAIN/FEVER) RF: 0 sennosides 8.6 mg Tablet 8.6 mg PO Q OTHER DAY RF: 0 warfarin 2.5 mg Tablet 5 mg PO MOWEFR RF: 0 warfarin 2.5 mg Tablet 2.5 mg PO SUTUTHSA RF: 0 amlodipine 2.5 mg Tablet 2.5 mg PO DAILY RF: 0 MegaRed [place]-3 Krill Oil [id number] mg Capsule 1 cap PO DAILY RF: 0 furosemide 20 mg Tablet 20 mg PO DAILY RF: 0 Discontinued aspirin 81 mg Tablet,Delayed Release (Dr/Ec) 81 mg PO DAILY RF: 0 Discharge Orders: Discharge Order (Routine); Ordered 04/04/21 Ordered By: Jania Torres Admission Data Admit Date/Time: 03/31/21 11:42 Attending Provider: Jania Torres Admit Provider: Spike Gonzalez Primary Care Provider: Rambo Castro Other Providers: Baljinder Rader ; Spike Gonzalez Other Interventions: Discharge Summary Assessment (RN) Last Done: 04/04/21 13:52
== END 2021-04-04 14:45 | disposition home or self-care (01) | DRG 378 ==
LOC: ED 10:23 → SUATTDRO 11:42 → 2S 11:42
DX: I13.0 Hypertensive heart and chronic kidney disease with heart failure and stage 1 through stage 4 chronic kidney disease, or unspecified chronic kidney disease; Z79.82 Long term (current) use of aspirin; E78.5 Hyperlipidemia, unspecified; Z20.822 Contact with and (suspected) exposure to COVID-19; Z88.8 Allergy status to other drugs, medicaments and biological substances; N18.30 Chronic kidney disease, stage 3 unspecified; Z91.018 Allergy to other foods; Z88.0 Allergy status to penicillin; Z95.0 Presence of cardiac pacemaker; K44.9 Diaphragmatic hernia without obstruction or gangrene; K25.4 Chronic or unspecified gastric ulcer with hemorrhage; D62 Acute posthemorrhagic anemia; T45.515A Adverse effect of anticoagulants, initial encounter; I50.32 Chronic diastolic (congestive) heart failure; I48.20 Chronic atrial fibrillation, unspecified; Z79.899 Other long term (current) drug therapy; D68.32 Hemorrhagic disorder due to extrinsic circulating anticoagulants

== ENCOUNTER 2021-04-13 04:07 | Inpatient (IN) ==
[2021-04-13 04:55] LABS: Basophils # (auto) 0.02 K/uL (0-0.2); Basophils % (auto) 0.3 %; Eosinophils # (auto) 0.16 K/uL (0-0.5); Eosinophils % (auto) 2.6 %; Hematocrit (blood only) 29.3 % (42-52); Hemoglobin 9.1 g/dL (14.0-18.0); Immature Granulocytes # (auto) 0.01 K/uL (0.00-0.02); Immature Granulocytes % (auto) 0.2 %; Lymphocytes # (auto) 0.75 K/uL (1.2-3.4); Lymphocytes % (auto) 12.3 %; Mean Corpuscular Hemoglobin 27.6 pg (25-34); Mean Corpuscular Hgb Conc 31.1 g/dL (32-36); Mean Corpuscular Volume 88.8 fL (80-100); Mean Platelet Volume 10.9 fL (7.4-10.4); Monocytes # (auto) 0.81 K/uL (0.11-0.59); Monocytes % (auto) 13.3 %; Neutrophils # (auto) 4.35 K/uL (1.4-6.5); Neutrophils % (auto) 71.3 %; Platelet Count 317 K/uL (130-400); RDW Coefficient of Variation 16.3 % (11.5-14.5); RDW Standard Deviation 51.9 fL (36.4-46.3)
[2021-04-13 05:03] LABS: Alanine Aminotransferase 16 U/L (12-78); Albumin Level 3.1 gm/dl (3.4-5.0); Aspartate Aminotransferase 17 U/L (15-37); BUN Creatinine Ratio 19.7 (10-20); Blood Urea Nitrogen 24 mg/dl (7-18); Calcium 8.1 mg/dl (8.5-10.1); Carbon Dioxide 27 mmol/L (21-32); Chloride 108 mmol/L (98-107); Creatinine Clr Calc Pharmacy 49.4 ml/min; Est GFR (African American) 60.5 ml/min; Est GFR (Non-African American) 52.2 ml/min; Glucose 110 mg/dl (70-99); Magnesium 2.2 mg/dl (1.8-2.4); Sodium 141 mmol/L (136-145)
[2021-04-13 05:08] LABS: Alkaline Phosphatase 94 U/L (45-117); Bilirubin,Total 0.3 mg/dl (0.2-1); Globulin 3.1 gm/dl (2.5-4.0); Total Protein 6.2 gm/dl (6.4-8.2); Troponin I < 0.015 ng/ml (0-0.045)
[2021-04-13 05:14] LABS: Partial Thromboplastin Ratio 1.3; Partial Thromboplastin Time 32.9 Seconds (21.0-31.0); Prothrombin Time 19.4 Seconds (9.0-12.0)
--- NOTE | 2021-04-13 05:36 | Emergency Department Note ---
Impression & Plan CHF (congestive heart failure) Admit to the [facility] service ED Provider Note NAME: JONATHAN PROCTOR AGE: 89 SEX: M ARRIVES VIA: Ambulance INFORMANT: Patient ED PROVIDER(S): Giselle Luna DO CHIEF COMPLAINT: Shortness of breath PLAN: Disposition: Admit to the [facility] Condition: Fair MEDICAL DECISION MAKING: This is an 89-year-old male patient who presents emergency department with orthopnea. The patient registered O2 saturations in the high 80s at home on room air. He describes seeing his PCP on Wednesday in the office. She increased his dose of Lasix and told him to start wearing compression hose. He awoke tonight with orthopnea. He got out of bed and try to walk around and became increasingly short of breath. Chest x-ray showed evidence of worsening congestive heart failure. Triage Nursing notes reviewed and agree with them. Prior medical records reviewed Vital Signs: reviewed and remarkable for hypertension Differential diagnosis: Congestive heart failure, COVID-19, pneumonia ER treatment provided: IV Lasix Diagnostics interpreted by me: ECG: Ventricular paced rhythm at 96 bpm with PVCs. There are no obvious signs of ischemia. Cardiac Monitoring: Paced rhythm at 93. Laboratory studies: See below Imaging studies: As per my interpretation Chest x-ray: Congestive heart failure that has worsened in comparison to the x- ray from March 31. HPI: 89/M arrives for evaluation of shortness of breath. The patient awoke feeling short of breath and checked his pulse ox and found to be in the mid to high 80s. He notes that when he lays flat he feels more short of breath. Patient described this to his PCP on Wednesday and they told him to double his dose of Lasix( two 20 mg tablets) and start wearing compression hose. ROS: See above HPI for pertinent positives & negatives. A total of 10 systems reviewed and were otherwise negative. PAST MEDICAL HISTORY:See Below PAST SURGICAL HISTORY:See Below FAMILY HISTORY:See Below SOCIAL HISTORY:See Below HOME MEDICATIONS:See list ALLERGIES:See list VITALS:See Below PHYSICAL EXAMINATION: HEENT: Head - normocephalic and atraumatic Pupils are equal, round, and reactive to light. Extraocular eye muscles are intact, and sclera are anicteric. Nose - moist nasal mucosa without discharge. Mouth - moist buccal mucosa. Oropharynx is nonerythematous and there is no tonsillar exudate or edema noted. Neck: Supple; no no JVD appreciated Heart: Regular rate and rhythm. There is a normal S1 and S2 with no murmurs, clicks, or gallops appreciated. Lungs: Diffuse rales in all lung wilson Abdomen: Soft, completely nontender, mildly distended, with good bowel sounds. There are no palpable pulsatile masses or hepatosplenomegaly. There is no guarding, rigidity, or rebound noted. Extremities: 1+ pitting edema there are easily palpable peripheral pulses. Skin: Pale, warm and dry with good turgor and no rashes. ED COURSE: Times/Reassessments: 0500: The patient was evaluated in room A 11. A complete history and physical was performed. Previous electronic medical records were reviewed. An order was placed for continuous cardiac monitoring. Was in a paced rhythm at 93. A twelve-lead EKG was obtained as described above. A portable chest x-ray was performed. The patient was placed on supplemental oxygen. He states that he felt somewhat better. He was given 40 mg of IV Lasix. I discussed the case with Dr. Callaway. He will evaluate the patient for further management. Giselle Luna DO Past Med/Surg History Medical History Atrial fibrillation Chronic diastolic (congestive) heart failure CKD (chronic kidney disease) stage 3, GFR 30-59 ml/min Generalized weakness History of left heart catheterization "1995; no CAD" HTN (hypertension) Hyperlipidemia Pacemaker SOB (shortness of breath) Tachy-saray syndrome "s/p pacemaker insertion 2005" V tach Surgical History History of appendectomy History of cholecystectomy Family History Other Colon cancer Coronary heart disease Prostate cancer Social History Smoking Status: Never smoker Second Hand Exposure: No; Hx Alcohol Use: No Hx Substance Use: No Preferred Language: [place] Communication Ability: Effective 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 Beliefs That Will Affect Care: None marital status: Current Living Situation: Spouse and Family current occupational status: retired Other Information That Helps Us Care for You: No Feels Safe at Home: Yes Safety Concerns: Feels Safe At This Time Assistive Devices: None Allergies Allergies Allergy/AdvReac Type Severity Reaction Status Date / Time coffee (Coffea arabica) Allergy Severe SWELLING Verified 04/13/21 06:54 OF LIPS AND HIVES Penicillins AdvReac Intermediate GIVES Verified 04/13/21 07:03 PATIENT THRUSH meperidine AdvReac Mild LIGHTHEADED Verified 04/13/21 07:03 NESS Home Meds Home Medications Medication Instructions Recorded Confirmed ascorbic acid (vitamin C) 500 mg 500 mg PO QDL 04/15/18 04/13/21 tablet (Vitamin C) cholecalciferol (vitamin D3) 25 2,000 unit PO QDL 04/15/18 04/13/21 mcg (1,000 unit) capsule (Vitamin D3) jeagepqv-utp-kubyf acid 0.4 1 tab PO QDL 04/15/18 04/13/21 mg-lycopene 300 mcg-lutein 250 mcg tablet (Centrum Silver) simvastatin 10 mg tablet 10 mg PO PM 04/15/18 04/13/21 metoprolol tartrate 50 mg tablet 50 - 75 mg PO AMPM 05/04/18 04/13/21 amlodipine 2.5 mg tablet 2.5 mg PO QAM 04/10/19 04/13/21 krill 500 mg-omega 3 115 mg-dha 30 1 cap PO QDL 04/10/19 04/13/21 mg-epa 64 yy-rzczpku-jroeb capsule (MegaRed [place]-3 Krill Oil) sennosides 8.6 mg tablet 8.6 mg PO Q OTHER DAY 04/10/19 04/13/21 warfarin 2.5 mg tablet 2.5 mg PO SUTUTHSA 04/10/19 04/13/21 warfarin 2.5 mg tablet 5 mg PO MOWEFR 04/10/19 04/13/21 furosemide 20 mg tablet 20 mg PO QAM 03/31/21 04/13/21 ferrous sulfate 325 mg (65 mg 325 mg PO BID 04/13/21 04/13/21 iron) tablet (FeroSul) iron,carbonyl 65 mg-vitamin C 125 1 tab PO BID 04/13/21 04/13/21 mg tablet,delayed release (Vitron-C) Previous Rx's Medication Instructions Recorded pantoprazole 40 mg tablet,delayed 40 mg PO BID #60 tab 04/04/21 release Results & Data (ED) Vital Signs Vital Signs - 24 hr 04/13/21 04:09 04/13/21 04:15 04/13/21 04:30 Temperature 36.8 C Temperature Source Oral Pulse Rate 91 H 109 H Pulse Rate from SpO2 Sensor 110 H Pulse Rhythm Regular Respiratory Rate 20 15 Respiratory Effort / Characteristics Non-Labored Spontaneous Non-Labored Spontaneous Respiratory Depth Normal Normal Respiratory Pattern Regular Regular Blood Pressure 137/89 130/95 Blood Pressure Mean 105 106 Blood Pressure Position Lying Pulse Oximetry 97 95 Oxygen Delivery Method Room Air Room Air Room Air Sepsis Recent Fever Within 48 Hours No Sepsis New/Unexplained Change in Mental Status No Sepsis Action Taken by Nursing No Action Required Oxygen Flow Rate - Titration 95 04/13/21 04:33 04/13/21 05:00 04/13/21 05:31 Temperature Temperature Source Pulse Rate 93 H 107 H Pulse Rate from SpO2 Sensor 89 98 H Pulse Rhythm Respiratory Rate 20 16 17 Respiratory Effort / Characteristics Non-Labored Spontaneous Respiratory Depth Respiratory Pattern Blood Pressure 146/79 H 156/102 H Blood Pressure Mean 101 120 Blood Pressure Position Pulse Oximetry 95 92 95 Oxygen Delivery Method Room Air Sepsis Recent Fever Within 48 Hours Sepsis New/Unexplained Change in Mental Status Sepsis Action Taken by Nursing Oxygen Flow Rate - Titration 04/13/21 06:00 04/13/21 06:30 04/13/21 07:01 Temperature Temperature Source Pulse Rate 90 80 105 H Pulse Rate from SpO2 Sensor 88 94 H 111 H Pulse Rhythm Respiratory Rate 16 16 21 Respiratory Effort / Characteristics Respiratory Depth Respiratory Pattern Blood Pressure 164/105 H 162/93 H 192/128 H Blood Pressure Mean 124 116 149 Blood Pressure Position Pulse Oximetry 92 94 96 Oxygen Delivery Method Room Air Sepsis Recent Fever Within 48 Hours Sepsis New/Unexplained Change in Mental Status Sepsis Action Taken by Nursing Oxygen Flow Rate - Titration 04/13/21 07:17 Temperature Temperature Source Pulse Rate 105 H Pulse Rate from SpO2 Sensor Pulse Rhythm Respiratory Rate Respiratory Effort / Characteristics Respiratory Depth Respiratory Pattern Blood Pressure 182/125 H Blood Pressure Mean Blood Pressure Position Pulse Oximetry Oxygen Delivery Method Sepsis Recent Fever Within 48 Hours Sepsis New/Unexplained Change in Mental Status Sepsis Action Taken by Nursing Oxygen Flow Rate - Titration Laboratory Data Result diagrams: 04/13/21 03:55 04/13/21 03:55 Lab Results 04/13/21 04/13/21 04/13/21 Range/Units 03:55 03:55 03:55 WBC 6.10 (4.8-10.8) K/uL RBC 3.30 L (4.7-6.1) M/uL Hgb 9.1 L (14.0-18.0) g/dL Hct 29.3 L (42-52) % MCV 88.8 (80-100) fL MCH 27.6 (25-34) pg MCHC 31.1 L (32-36) g/dL RDW Std Deviation 51.9 H (36.4-46.3) fL RDW Coeff of Klever 16.3 H (11.5-14.5) % Plt Count 317 (130-400) K/uL MPV 10.9 H (7.4-10.4) fL Immature Gran % (Auto) 0.2 % Neut % (Auto) 71.3 % Lymph % (Auto) 12.3 % [place] % (Auto) 13.3 % Eos % (Auto) 2.6 % Baso % (Auto) 0.3 % Neut # (Auto) 4.35 (1.4-6.5) K/uL Lymph # (Auto) 0.75 L (1.2-3.4) K/uL [place] # (Auto) 0.81 H (0.11-0.59) K/uL Eos # (Auto) 0.16 (0-0.5) K/uL Baso # (Auto) 0.02 (0-0.2) K/uL Immature Gran # (Auto) 0.01 (0.00-0.02) K/uL PT 19.4 H (9.0-12.0) Seconds INR 2.0 H (0.9-1.1) APTT 32.9 H (21.0-31.0) Seconds PTT Ratio 1.3 Sodium 141 (136-145) mmol/L Potassium 4.0 (3.5-5.1) mmol/L Chloride 108 H (98-107) mmol/L Carbon Dioxide 27 (21-32) mmol/L Anion Gap 6.0 (3-11) BUN 24 H (7-18) mg/dl Creatinine 1.22 (0.6-1.4) mg/dl Est Cr Clr Drug Dosing 49.4 ml/min Est GFR ( Amer) 60.5 ml/min Est GFR (Non-Af Amer) 52.2 ml/min BUN/Creatinine Ratio 19.7 (10-20) Glucose 110 H (70-99) mg/dl Calcium 8.1 L (8.5-10.1) mg/dl Magnesium 2.2 (1.8-2.4) mg/dl Total Bilirubin 0.3 (0.2-1) mg/dl AST 17 (15-37) U/L ALT 16 (12-78) U/L Alkaline Phosphatase 94 (45-117) U/L Troponin I < 0.015 (0-0.045) ng/ml Total Protein 6.2 L (6.4-8.2) gm/dl Albumin 3.1 L (3.4-5.0) gm/dl Globulin 3.1 (2.5-4.0) gm/dl Albumin/Globulin Ratio 1.0 (0.9-2) TSH 3.250 (0.300-4.500) uIu/ml COVID-19 Eval Order SARS-CoV-2 (PCR) (Negative) 04/13/21 04/13/21 Range/Units 06:45 06:45 WBC (4.8-10.8) K/uL RBC (4.7-6.1) M/uL Hgb (14.0-18.0) g/dL Hct (42-52) % MCV (80-100) fL MCH (25-34) pg MCHC (32-36) g/dL RDW Std Deviation (36.4-46.3) fL RDW Coeff of Klever (11.5-14.5) % Plt Count (130-400) K/uL MPV (7.4-10.4) fL Immature Gran % (Auto) % Neut % (Auto) % Lymph % (Auto) % [place] % (Auto) % Eos % (Auto) % Baso % (Auto) % Neut # (Auto) (1.4-6.5) K/uL Lymph # (Auto) (1.2-3.4) K/uL [place] # (Auto) (0.11-0.59) K/uL Eos # (Auto) (0-0.5) K/uL Baso # (Auto) (0-0.2) K/uL Immature Gran # (Auto) (0.00-0.02) K/uL PT (9.0-12.0) Seconds INR (0.9-1.1) APTT (21.0-31.0) Seconds PTT Ratio Sodium (136-145) mmol/L Potassium (3.5-5.1) mmol/L Chloride (98-107) mmol/L Carbon Dioxide (21-32) mmol/L Anion Gap (3-11) BUN (7-18) mg/dl Creatinine (0.6-1.4) mg/dl Est Cr Clr Drug Dosing ml/min Est GFR ( Amer) ml/min Est GFR (Non-Af Amer) ml/min BUN/Creatinine Ratio (10-20) Glucose (70-99) mg/dl Calcium (8.5-10.1) mg/dl Magnesium (1.8-2.4) mg/dl Total Bilirubin (0.2-1) mg/dl AST (15-37) U/L ALT (12-78) U/L Alkaline Phosphatase (45-117) U/L Troponin I (0-0.045) ng/ml Total Protein (6.4-8.2) gm/dl Albumin (3.4-5.0) gm/dl Globulin (2.5-4.0) gm/dl Albumin/Globulin Ratio (0.9-2) TSH (0.300-4.500) uIu/ml COVID-19 Eval Order Covid19 at [facility] SARS-CoV-2 (PCR) NEGATIVE (Negative) Administered Medications Ferrous Sulfate (Ferrous Sulfate 325 Mg Tab) 325 mg PO BID DAI Stop: 05/13/21 12:59 Last Admin: 04/13/21 13:58 Dose: 325 mg Documented by: [id number] Multivitamins (Multivitamin Tab) 1 tab PO QDL DAI Stop: 05/13/21 12:59 Last Admin: 04/13/21 13:58 Dose: 1 tab Documented by: [id number] Pantoprazole Sodium (Pantoprazole 40 Mg Tab) 40 mg PO BID DAI Stop: 05/13/21 12:28 Last Admin: 04/13/21 13:58 Dose: 40 mg Documented by: [id number] Potassium Chloride (Potassium Chloride Crtab 20 Meq Tabcr) 20 meq PO DAILY DAI Stop: 05/13/21 12:59 Last Admin: 04/13/21 13:58 Dose: 20 meq Documented by: [id number] Discontinued Medications Amlodipine Besylate (Amlodipine Besylate 5 Mg Tab) 2.5 mg PO NOW STA Stop: 04/13/21 07:20 Last Admin: 04/13/21 08:15 Dose: 2.5 mg Documented by: [id number] Furosemide (Furosemide 40 Mg/4 Ml Vial) 40 mg IV NOW STA Stop: 04/13/21 06:07 Last Admin: 04/13/21 06:22 Dose: 40 mg Documented by: [id number] Furosemide 40 mg/ Syringe 4 mls @ 4 mls/min IV NOW ONE Stop: 04/13/21 13:31 Last Admin: 04/13/21 13:58 Dose: 4 mls/min Documented by: [id number] Metoprolol Tartrate (Metoprolol Tartrate 1 Mg/Ml Vial) 5 mg IV NOW STA Stop: 04/13/21 07:07 Last Admin: 04/13/21 07:17 Dose: 5 mg Documented by: [id number] Metoprolol Tartrate (Metoprolol Tartrate 50 Mg Tab) 50 mg PO NOW ONE Stop: 04/13/21 14:01 Last Admin: 04/13/21 13:58 Dose: 50 mg Documented by: [id number] Imaging Data Radiologist's Impression: Chest X-Ray 04/13/21 04:31 SINGLE VIEW CHEST CLINICAL HISTORY: Dyspnea. FINDINGS: An AP, portable, upright chest radiograph is compared to study dated 03/31/2021. The a 2-lead cardiac pacemaker is unchanged in position. The heart is enlarged noting atherosclerotic calcification of the thoracic aorta. There is pulmonary vascular congestion. Bilateral airspace opacities are noted. There are small pleural effusions with dependent consolidation. No pneumothorax is seen. The skeletal structures are osteopenic. The bony thorax is grossly intact. IMPRESSION: 1. Cardiomegaly and cardiac pacemaker with evidence of congestive failure. 2. Bilateral airspace opacities likely represent pulmonary edema. Correlate clinically for evidence of a superimposed infectious/inflammatory pneumonitis. 3. Small pleural effusions with dependent consolidation. ACT 112: Negative or not required by law. Electronically signed by: Lewis Dozier M.D. 04/13/2021 6:19 AM Discharge Plan Visit Data Chief Complaint: Shortness of Breath/Dyspnea Stated Complaint: SOB ED Provider: Giselle Luna Discharge Problem: CHF (congestive heart failure) Patient Disposition: Admitted As Inpatient Discharge Instructions Interventions: ED Discharge Assessment Last Done: 04/13/21 12:03 Discharge Problem: CHF (congestive heart failure) Qualifiers: Heart failure type: unspecified Heart failure chronicity: acute Qualified Code(s): I50.9 - Heart failure, unspecified
[2021-04-13] MEDS ORDERED: FUROSEMIDE 40 MG/4 ML VIAL IV STA (06:06)
--- NOTE | 2021-04-13 06:20 | XRay Report ---
SINGLE VIEW CHEST CLINICAL HISTORY: Dyspnea. FINDINGS: An AP, portable, upright chest radiograph is compared to study dated 03/31/2021. The a 2-liliane d cardiac pacemaker is unchanged in position. The heart is enlarged noting atherosclerotic calcificat ion of the thoracic aorta. There is pulmonary vascular congestion. Bilateral airspace opacities are n oted. There are small pleural effusions with dependent consolidation. No pneumothorax is seen. The sk eletal structures are osteopenic. The bony thorax is grossly intact. IMPRESSION: 1. Cardiomegaly and cardiac pacemaker with evidence of congestive failure. 2. Bilateral airspace opacities likely represent pulmonary edema. Correlate clinically for evidence o f a superimposed infectious/inflammatory pneumonitis. 3. Small pleural effusions with dependent consolidation. ACT 112: Negative or not required by law. Electronically signed by: Lewis Dozier M.D. 04/13/2021 6:19 AM
[2021-04-13] MEDS ORDERED: METOPROLOL TARTRATE 1 MG/ML VIAL IV STA (07:06)
--- NOTE | 2021-04-13 07:06 | History & Physical Report ---
Date of Service April 13, 2021 Assessment & Plan (1) Decompensated heart failure: Plan: hx chronic diastolic heart failure (EF 60 to 65%, TTE 2020) ? 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 Coumadin INR goal between 2-3 Full code Text document was generated using [employer] recognition software. It may contain grammatical or spelling errors. Kindly contact undersigned for clarification of any documentation item in question. History of Present Illness Chief Complaint: Shortness of breath, orthopnea Primary Care Provider: Rambo Castro DO History obtained from patient and records. Medical history significant for chronic diastolic heart failure (EF 60 to 65%, TTE 2020), SSS sp PPM on Coumadin, ILD/pulmonary hypertension as per records, valvular heart disease (mild /mild MR/mild TR), paroxysmal VT as per records, chronic anemia (baseline hemoglobin 8-9). Last confinement 2 weeks ago for UGI B secondary to gastric ulcer status post cautery. Patient Coumadin resumed on discharge. A few days after discharge patient noted shortness of breath usually worse on exertion. No chest pain, no cough, no unusual leg swelling. Weight stable at home as per patient. Patient compliant with home meds. Denies dietary indiscretion. No unusual stress at home. Patient does not check blood pressure at home. Patient seen at PCPs office for follow-up 4 days ago. Dizziness, chest pressure, low BP complaints as per provider note. SBP at the office was 80s. 1-2 pitting edema of the lower extremities on provider exam. Patient told to hold amlodipine temporarily. Outpatient CXR showed atelectasis with probable trace effusions. Patient later on told to take additional Lasix at home. Outpatient pacemaker interrogation showed 5531V HR episodes (longest is 32 minutes and 31 seconds with a ventricular rate of 187 bpm) otherwise normal single-chamber pacemaker function with stable pacing and sensing thresholds. Battery nearing elective replacement voltage. This morning, patient woke up with worsening shortness of breath and orthopnea. No chest pain. No cough symptoms. At the ER, patient received Lasix for CHF. SBP 180s at the ER at one point. 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 Allergies Allergy/AdvReac Type Severity Reaction Status Date / Time coffee (Coffea arabica) Allergy Severe SWELLING Verified 04/13/21 06:54 OF LIPS AND HIVES Penicillins AdvReac Intermediate GIVES Verified 04/13/21 07:03 PATIENT THRUSH meperidine AdvReac Mild LIGHTHEADED Verified 04/13/21 07:03 NESS Home Medications Medication Instructions Recorded Confirmed Type ascorbic acid (vitamin C) 500 mg 500 mg PO QDL 04/15/18 04/13/21 History tablet (Vitamin C) cholecalciferol (vitamin D3) 25 2,000 unit PO QDL 04/15/18 04/13/21 History mcg (1,000 unit) capsule (Vitamin D3) hrbqyssi-mmh-ljfxv acid 0.4 1 tab PO QDL 04/15/18 04/13/21 History mg-lycopene 300 mcg-lutein 250 mcg tablet (Centrum Silver) simvastatin 10 mg tablet 10 mg PO PM 04/15/18 04/13/21 History metoprolol tartrate 50 mg tablet 50 - 75 mg PO AMPM 05/04/18 04/13/21 History amlodipine 2.5 mg tablet 2.5 mg PO QAM 04/10/19 04/13/21 History krill 500 mg-omega 3 115 mg-dha 30 1 cap PO QDL 04/10/19 04/13/21 History mg-epa 64 my-yjikaqi-emgtv capsule (MegaRed [place]-3 Krill Oil) sennosides 8.6 mg tablet 8.6 mg PO Q OTHER DAY 04/10/19 04/13/21 History warfarin 2.5 mg tablet 2.5 mg PO SUTUTHSA 04/10/19 04/13/21 History warfarin 2.5 mg tablet 5 mg PO MOWEFR 04/10/19 04/13/21 History furosemide 20 mg tablet 20 mg PO QAM 03/31/21 04/13/21 History pantoprazole 40 mg tablet,delayed 40 mg PO BID #60 tab 04/04/21 04/13/21 Rx release ferrous sulfate 325 mg (65 mg 325 mg PO BID 04/13/21 04/13/21 History iron) tablet (FeroSul) iron,carbonyl 65 mg-vitamin C 125 1 tab PO BID 04/13/21 04/13/21 History mg tablet,delayed release (Vitron-C) Past Med/Surg History Medical History Atrial fibrillation Chronic diastolic (congestive) heart failure CKD (chronic kidney disease) stage 3, GFR 30-59 ml/min Generalized weakness History of left heart catheterization "1995; no CAD" HTN (hypertension) Hyperlipidemia Pacemaker SOB (shortness of breath) Tachy-saray syndrome "s/p pacemaker insertion 2005" V tach Surgical History History of appendectomy History of cholecystectomy Family History Other Colon cancer Coronary heart disease Prostate cancer Social History Smoking Status: Never smoker Second Hand Exposure: No; Hx Alcohol Use: No Hx Substance Use: No Preferred Language: Bulgarian Communication Ability: Effective Ancillary Services Manager Required: No Beliefs That Will Affect Care: None marital status: Current Living Situation: Spouse and Family current occupational status: retired Feels Safe at Home: Yes Assistive Devices: Walker Review of Systems Review of Systems: As per HPI, all 10 systems reviewed, all other ROS negative Physical Exam Physical Exam: GENERAL: Slightly uncomfortable, no respiratory distress SKIN: Pallor, warm HEENT: Bespectacled, pale palpebral conjunctivae, no ptosis, dry buccal mucosa NECK : Supple, no tenderness CHEST : Decreased breath sounds, no tenderness HEART : RRR, systolic murmur over left sternal border ABDOMEN: Some distention, nontender EXTREMITIES : Minimal LE swelling, no LE tenderness, no other conspicuous deformities noted NEUROLOGIC : Coherent, no facial asymmetry, no other gross focality Results & Data Results & Data ([facility]) Vital Signs (Past 12 Hours) Vital Signs Temp Pulse Resp BP Pulse Ox 04/13/21 06:30 80 16 162/93 H 94 04/13/21 06:00 90 16 164/105 H 92 04/13/21 05:31 107 H 17 156/102 H 95 04/13/21 05:00 93 H 16 146/79 H 92 04/13/21 04:33 20 95 04/13/21 04:30 109 H 15 130/95 95 04/13/21 04:09 36.8 C 91 H 20 137/89 97 Laboratory Results Laboratory Results WBC 6.10 K/uL (4.8-10.8) 04/13/21 03:55 RBC 3.30 M/uL (4.7-6.1) L 04/13/21 03:55 Hgb 9.1 g/dL (14.0-18.0) L 04/13/21 03:55 Hct 29.3 % (42-52) L 04/13/21 03:55 MCV 88.8 fL (80-100) 04/13/21 03:55 MCH 27.6 pg (25-34) 04/13/21 03:55 MCHC 31.1 g/dL (32-36) L 04/13/21 03:55 RDW Std Deviation 51.9 fL (36.4-46.3) H 04/13/21 03:55 RDW Coeff of Klever 16.3 % (11.5-14.5) H 04/13/21 03:55 Plt Count 317 K/uL (130-400) 04/13/21 03:55 MPV 10.9 fL (7.4-10.4) H 04/13/21 03:55 Immature Gran % (Auto) 0.2 % 04/13/21 03:55 Neut % (Auto) 71.3 % 04/13/21 03:55 Lymph % (Auto) 12.3 % 04/13/21 03:55 Bureau % (Auto) 13.3 % 04/13/21 03:55 Eos % (Auto) 2.6 % 04/13/21 03:55 Baso % (Auto) 0.3 % 04/13/21 03:55 Neut # (Auto) 4.35 K/uL (1.4-6.5) 04/13/21 03:55 Lymph # (Auto) 0.75 K/uL (1.2-3.4) L 04/13/21 03:55 [place] # (Auto) 0.81 K/uL (0.11-0.59) H 04/13/21 03:55 Eos # (Auto) 0.16 K/uL (0-0.5) 04/13/21 03:55 Baso # (Auto) 0.02 K/uL (0-0.2) 04/13/21 03:55 Immature Gran # (Auto) 0.01 K/uL (0.00-0.02) 04/13/21 03:55 PT 19.4 Seconds (9.0-12.0) H 04/13/21 03:55 INR 2.0 (0.9-1.1) H 04/13/21 03:55 APTT 32.9 Seconds (21.0-31.0) H 04/13/21 03:55 PTT Ratio 1.3 04/13/21 03:55 Sodium 141 mmol/L (136-145) 04/13/21 03:55 Potassium 4.0 mmol/L (3.5-5.1) 04/13/21 03:55 Chloride 108 mmol/L (98-107) H 04/13/21 03:55 Carbon Dioxide 27 mmol/L (21-32) 04/13/21 03:55 Anion Gap 6.0 (3-11) 04/13/21 03:55 BUN 24 mg/dl (7-18) H 04/13/21 03:55 Creatinine 1.22 mg/dl (0.6-1.4) 04/13/21 03:55 Est Cr Clr Drug Dosing 49.4 ml/min 04/13/21 03:55 Est GFR ( Amer) 60.5 ml/min 04/13/21 03:55 Est GFR (Non-Af Amer) 52.2 ml/min 04/13/21 03:55 BUN/Creatinine Ratio 19.7 (10-20) 04/13/21 03:55 Glucose 110 mg/dl (70-99) H 04/13/21 03:55 Calcium 8.1 mg/dl (8.5-10.1) L 04/13/21 03:55 Magnesium 2.2 mg/dl (1.8-2.4) 04/13/21 03:55 Total Bilirubin 0.3 mg/dl (0.2-1) 04/13/21 03:55 AST 17 U/L (15-37) 04/13/21 03:55 ALT 16 U/L (12-78) 04/13/21 03:55 Alkaline Phosphatase 94 U/L (45-117) 04/13/21 03:55 Troponin I < 0.015 ng/ml (0-0.045) 04/13/21 03:55 Total Protein 6.2 gm/dl (6.4-8.2) L 04/13/21 03:55 Albumin 3.1 gm/dl (3.4-5.0) L 04/13/21 03:55 Globulin 3.1 gm/dl (2.5-4.0) 04/13/21 03:55 Albumin/Globulin Ratio 1.0 (0.9-2) 04/13/21 03:55 COVID-19 Eval Order Covid19 at [facility] 04/13/21 06:45 Impressions Chest X-Ray 04/13/21 04:31 SINGLE VIEW CHEST CLINICAL HISTORY: Dyspnea. FINDINGS: An AP, portable, upright chest radiograph is compared to study dated 03/31/2021. The a 2-lead cardiac pacemaker is unchanged in position. The heart is enlarged noting atherosclerotic calcification of the thoracic aorta. There is pulmonary vascular congestion. Bilateral airspace opacities are noted. There are small pleural effusions with dependent consolidation. No pneumothorax is seen. The skeletal structures are osteopenic. The bony thorax is grossly intact. IMPRESSION: 1. Cardiomegaly and cardiac pacemaker with evidence of congestive failure. 2. Bilateral airspace opacities likely represent pulmonary edema. Correlate clinically for evidence of a superimposed infectious/inflammatory pneumonitis. 3. Small pleural effusions with dependent consolidation. ACT 112: Negative or not required by law. Electronically signed by: Lewis Dozier M.D. 04/13/2021 6:19 AM Diagnostic Findings EKG as per my interpretation: Rate 95, paced rhythm
[2021-04-13] MEDS ORDERED: amLODIPine BESYLATE 5 MG TAB PO STA (07:19)
[2021-04-13] MEDS ORDERED: NITROGLYCERIN SL 0.4 MG/TAB TAB SL PRN (12:29)
[2021-04-13] MEDS ORDERED: traMADol HCL 50 MG TABLET PO PRN (12:29)
[2021-04-13] MEDS ORDERED: LEVALBUTEROL 1.25MG/0.5ML NEB INH PRN (12:29)
[2021-04-13] MEDS ORDERED: NON-FORMULARY MEDICATION (Iron,Carbonyl-Vitamin C [Vitron-C] 65 mg iron- 125 mg tablet,del PO SCH (12:29)
[2021-04-13] MEDS ORDERED: PROMETHAZINE HCL 12.5 MG in SODIUM CHLORIDE 0.9% 50 ML IV PRN (12:29)
[2021-04-13] MEDS ORDERED: IPRATROPIUM BROMIDE NEB SOLN 0.02% 2.5 ML VIAL INH PRN (12:29)
[2021-04-13] MEDS ORDERED: XOPENEX/ATROVENT 1.25mg/0.5MG NEB COMBO NEB PRN (12:29)
[2021-04-13] MEDS ORDERED: ACETAMINOPHEN 325 MG TAB PO PRN (12:29)
[2021-04-13] MEDS ORDERED: FUROSEMIDE 40 MG in SYRINGE 0 ML IV ONE (13:30)
[2021-04-13] MEDS: MULTIVITAMIN TAB PO SCH (13:58)
[2021-04-13] MEDS: PANTOprazole 40 MG TAB PO SCH ×2 (13:58→19:33)
[2021-04-13] MEDS: FERROUS SULFATE 325 MG TAB PO SCH ×2 (13:58→20:49)
[2021-04-13] MEDS: POTASSIUM CHLORIDE CRTAB 20 MEQ TABCR PO SCH (13:58)
[2021-04-13] MEDS ORDERED: METOPROLOL TARTRATE 50 MG TAB PO ONE (14:00)
--- NOTE | 2021-04-13 14:01 | Cardiology Consultation ---
Date of Consultation April 13, 2021 Assessment & Plan (1) Decompensated heart failure: Pt received furosemide 40 mg IV x 1 at 6 am, and another dose is due to be administered now. Will reassess clinically on 04/14 prior to 3rd dose. Echo in 03/2019 revealed LVEF 60-65%, mild MR, Mild TR, Mild , severe pulm HTN, PASP 70 mm Hg. I do not feel this needs to be repeated at present. (2) Atrial fibrillation: Hgb is stable. Continue coumadin. Ventricular rates in range of 96-118 bpm at present, however, missed am metoprolol dose. Usually takes metoprolol tartrate 75 mg in am , 50 mg in pm. Will administer 50 mg dose x 1 now, and then usual pm dose tonight. History of Present Illness Attending Physician: Spike Gonzalez MD History of Present Illness Jame Kevin is a 89 year old male seen in cardiology consultation per the request of Dr Brothers for the evaluation of acute on chronic diastolic heart tee lure and atrial fibrillation with rapid ventricular response. 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 I had seen him in inpatient consultation a year ago, in March,. Jame was recently hospitalized in March, with findings of a large hiatal hernia, and an upper GI bleed due to a 10 mm gastric ulcer found on EGD addressed with bipolar cautery and 2 hemostatic clips on 04/01/21. Per GI recommendations Coumadin was resumed 3 days later. At time of recent outpatient anticoagulation clinic follow up , his INR remained below goal at 1.3. A recent outpatient pacemaker check revealed episode of high ventricular heart rates for which outpatient follow up was planned for tomorrow , 04/14. In the meantime , pt developed acute dyspnea at 230 am. He states he already felt better by the time the ambulance arrived. 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 Cardiology Problem List: 1. Past paroxysmal, now chronic atrial fibrillation 2. 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 Most recent generator change in 2012 with transition to a single-chamber device functioning in a VVIR mode 3. 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 Hypertension 5. Dyslipidemia 6. History of diastolic heart failure. Allergies Allergy/AdvReac Type Severity Reaction Status Date / Time coffee (Coffea arabica) Allergy Severe SWELLING Verified 04/13/21 06:54 OF LIPS AND HIVES Penicillins AdvReac Intermediate GIVES Verified 04/13/21 07:03 PATIENT THRUSH meperidine AdvReac Mild LIGHTHEADED Verified 04/13/21 07:03 NESS Home Medications Medication Instructions Recorded Confirmed Type ascorbic acid (vitamin C) 500 mg 500 mg PO QDL 04/15/18 04/13/21 History tablet (Vitamin C) cholecalciferol (vitamin D3) 25 2,000 unit PO QDL 04/15/18 04/13/21 History mcg (1,000 unit) capsule (Vitamin D3) foniczpw-hir-ycpju acid 0.4 1 tab PO QDL 04/15/18 04/13/21 History mg-lycopene 300 mcg-lutein 250 mcg tablet (Centrum Silver) simvastatin 10 mg tablet 10 mg PO PM 04/15/18 04/13/21 History metoprolol tartrate 50 mg tablet 50 - 75 mg PO AMPM 05/04/18 04/13/21 History amlodipine 2.5 mg tablet 2.5 mg PO QAM 04/10/19 04/13/21 History krill 500 mg-omega 3 115 mg-dha 30 1 cap PO QDL 04/10/19 04/13/21 History mg-epa 64 mv-fccekog-itokm capsule (MegaRed [place]-3 Krill Oil) sennosides 8.6 mg tablet 8.6 mg PO Q OTHER DAY 04/10/19 04/13/21 History warfarin 2.5 mg tablet 2.5 mg PO SUTUTHSA 04/10/19 04/13/21 History warfarin 2.5 mg tablet 5 mg PO MOWEFR 04/10/19 04/13/21 History furosemide 20 mg tablet 20 mg PO QAM 03/31/21 04/13/21 History pantoprazole 40 mg tablet,delayed 40 mg PO BID #60 tab 04/04/21 04/13/21 Rx release ferrous sulfate 325 mg (65 mg 325 mg PO BID 04/13/21 04/13/21 History iron) tablet (FeroSul) iron,carbonyl 65 mg-vitamin C 125 1 tab PO BID 04/13/21 04/13/21 History mg tablet,delayed release (Vitron-C) Patient History Medical History Atrial fibrillation Chronic diastolic (congestive) heart failure CKD (chronic kidney disease) stage 3, GFR 30-59 ml/min Generalized weakness History of left heart catheterization "1995; no CAD" HTN (hypertension) Hyperlipidemia Pacemaker SOB (shortness of breath) Tachy-saray syndrome "s/p pacemaker insertion 2005" V tach Surgical History History of appendectomy History of cholecystectomy Family History Other Colon cancer Coronary heart disease Prostate cancer Social History Smoking Status: Never smoker Second Hand Exposure: No; Hx Alcohol Use: No Hx Substance Use: No Preferred Language: Setswana Communication Ability: Effective Lining Ironer Required: No Beliefs That Will Affect Care: None marital status: Current Living Situation: Spouse and Family current occupational status: retired Other Information That Helps Us Care for You: No Feels Safe at Home: Yes Safety Concerns: Feels Safe At This Time Assistive Devices: Glasses Review of Systems Review of Systems: All systems reviewed & are unremarkable except as noted in HPI & below Physical Exam Physical Exam: Temp Pulse Resp BP Pulse Ox 36.5 C 118 H 20 116/88 94 04/13/21 12:29 04/13/21 12:29 04/13/21 12:29 04/13/21 12:29 04/13/21 12:29 Respiratory: Auscultation: lungs clear to auscultation bilaterally Cardiovascular: Rate/Rhythm: + tachycardic and + irregularly irregular Heart Sounds: + murmur (1/6 SM) Extremities: no edema Gastrointestinal (Abdomen): normal bowel sounds, soft, nontender, no hepatosplenomegaly Neurologic: PERRL, EOMI, accommodation nl, no face palsy, no dysarthria Results & Data ([facility]) Vital Signs (Past 12 Hours) Vital Signs Temp Pulse Pulse Resp BP BP Pulse Ox 04/13/21 12:29 36.5 C 118 H 20 116/88 94 04/13/21 12:03 118 H 24 132/68 98 04/13/21 11:33 115 H 18 04/13/21 11:00 147 H 25 H 107/90 90 04/13/21 10:31 97 H 14 122/80 95 04/13/21 10:01 113 H 22 128/92 94 04/13/21 09:50 36.9 C 105 H 22 132/80 94 04/13/21 09:31 98 H 21 117/79 94 04/13/21 09:01 95 H 19 157/73 H 94 04/13/21 08:30 112 H 22 157/94 H 95 04/13/21 08:17 108 H 18 161/100 H 95 04/13/21 08:00 107 H 13 166/118 H 95 04/13/21 07:30 112 H 24 156/106 H 93 04/13/21 07:17 105 H 182/125 H 04/13/21 07:01 105 H 21 192/128 H 96 04/13/21 06:30 80 16 162/93 H 94 04/13/21 06:00 90 16 164/105 H 92 04/13/21 05:31 107 H 17 156/102 H 95 04/13/21 05:00 93 H 16 146/79 H 92 04/13/21 04:33 20 95 04/13/21 04:30 109 H 15 130/95 95 04/13/21 04:09 36.8 C 91 H 20 137/89 97 Laboratory Results Cardiac Enzymes 04/13/21 Range/Units 03:55 AST 17 (15-37) U/L Troponin I < 0.015 (0-0.045) ng/ml Coagulation INR 2 04/13/21 Range/Units 03:55 PT 19.4 H (9.0-12.0) Seconds APTT 32.9 H (21.0-31.0) Seconds CBC 04/13/21 Range/Units 03:55 WBC 6.10 (4.8-10.8) K/uL RBC 3.30 L (4.7-6.1) M/uL Hgb 9.1 L (14.0-18.0) g/dL Hct 29.3 L (42-52) % Plt Count 317 (130-400) K/uL Neut # (Auto) 4.35 (1.4-6.5) K/uL Lymph # (Auto) 0.75 L (1.2-3.4) K/uL [place] # (Auto) 0.81 H (0.11-0.59) K/uL Eos # (Auto) 0.16 (0-0.5) K/uL Baso # (Auto) 0.02 (0-0.2) K/uL Comprehensive Metabolic Panel 04/13/21 Range/Units 03:55 Sodium 141 (136-145) mmol/L Potassium 4.0 (3.5-5.1) mmol/L Chloride 108 H (98-107) mmol/L Carbon Dioxide 27 (21-32) mmol/L BUN 24 H (7-18) mg/dl Creatinine 1.22 (0.6-1.4) mg/dl Glucose 110 H (70-99) mg/dl Calcium 8.1 L (8.5-10.1) mg/dl AST 17 (15-37) U/L ALT 16 (12-78) U/L Alkaline Phosphatase 94 (45-117) U/L Total Protein 6.2 L (6.4-8.2) gm/dl Albumin 3.1 L (3.4-5.0) gm/dl Intake and Output 04/12/21 04/13/21 04/13/21 22:59 06:59 14:59 Output Total 1800 / 1800 Balance -1800 / -1800 Output: Urine 1800 / 1800 Other: Weight 96.5 kg 96.5 kg Weight Measurement Method Built in [facility] Built in [facility] Patient Weight 04/14/21 06:59 Weight 96.5 kg Diagnostic Findings EKG performed 04/13/21 and reviewed independently: AF at 96 bpm with demand ventricular pacing. CXR : mild pulmonary edema, small bilateral pleural effusions
[2021-04-13] MEDS ORDERED: WARFARIN SOD 2.5 MG TAB PO SCH (16:00)
[2021-04-13] MEDS: SIMVASTATIN 10 MG TAB PO SCH (19:33)
[2021-04-13] MEDS ORDERED: METOPROLOL TARTRATE 50 MG TAB PO SCH (21:00)
--- NOTE | 2021-04-13 23:17 | Hospitalist Progress Note ---
Date of Service April 13, 2021 Assessment & Plan (1) Decompensated heart failure: Plan: Acute on chronic diastolic heart failure Present on admission with worsening SOB CXR showed cardiomegaly and cardiac pacemaker with evidence of congestive failure. Bilateral airspace opacities likely represent pulmonary edema. Received IV lasix on admission cardiology on board Continue IV diuretic as per cardiology recommended Continue monitor BMP while on IV lasix Continue monitor I/O Clinically improves Atrial fibrillation: Rate controlled on metoprolol, continue Continue coumadin HTN (hypertension): On Amlodipine and Lasix, continue metoprolol Tachy-saray syndrome: Pacemaker: no acute issues DVT prophylaxis. Coumadin INR goal between 2-3 Full code Admission and Anticipated Discharge Date Admission Date: April 13, 2021 Subjective Pt was seen and examined for follow up of SOB Sitting in chair comfortable with no distress Pt said that he feels ok He said that he has been diuresis well Denies any chest pain, palpitation, dizziness and SOB Review of Systems Review of Systems: All systems reviewed & are unremarkable except as noted in Subjective Physical Exam Physical Exam: General- No acute distress Head- atraumatic Eyes- PERRL, EOMI, ENT- oropharynx clear Neck- supple, no JVD Lungs- clear to auscultation Heart- regular rhythm; no murmur Abdomen- normal bowel sounds, soft, nontender Extremities- no calf tenderness Neuro- alert, oriented x 3; PERRL, EOMI; no facial palsy; no dysarthria Skin- warm & dry Results & Data Results & Data ([facility]) Vital Signs (Past 12 Hours) Vital Signs Temp Pulse Pulse Resp BP BP Pulse Ox 04/13/21 19:02 36.4 C L 103 H 18 108/62 93 04/13/21 16:17 36.4 C L 125 H 20 125/66 94 04/13/21 15:11 141 H 04/13/21 12:29 36.5 C 118 H 118 H 20 116/88 94 04/13/21 12:03 118 H 24 132/68 98 04/13/21 11:33 115 H 18
--- NOTE | 2021-04-14 06:10 | Electrocardiogram Report ---
Test Reason : Blood Pressure : / mmHG Vent. Rate : 096 BPM Atrial Rate : 093 BPM P-R Int : 000 ms QRS Dur : 154 ms QT Int : 436 ms P-R-T Axes : 000 -71 091 degrees QTc Int : 550 ms Ventricular-paced rhythm Atrial fibrillation Right bundle branch block Abnormal ECG When compared with ECG of 31-MAR-2021 10:26, Vent. rate has increased BY 9 BPM Confirmed by Tonio Conti ([id number]) on 04/14/2021 6:09:41 AM Referred By: REFERRED SELF Confirmed By:Tonio Conti
[2021-04-14 07:19] LABS: Basophils # (auto) 0.02 K/uL (0-0.2); Basophils % (auto) 0.3 %; Eosinophils # (auto) 0.22 K/uL (0-0.5); Eosinophils % (auto) 3.6 %; Hematocrit (blood only) 31.5 % (42-52); Hemoglobin 9.5 g/dL (14.0-18.0); Immature Granulocytes # (auto) 0.01 K/uL (0.00-0.02); Immature Granulocytes % (auto) 0.2 %; Lymphocytes # (auto) 0.78 K/uL (1.2-3.4); Lymphocytes % (auto) 12.6 %; Mean Corpuscular Hgb Conc 30.2 g/dL (32-36); Mean Corpuscular Volume 89.5 fL (80-100); Mean Platelet Volume 10.5 fL (7.4-10.4); Monocytes # (auto) 0.99 K/uL (0.11-0.59); Neutrophils # (auto) 4.16 K/uL (1.4-6.5); Neutrophils % (auto) 67.3 %; Platelet Count 317 K/uL (130-400); RDW Coefficient of Variation 16.4 % (11.5-14.5); RDW Standard Deviation 52.9 fL (36.4-46.3); Red Blood Count 3.52 M/uL (4.7-6.1); White Blood Count 6.18 K/uL (4.8-10.8)
[2021-04-14 07:28] LABS: Prothrombin Time 19.6 Seconds (9.0-12.0)
[2021-04-14 07:42] LABS: BUN Creatinine Ratio 15.5 (10-20); Calcium 8.7 mg/dl (8.5-10.1); Creatinine Clr Calc Pharmacy 45.4 ml/min; Est GFR (African American) 61.1 ml/min; Est GFR (Non-African American) 52.8 ml/min; Potassium 4.4 mmol/L (3.5-5.1)
[2021-04-14] MEDS: PANTOprazole 40 MG TAB PO SCH ×2 (08:20→20:32)
[2021-04-14] MEDS: FERROUS SULFATE 325 MG TAB PO SCH ×2 (08:21→20:32)
[2021-04-14] MEDS: METOPROLOL TARTRATE 50 MG TAB PO SCH (08:21)
[2021-04-14] MEDS: amLODIPine BESYLATE 5 MG TAB PO SCH (08:22)
[2021-04-14] MEDS ORDERED: FUROSEMIDE 40 MG/4 ML VIAL IV ONE (09:00)
[2021-04-14] MEDS ORDERED: SENNA 8.6 MG TAB PO SCH (09:00)
--- NOTE | 2021-04-14 09:37 | Cardiology Progress Note ---
Date of Service April 14, 2021 Assessment & Plan (1) Decompensated heart failure: (2) Atrial fibrillation with rapid ventricular response: (3) Iron deficiency anemia: (4) Tachy-saray syndrome: (5) Interstitial lung disease: (6) HTN (hypertension): Plan: 40 mg IV furosemide this AM Increase metoprolol to 75 mg twice a day for additional heart rate control Discontinue amlodipine IF hypotension occurs. Continue Coumadin anticoagulation and oral iron supplementation. Admission and Anticipated Discharge Date Admission Date: April 13, 2021 Supervising Physician Co-Signing Physician Notes Supervising Physician Attestation: I have personally performed a history and physical examination on the patient. I agree with the physician educational assistant's findings and plan as documented with the following additions. Subjective: Patient feeling subjectively improved. Ventricular rate improved, atrial fibrillation with demand ventricular pacing noted on telemetry, rates in the range of 80 to 90 bpm. Exam: Mildly decreased breath sounds in the bases Data: Hemoglobin 9.5 INR 2 Creatinine 1.21 Assessment and Plan: As noted above. Increased metoprolol to 75 mg twice daily. Continue IV furosemide. DVT prophylaxis: Anticoagulated with Coumadin, INR 2. Tim Berg, Subjective Patient seen and examined. Chart, medications, and telemetry reviewed. Feels some better. + Cough, dyspnea above baseline, orthopnea, right greater than left lower extremity edema that progresses throughout the day and improves overnight. INR. 2.0 I/O's negative 3,360 mL's overall Weight 96.5 kg -> 90.5 kg Telemetry: Paced. [place] fibrillation, 80's to 110 bpm. Pacer Check on 04/11/2021: VVI. RN RECOVERY 81.2%. 3 months longevity. Review of Systems Review of Systems: Complete Review of Systems is as stated above, negative, or noncontributory. Physical Exam Physical Exam: General: A&Ox3. NAD. HENT: Normocephalic. Atraumatic. Eyes: PER. Conjunctiva pink, sclera clear. Neck: + JVD. No carotid bruits. Heart: Irregular. Soft systolic murmur. No rub. PMI is nondisplaced. Lungs: Decreased. Diminished. Scattered rhonchi. Left basilar rales. Abdomen: +BS. Soft. Nontender. No masses or organomegaly. Extremities: Mild right pretibial edema. Trivial edema on the left. No clubbing. No cyanosis. Limited neurological examination is without focal deficits. Pulses: radial=2/4, posterior tibial=1/4. Results & Data ([facility]) Vital Signs (Past 12 Hours) Vital Signs Temp Pulse Pulse Resp BP Pulse Ox 04/14/21 08:05 36.5 C 97 H 19 151/77 H 96 04/14/21 03:34 36.6 C 83 18 139/66 95 04/13/21 23:35 88 04/13/21 23:25 36.6 C 88 20 129/73 95 Laboratory Results Laboratory Results - last 24 hr 04/14/21 04/14/21 04/14/21 06:28 06:28 06:28 WBC 6.18 RBC 3.52 L Hgb 9.5 L Hct 31.5 L MCV 89.5 MCH 27.0 MCHC 30.2 L RDW Std Deviation 52.9 H RDW Coeff of Klever 16.4 H Plt Count 317 MPV 10.5 H Immature Gran % (Auto) 0.2 Neut % (Auto) 67.3 Lymph % (Auto) 12.6 [place] % (Auto) 16.0 Eos % (Auto) 3.6 Baso % (Auto) 0.3 Neut # (Auto) 4.16 Lymph # (Auto) 0.78 L [place] # (Auto) 0.99 H Eos # (Auto) 0.22 Baso # (Auto) 0.02 Immature Gran # (Auto) 0.01 PT 19.6 H INR 2.0 H Sodium 140 Potassium 4.4 Chloride 106 Carbon Dioxide 28 Anion Gap 6.0 BUN 19 H Creatinine 1.21 Est Cr Clr Drug Dosing 45.4 Est GFR ( Amer) 61.1 Est GFR (Non-Af Amer) 52.8 BUN/Creatinine Ratio 15.5 Glucose 94 Calcium 8.7
[2021-04-14] MEDS: POTASSIUM CHLORIDE CRTAB 20 MEQ TABCR PO SCH (09:59)
[2021-04-14] MEDS ORDERED: FUROSEMIDE 40 MG in SYRINGE 0 ML IV ONE (10:00)
[2021-04-14] MEDS: MULTIVITAMIN TAB PO SCH (11:41)
[2021-04-14] MEDS ORDERED: WARFARIN SOD 5 MG TAB PO SCH (16:00)
[2021-04-14] MEDS ORDERED: METOPROLOL TARTRATE 25 MG TAB PO SCH (21:00)
[2021-04-14] MEDS: SIMVASTATIN 10 MG TAB PO SCH (21:23)
--- NOTE | 2021-04-15 02:28 | Hospitalist Progress Note ---
Date of Service April 14 2021 Assessment & Plan (1) Decompensated heart failure: Plan: Acute on chronic diastolic heart failure Present on admission with worsening SOB CXR showed cardiomegaly and cardiac pacemaker with evidence of congestive failure. Bilateral airspace opacities likely represent pulmonary edema. Received IV lasix on admission cardiology on board Lasix 40 mg IV given today Continue monitor BMP while on IV lasix Continue monitor I/O Continue fluid restriction 2L daily Clinically improves Atrial fibrillation: Metoprolol increased to 75mg Continue coumadin HTN (hypertension): On Amlodipine and Lasix, continue metoprolol If BP drops, consider to d/c amlodipine Tachy-saray syndrome: Pacemaker: no acute issues DVT prophylaxis. Coumadin INR goal between 2-3 Full code Disposition Possible d/c in am Admission and Anticipated Discharge Date Admission Date: April 13, 2021 Subjective Pt was seen and examined for follow up of SOB Sitting in chair comfortable with no distress Early today he was walking around the hallway with physical therapy He said that he thinks that he did well Continue to diuresis well Denies any chest pain, palpitation, dizziness and SOB Review of Systems Review of Systems: All systems reviewed & are unremarkable except as noted in Subjective Physical Exam Physical Exam: General- No acute distress Head- atraumatic Eyes- PERRL, EOMI, ENT- oropharynx clear Neck- supple, no JVD Lungs- clear to auscultation Heart- regular rhythm; no murmur Abdomen- normal bowel sounds, soft, nontender Extremities- no calf tenderness Neuro- alert, oriented x 3; PERRL, EOMI; no facial palsy; no dysarthria Skin- warm & dry Results & Data Results & Data ([facility]) Vital Signs (Past 12 Hours) Vital Signs Temp Pulse Pulse Pulse Resp BP Pulse Ox 04/14/21 23:12 36.6 C 85 20 116/67 91 04/14/21 20:20 71 155/74 H 04/14/21 19:14 37.2 C 74 19 130/64 97 04/14/21 17:00 78 04/14/21 15:51 36.5 C 77 19 130/62 97
[2021-04-15] MEDS: FERROUS SULFATE 325 MG TAB PO SCH (09:14)
[2021-04-15] MEDS: amLODIPine BESYLATE 5 MG TAB PO SCH (09:14)
[2021-04-15] MEDS: PANTOprazole 40 MG TAB PO SCH (09:14)
[2021-04-15] MEDS: METOPROLOL TARTRATE 50 MG TAB PO SCH (09:16)
[2021-04-15 09:33] LABS: INR 2.4 (0.9-1.1); Prothrombin Time 22.4 Seconds (9.0-12.0)
[2021-04-15 09:44] LABS: BUN Creatinine Ratio 16.7 (10-20); Calcium 8.5 mg/dl (8.5-10.1); Est GFR (African American) 58.8 ml/min; Est GFR (Non-African American) 50.7 ml/min; Potassium 3.8 mmol/L (3.5-5.1)
--- NOTE | 2021-04-15 09:46 | Cardiology Progress Note ---
Date of Service April 15, 2021 Assessment & Plan (1) Decompensated heart failure: (2) Atrial fibrillation with rapid ventricular response: (3) Iron deficiency anemia: (4) Tachy-saray syndrome: (5) Interstitial lung disease: (6) HTN (hypertension): (7) Ventricular tachyarrhythmia: Plan: Resume oral furosemide this AM, with supplemental potassium Discontinue amlodipine given fluid retention, to allow for titration of metoprolol tartrate. Increase metoprolol tartrate to 100 mg twice a day for additional rate control of the atrial fibrillation, and asymptomatic nonsustained ventricular tachycardia Recommend evaluation for nocturnal hypoxemia Continue Coumadin anticoagulation and oral iron supplementation. Outpatient cardiology follow-up in about 2 weeks (office aware, will call patient) Admission and Anticipated Discharge Date Admission Date: April 13, 2021 Supervising Physician Co-Signing Physician Notes Supervising Physician Attestation: I have personally performed a history and physical examination on the patient. I agree with the physician delinquent tax collector assistant's findings and plan as documented with the following additions. Subjective: Patient without complaints. States shortness of breath improved. No subjective palpitations. Telemetry findings of rate controlled atrial fibrillation for the most part in the 80s, with demand ventricular pacing. 18 beat run of nonsustained ventricular tachycardia observed during sleep, 3:55 AM. Exam: Lungs clear CV regular rhythm, 1/6 systolic murmur Data: INR 2.4 Potassium 3.8 Assessment and Plan: Problem list as noted in Mr. Hernández's note. * Titrate metoprolol to 100 mg twice daily for atrial fibrillation/NSVT * Discharged on furosemide 20 mg daily, potassium chloride 10 mEq daily * Resume Vitron-C supplementation as outpatient. * Cardiology follow-up to be arranged. * Clinical follow-up of volume status, atrial fibrillation, and anticipated need for pacemaker generator change in next 3 months. * Stable for discharge from cardiac perspective. Tim Berg, Subjective Patient seen and examined. Chart, medications, and telemetry reviewed. Feeling better overall. Dyspnea is back to baseline. Less congestion. Edema improved. No chest pain. No palpitations. No PND. INR. 2.4 I/O's negative 4,250 mL's overall Weight 96.5 kg -> 90.5 kg -> 90.9 kg Telemetry: Paced. Ono fibrillation in the 80's. 18-beat run of wide complex tachycardia, consistent with ventricular tachycardia, on 04/15/2021 at 03:55:16 (asymptomatic) Pacer Check on 04/11/2021: VVI. 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 3 months longevity. Review of Systems Review of Systems: Complete Review of Systems is as stated above, negative, or noncontributory. Physical Exam Physical Exam: General: A&Ox3. NAD. HENT: Normocephalic. Atraumatic. Eyes: PER. Conjunctiva pink, sclera clear. Neck: Normal JVD. No carotid bruits. Heart: Irregularly irregular in the 80's. Soft systolic murmur. No rub. PMI is nondisplaced. Lungs: Decreased. Diminished. Clear. Abdomen: +BS. Soft. Nontender. No masses or organomegaly. Extremities: Trivial pretibial right greater than left lower extremity edema. No clubbing. No cyanosis. Limited neurological examination is without focal deficits. Pulses: radial=2/4, posterior tibial=1/4. Results & Data ([facility]) Vital Signs (Past 12 Hours) Vital Signs Temp Pulse Pulse Resp BP Pulse Ox 04/15/21 08:00 36.4 C L 76 19 144/71 H 97 04/15/21 07:14 67 04/15/21 04:00 36.4 C L 95 H 20 120/72 95 04/15/21 03:22 36.8 C 74 18 138/74 93 04/14/21 23:12 36.6 C 85 20 116/67 91 Laboratory Results Laboratory Results - last 24 hr 04/15/21 04/15/21 08:58 08:58 PT 22.4 H INR 2.4 H Sodium 140 Potassium 3.8 Chloride 107 Carbon Dioxide 26 Anion Gap 7.0 BUN 21 H Creatinine 1.25 Est Cr Clr Drug Dosing 44.0 Est GFR ( Amer) 58.8 Est GFR (Non-Af Amer) 50.7 BUN/Creatinine Ratio 16.7 Glucose 131 H Calcium 8.5
[2021-04-15] MEDS: POTASSIUM CHLORIDE CRTAB 20 MEQ TABCR PO SCH (09:48)
[2021-04-15] MEDS ORDERED: FUROSEMIDE 20 MG TAB PO SCH (10:00)
[2021-04-15] MEDS ORDERED: POTASSIUM CHLORIDE CRTAB 20 MEQ TABCR PO STA (10:31)
[2021-04-15] MEDS: MULTIVITAMIN TAB PO SCH (11:08)
--- NOTE | 2021-04-15 13:10 | Hospitalist Progress Note ---
Date of Service April 15, 2021 Assessment & Plan (1) Decompensated heart failure: Plan: Acute on chronic diastolic heart failure Present on admission with worsening SOB CXR showed cardiomegaly and cardiac pacemaker with evidence of congestive failure. Bilateral airspace opacities likely represent pulmonary edema. Received IV lasix on admission cardiology on board cardiology on board recommended lasix 20mg daily with potassium 10meq daily Continue monitor BMP while on IV lasix Continue monitor I/O Continue fluid restriction 2L daily Clinically improves Ok from cardiology standpoint to discharge home today Atrial fibrillation: Metoprolol increased 100mg BID Continue coumadin with INR 2.4 today Follow up with the [facility] HTN (hypertension): On Amlodipine and Lasix, continue metoprolol If BP drops, consider to d/c amlodipine Tachy-saray syndrome: Anticipated need for pacemaker generator change in next 3 months. Stable DVT prophylaxis. Coumadin INR goal between 2-3 Full code Disposition Discharge home today Admission and Anticipated Discharge Date Admission Date: April 13, 2021 Subjective Pt was seen and examined for follow up of SOB Lying in bed comfortable with no acute distress He said that he feels fine Denies any chest pain, palpitation, dizziness and SOB Review of Systems Review of Systems: All systems reviewed & are unremarkable except as noted in Subjective Physical Exam Physical Exam: General- No acute distress Head- atraumatic Eyes- PERRL, EOMI, ENT- oropharynx clear Neck- supple, no JVD Lungs- clear to auscultation Heart- regular rhythm Abdomen- normal bowel sounds, soft, nontender Extremities- no calf tenderness Neuro- alert, oriented x 3; PERRL, EOMI; no facial palsy; no dysarthria Skin- warm & dry Results & Data Results & Data ([facility]) Vital Signs (Past 12 Hours) Vital Signs Temp Pulse Pulse Pulse Resp BP Pulse Ox 04/15/21 11:26 96 04/15/21 11:10 36.5 C 62 16 125/66 95 04/15/21 08:00 36.4 C L 76 19 144/71 H 97 04/15/21 07:14 67 04/15/21 04:00 36.4 C L 95 H 20 120/72 95 04/15/21 03:22 36.8 C 74 18 138/74 93
[2021-04-15] MEDS ORDERED: METOPROLOL TARTRATE 100 MG TAB PO SCH (21:00)
[2021-04-16] MEDS ORDERED: POTASSIUM CHLORIDE 10 MEQ TABCR PO SCH (09:00)
== END 2021-04-15 14:14 | disposition home or self-care (01) | DRG 291 ==
LOC: ED 04:07 → 2S 07:22